=== PATIENT | male | born 1985 | race Caucasian/White ===

== ENCOUNTER 2017-01-21 22:26 | Emergency (ER) | payer MEDICAID ==
[2017-01-21 23:10] LABS: BASOPHILS # (AUTO) 0.1 10^3/uL (0.0-0.1); BASOPHILS % (AUTO) 1.4 %; EOSINOPHILS # (AUTO) 0.1 10^3/uL (0.0-0.7); HCT - HEMATOCRIT 22.2 % (42.0-52.0); HGB - HEMOGLOBIN 7.6 g/dL (14.0-18.0); LYMPHOCYTES # (AUTO) 1.2 10^3/uL (1.5-3.5); LYMPHOCYTES % (AUTO) 30.4 %; MEAN CORPUSCULAR HEMOGLOBIN 30.9 pg (27.0-31.0); MEAN CORPUSCULAR HGB CONC 34.4 g/dL (32.0-36.0); MEAN CORPUSCULAR VOLUME 89.8 fL (80.0-94.0); MEAN PLATELET VOLUME 8.1 fL (7.4-11.4); MONOCYTES # (AUTO) 0.3 10^3/uL (0.0-1.0); NEUTROPHILS # (AUTO) 2.4 10^3/uL (1.5-6.6); NEUTROPHILS % (AUTO) 59.2 %; RED BLOOD COUNT 2.47 10^6/uL (4.70-6.10); RED CELL DISTRIBUTION WIDTH 13.7 % (12.0-15.0); UNCORRECTED WHITE BLOOD COUNT 4.1 x10^3/uL; WHITE BLOOD COUNT 4.1 x10^3/uL (4.8-10.8)
[2017-01-21 23:26] LABS: BILIRUBIN,TOTAL 0.3 mg/dL (0.2-1.0); CALCIUM 8.5 mg/dL (8.5-10.3); CREATININE 2.5 mg/dL (0.6-1.2); MAGNESIUM 1.8 mg/dL (1.7-2.8); PHOSPHORUS 4.6 mg/dL (2.5-4.6); POTASSIUM 4.8 mmol/L (3.5-5.0); TOTAL PROTEIN 6.6 g/dL (6.7-8.2)
[2017-01-22] MEDS ORDERED: SODIUM CHLORIDE 0.9% 1,000 ML IV ONE (00:12)
[2017-01-22] MEDS ORDERED: hydrALAZINE INJ 20 MG/ML VIAL IVP STA (00:41)
[2017-01-22] MEDS ORDERED: hydrALAZINE INJ 20 MG/ML VIAL ONE (01:08)
[2017-01-22 01:31] VITALS: BP 186/100
--- NOTE | 2017-01-22 01:37 | ED Physician Documentation ---
History of Present Illness - Stated complaint Stated Complaint: PALPITATIONS - Chief complaint Chief Complaint: Cardiac - History obtained from History obtained from: Patient, Family - History of Present Illness Timing: Today, How many days ago (2) - Additonal information Additional information: Patient is a 31 year old male with a history of type 1 diabetes, htn and ckd who is presenting to the emergency department for high blood pressure and palpitations. According to patient and family, patient's blood pressure has been out of control recently and at his last doctors appointment his lisinopril was increased from 5mg to 10mg. patient states that his pressures remained elevated and that he had some palpitations so he came in for evaluation. Patient denied any chest pain or shortness of breath at this time. Review of Systems Constitutional: denies: Fever, Chills Eyes: denies: Decreased vision, Photophobia Ears: denies: Ear pain, Drainage/discharge Nose: denies: Epistaxis Throat: reports: Reviewed and negative Cardiac: denies: Chest pain / pressure, Palpitations Respiratory: denies: Dyspnea, Cough, Wheezing GI: denies: Abdominal Pain, Nausea, Vomiting : denies: Dysuria Skin: denies: Rash, Lesions Musculoskeletal: denies: Neck pain, Back pain, Extremity pain Neurologic: denies: Generalized weakness, Focal weakness Immunocompromised: denies: Immunocompromised PD PAST MEDICAL HISTORY - Past Medical History Endocrine/Autoimmune: Type 1 diabetes - Present Medications Home Medications: Ambulatory Orders Medication Instructions Recorded Confirmed Insulin Glargine [Lantus] 36 unit SUBQ ONCE 08/03/12 08/03/12 hydrALAZINE [Apresoline] 25 mg PO TID #21 tablet 01/22/17 - Allergies Allergies/Adverse Reactions: Allergies Allergy/AdvReac Type Severity Reaction Status Date / Time clindamycin Allergy Rash Verified 01/21/17 22:34 vancomycin Allergy Rash Verified 01/21/17 22:34 - Social History Does the pt smoke?: No Smoking Status: Never smoker Does the pt drink ETOH?: Yes Does the pt have substance abuse?: Yes - POLST Patient has POLST: No PD ED PE NORMAL - Vitals Vital signs reviewed: Yes - General General: Alert and oriented X 3, Well developed/nourished - HEENT HEENT: Atraumatic, PERRL, Pharynx benign - Neck Neck: Supple, no meningeal sign, No JVD - Cardiac Cardiac: RRR, No murmur - Respiratory Respiratory: No respiratory distress, Clear bilaterally - Abdomen Abdomen: Soft, Non tender, Non distended - Derm Derm: Normal color, Warm and dry, No rash - Extremities Extremities: No deformity, Normal ROM s pain - Neuro Neuro: Alert and oriented X 3, No motor deficit, No sensory deficit, Normal speech - Psych Psych: Normal mood PD ED PE EXPANDED - HEENT HEENT: Dry mucous membranes Results - Vitals Vitals: Vital Signs - 24 hr 01/21/17 01/21/17 01/21/17 22:32 22:47 23:42 Temperature 36.7 C Heart Rate 108 H 97 96 Respiratory 24 17 12 Rate Blood Pressure 196/116 H 187/104 H 181/105 H O2 Saturation 100 100 100 01/22/17 01/22/17 01/22/17 01:08 01:14 01:19 Temperature Heart Rate 97 96 97 Respiratory 19 17 Rate Blood Pressure 192/122 H 195/104 H 185/100 H O2 Saturation 100 100 01/22/17 01/22/17 01:24 01:30 Temperature Heart Rate 96 99 Respiratory Rate Blood Pressure 180/98 H 186/100 H O2 Saturation Oxygen O2 Source Room air - EKG (time done) 2235 Rate: Rate (enter#) (100) Rhythm: Sinus tachycardia [place]: Normal Intervals: Other (ventribular bigeminy ) Ischemia: Normal ST segments Compare to prior EKG: Old EKG unavailable - Labs Labs: Laboratory Tests 01/21/17 01/21/17 22:50 22:50 WBC 4.1 L RBC 2.47 L Hgb 7.6 L Hct 22.2 L MCV 89.8 MCH 30.9 MCHC 34.4 RDW 13.7 Plt Count 200 MPV 8.1 Neut # 2.4 Lymph # 1.2 L [place] # 0.3 Eos # 0.1 Baso # 0.1 Absolute Nucleated RBC 0.00 Nucleated RBC % 0.0 Sodium 137 Potassium 4.8 Chloride 104 Carbon Dioxide 23 Anion Gap 10.0 BUN 45 H Creatinine 2.5 H Estimated GFR (MDRD) 31 L Glucose 233 H Calcium 8.5 Phosphorus 4.6 Magnesium 1.8 Total Bilirubin 0.3 AST 19 ALT 24 Alkaline Phosphatase 69 Total Protein 6.6 L Albumin 3.3 Globulin 3.3 Albumin/Globulin Ratio 1.0 Lipase 26 PD MEDICAL DECISION MAKING - ED course Complexity details: reviewed old records, reviewed results, re-evaluated patient , considered differential, d/w patient, d/w family, d/w internal consultant ED course: Patient was seen and examined at bedside. ekg was performed and showed bigeminy. IV access was gained and labs were drawn. patient was started on a fluid bolus. Patient's labs revealed multiple abnormalities but a discussion with the patient and his family revealed that the conditions where chronic in nature. 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 due to the persistence of patient's htn case was discussed with hospitalist, Dr. stewart who recommended hydralizine 25 mg tid as an outpatient. Patient was treated with hydralizine 5mg iv push with moderate decrease in blood pressure. Patient was given detailed discharge and follow up instructions. patient required no further work up and was stable for discharge with close outpatient follow up. Departure - Departure Disposition: 01 Home, Self Care Clinical Impression: HTN (hypertension) Condition: Stable Instructions: ED HTN Established Follow-Up: primary,care provider [Other] - Within 3 Days Prescriptions: hydrALAZINE [Apresoline] 25 mg PO TID #21 tablet Comments: Your blood pressure today is elevated and it seems like you have had a worsening or your renal disease. You will be started on a new blood pressure medication but have only been written for a weeks supply. You will need to follow up with your doctor early this week to discuss possibly a halter monitor , and group home management of your htn. You may return to the emergency department at any time for new, worsening or uncontrollable symptoms. Discharge Date/Time: 01/22/17 01:58
--- NOTE | 2017-01-22 01:37 | ED Physician Documentation ---
PD HPI DYSPNEA - Stated complaint Stated Complaint: PALPITATIONS - Chief complaint Chief Complaint: Cardiac - History obtained from History obtained from: Patient, Family PD PAST MEDICAL HISTORY - Past Medical History Endocrine/Autoimmune: Type 1 diabetes - Present Medications Home Medications: Ambulatory Orders Medication Instructions Recorded Confirmed Insulin Glargine [Lantus] 36 unit SUBQ ONCE 08/03/12 08/03/12 - Allergies Allergies/Adverse Reactions: Allergies Allergy/AdvReac Type Severity Reaction Status Date / Time clindamycin Allergy Rash Verified 01/21/17 22:34 vancomycin Allergy Rash Verified 01/21/17 22:34 - Social History Does the pt smoke?: No Smoking Status: Never smoker Does the pt drink ETOH?: Yes Does the pt have substance abuse?: Yes - POLST Patient has POLST: No Results - Vitals Vitals: Vital Signs - 24 hr 01/21/17 01/21/17 01/21/17 22:32 22:47 23:42 Temperature 36.7 C Heart Rate 108 H 97 96 Respiratory 24 17 12 Rate Blood Pressure 196/116 H 187/104 H 181/105 H O2 Saturation 100 100 100 01/22/17 01/22/17 01/22/17 01:08 01:14 01:19 Temperature Heart Rate 97 96 97 Respiratory 19 17 Rate Blood Pressure 192/122 H 195/104 H 185/100 H O2 Saturation 100 100 01/22/17 01/22/17 01:24 01:30 Temperature Heart Rate 96 99 Respiratory Rate Blood Pressure 180/98 H 186/100 H O2 Saturation Oxygen O2 Source Room air - Labs Labs: Laboratory Tests 01/21/17 01/21/17 22:50 22:50 WBC 4.1 L RBC 2.47 L Hgb 7.6 L Hct 22.2 L MCV 89.8 MCH 30.9 MCHC 34.4 RDW 13.7 Plt Count 200 MPV 8.1 Neut # 2.4 Lymph # 1.2 L [place] # 0.3 Eos # 0.1 Baso # 0.1 Absolute Nucleated RBC 0.00 Nucleated RBC % 0.0 Sodium 137 Potassium 4.8 Chloride 104 Carbon Dioxide 23 Anion Gap 10.0 BUN 45 H Creatinine 2.5 H Estimated GFR (MDRD) 31 L Glucose 233 H Calcium 8.5 Phosphorus 4.6 Magnesium 1.8 Total Bilirubin 0.3 AST 19 ALT 24 Alkaline Phosphatase 69 Total Protein 6.6 L Albumin 3.3 Globulin 3.3 Albumin/Globulin Ratio 1.0 Lipase 26
== END 2017-01-22 01:58 | disposition home or self-care (01) ==
LOC: ED 22:26
DX: E10.22 Type 1 diabetes mellitus with diabetic chronic kidney disease (principal); I12.9 Hypertensive chronic kidney disease with stage 1 through stage 4 chronic kidney disease, or unspecified chronic kidney disease; N18.9 Chronic kidney disease, unspecified; Z79.4 Long term (current) use of insulin
CPT/HCPCS: 36415; 80053; 83690; 83735; 84100; 85025; 93005; 96361; 96374; 99284

== ENCOUNTER 2017-01-22 10:28 | Inpatient (IN) | payer MEDICAID ==
[2017-01-22] MEDS ORDERED: SODIUM CHLORIDE 0.9% 1,000 ML IV ONE ×2 (10:55→12:41)
[2017-01-22 11:04] LABS: EOSINOPHILS # (AUTO) 0.1 10^3/uL (0.0-0.7); EOSINOPHILS % (AUTO) 1.1 %; HCT - HEMATOCRIT 24.6 % (42.0-52.0); HGB - HEMOGLOBIN 8.6 g/dL (14.0-18.0); LYMPHOCYTES # (AUTO) 0.8 10^3/uL (1.5-3.5); LYMPHOCYTES % (AUTO) 15.7 %; MEAN CORPUSCULAR VOLUME 88.6 fL (80.0-94.0); MEAN PLATELET VOLUME 8.1 fL (7.4-11.4); MONOCYTES # (AUTO) 0.2 10^3/uL (0.0-1.0); MONOCYTES % (AUTO) 4.9 %; NEUTROPHILS # (AUTO) 3.8 10^3/uL (1.5-6.6); NEUTROPHILS % (AUTO) 77.3 %; RED BLOOD COUNT 2.77 10^6/uL (4.70-6.10); RED CELL DISTRIBUTION WIDTH 13.3 % (12.0-15.0); UNCORRECTED WHITE BLOOD COUNT 4.9 x10^3/uL; WHITE BLOOD COUNT 4.9 x10^3/uL (4.8-10.8)
[2017-01-22 11:11] LABS: BUN - BLOOD UREA NITROGEN 39 mg/dL (6-20); CALCIUM 8.9 mg/dL (8.5-10.3); CARBON DIOXIDE - CO2 22 mmol/L (21-32); CHLORIDE 107 mmol/L (101-111); CREATININE 2.3 mg/dL (0.6-1.2); GFR - MDRD 34 (>89); GLUCOSE 270 mg/dL (70-100); MAGNESIUM 1.7 mg/dL (1.7-2.8); PHOSPHORUS 3.5 mg/dL (2.5-4.6); POTASSIUM 5.1 mmol/L (3.5-5.0); SODIUM 138 mmol/L (135-145)
[2017-01-22 11:27] LABS: ABG ANALYSIS TIME 1115; ABG PCO2 31 mmHg (34-45); ABG PH 7.46 (7.35-7.45); ABG PO2 116 mmHg (80-100)
[2017-01-22 11:28] LABS: ABG HCO3 21.6 mmol/L (22.0-26.0); ABG OXYGEN SATURATION 99 % (94-98); ABG ROOM AIR YES; ABG SITE OF DRAW RIGHT RADIAL; ALLEN TEST POSITIVE
--- NOTE | 2017-01-22 11:35 | XRAY Preliminary Report ---
Exam: XR CHEST 1 VIEW IMPRESSION: 1. No acute disease in the chest. [facility] SITE ID: [id number]
--- NOTE | 2017-01-22 11:37 | XRAY Report ---
EXAM: CHEST RADIOGRAPHY EXAM DATE: 01/22/2017 11:08 AM. CLINICAL HISTORY: Vomiting blood. COMPARISON: 05/06/2012. TECHNIQUE: 1 view. FINDINGS: Lungs/Pleura: No focal opacities evident. No pleural effusion. No pneumothorax. Mediastinum: Within exam limitations, the cardiomediastinal contour is normal. Other: None. IMPRESSION: 1. No acute disease in the chest. [facility] Referring Provider Line: [phone] SITE ID: [id number]
[2017-01-22] MEDS ORDERED: ONDANSETRON 4 MG/2 ML VIAL ONE ×2 (13:04→13:22)
[2017-01-22] MEDS ORDERED: PANTOPRAZOLE 40 MG VIAL IVP STA (13:14)
[2017-01-22] MEDS ORDERED: ONDANSETRON 4 MG/2 ML VIAL IVP STA (13:14)
[2017-01-22] MEDS ORDERED: hydrALAZINE INJ 20 MG/ML VIAL IVP PRN (13:22)
[2017-01-22] MEDS ORDERED: PANTOPRAZOLE 40 MG VIAL ONE (13:23)
--- NOTE | 2017-01-22 13:28 | ED Physician Documentation ---
History of Present Illness - Stated complaint Stated Complaint: VOMITING BLOOD/HIGH BP - Chief complaint Chief Complaint: Abd Pain - History obtained from History obtained from: Patient (Pt is a type 1 DM with known renal issues here for is 3rd ED visit in 3 days (2nd one at this hosptial) for HTN. today he is here for voiting that was streaked with blood.) Review of Systems Constitutional: denies: Fever, Chills Nose: denies: Congestion, Sinus pressure / pain Throat: denies: Dental pain / toothache, Sore throat Cardiac: denies: Chest pain / pressure, Palpitations Respiratory: denies: Dyspnea, Cough, Wheezing GI: reports: Abdominal Pain, Nausea, Vomiting. denies: Constipation, Diarrhea : denies: Dysuria, Frequency Skin: denies: Rash, Laceration (s) Musculoskeletal: denies: Back pain Neurologic: reports: Generalized weakness. denies: Numbness, Confused, Altered mental status, Headache PD PAST MEDICAL HISTORY - Past Medical History Cardiovascular: Hypertension Endocrine/Autoimmune: Type 1 diabetes : Renal insuffiency Other Past Medical History: Stage III kidney failure. Continous glucose monitor back of left arm, insulin pump to right lower abdomen - Present Medications Home Medications: Ambulatory Orders Medication Instructions Recorded Confirmed Insulin Glargine [Lantus] 36 unit SUBQ ONCE 08/03/12 08/03/12 hydrALAZINE [Apresoline] 25 mg PO TID #21 tablet 01/22/17 - Allergies Allergies/Adverse Reactions: Allergies Allergy/AdvReac Type Severity Reaction Status Date / Time clindamycin Allergy Rash Verified 01/21/17 22:34 vancomycin Allergy Rash Verified 01/21/17 22:34 - Social History Does the pt smoke?: No Smoking Status: Never smoker Does the pt drink ETOH?: Yes Does the pt have substance abuse?: Yes - Immunizations Immunizations are current?: Yes - POLST Patient has POLST: No PD ED PE NORMAL - Vitals Vital signs reviewed: Yes - General General: Alert and oriented X 3, No acute distress (mild distress), Well developed/nourished - HEENT HEENT: Atraumatic, PERRL - Cardiac Cardiac: No murmur, No rub. No: RRR (tachycardic but regular) - Respiratory Respiratory: No respiratory distress, Clear bilaterally - Abdomen Abdomen: Soft, Non tender, Non distended - Back Back: No CVA TTP - Derm Derm: Warm and dry, No rash. No: Normal color (pale) - Extremities Extremities: No deformity, No tenderness to palpate - Neuro Neuro: Alert and oriented X 3 Eye Opening: Spontaneous Motor: Obeys Commands Verbal: Oriented GCS Score: 15 - Psych Psych: Normal mood, Normal affect Results - Vitals Vitals: Vital Signs - 24 hr 01/22/17 01/22/17 01/22/17 10:34 11:16 11:25 Temperature 36.2 C L Heart Rate 106 H 108 H 109 H Respiratory 24 14 13 Rate Blood Pressure 178/103 H 177/105 H 191/141 H O2 Saturation 100 100 100 01/22/17 01/22/17 01/22/17 11:59 12:47 13:01 Temperature 36.2 C L Heart Rate 108 H 107 H 110 H Respiratory 12 14 20 Rate Blood Pressure 209/127 H 199/113 H 211/96 H O2 Saturation 100 100 100 Oxygen O2 Source Room air - EKG (time done) 1100 Rate: Rate (enter#) Rhythm: Sinus tachycardia [place]: Normal Intervals: Normal IN QRS: Normal Ischemia: Non specific changes Other comments: Other comments (Multiple PVC (trigeminy) ) - Labs Labs: Laboratory Tests 01/22/17 01/22/17 01/22/17 10:42 10:45 10:45 WBC 4.9 RBC 2.77 L Hgb 8.6 L Hct 24.6 L MCV 88.6 MCH 31.0 MCHC 35.0 RDW 13.3 Plt Count 186 MPV 8.1 Neut # 3.8 Lymph # 0.8 L [place] # 0.2 Eos # 0.1 Baso # 0.0 Absolute Nucleated RBC 0.00 Nucleated RBC % 0.0 Bld Gas Analysis Time Sample Site ABG pH ABG pCO2 ABG pO2 ABG HCO3 ABG Total CO2 ABG O2 Saturation ABG Base Excess Ozzy Test Room Air Sodium 138 Potassium 5.1 H Chloride 107 Carbon Dioxide 22 Anion Gap 9.0 BUN 39 H Creatinine 2.3 H Estimated GFR (MDRD) 34 L Glucose 270 H POC Whole Bld Glucose 264 H Lactic Acid Calcium 8.9 Phosphorus 3.5 Magnesium 1.7 Serum Ketones NEGATIVE 01/22/17 01/22/17 10:45 11:15 WBC RBC Hgb Hct MCV MCH MCHC RDW Plt Count MPV Neut # Lymph # [place] # Eos # Baso # Absolute Nucleated RBC Nucleated RBC % Bld Gas Analysis Time 1115 Sample Site RIGHT RADIAL ABG pH 7.46 H ABG pCO2 31 L ABG pO2 116 H ABG HCO3 21.6 L ABG Total CO2 23.0 ABG O2 Saturation 99 H ABG Base Excess -2.0 Ozzy Test POSITIVE Room Air YES Sodium Potassium Chloride Carbon Dioxide Anion Gap BUN Creatinine Estimated GFR (MDRD) Glucose POC Whole Bld Glucose Lactic Acid 0.6 Calcium Phosphorus Magnesium Serum Ketones - Rads (name of study) CXR Radiology: Final report received PD MEDICAL DECISION MAKING - ED course Complexity details: d/w patient ED course: Pt anemic, tachycardic and vomiting. his creat elevated today. pt states that he has had kidney issues in the past but did not know his creat elevation. he states that he has been anemic in the past and has had iron transfusions but never a blood transfusion. He denied rectal bleeding. Has been in DKA in the past but with normal ABG today does not appear to be in DKA today. No urinary sx but he has not been able to urinate for us. I suspect his elevated creat and tachycardia is from dehydration. Hs BP is elevated today. No ABD pain. Gave protonix in the ER for his blood streaked vomit and his anemia to cover for a GI bleed. Discussed case with inpatient team will admit. Departure - Departure Disposition: ED Place in Observation Clinical Impression: Dehydration, Acute kidney injury Type 1 diabetes mellitus Qualifiers: Diabetes mellitus complication status: with unspecified complications Qualified Code(s): E10.8 - Type 1 diabetes mellitus with unspecified complications Hypertension Qualifiers: Hypertension type: unspecified Qualified Code(s): I10 - Essential (primary) hypertension Anemia Qualifiers: Anemia type: unspecified type Qualified Code(s): D64.9 - Anemia, unspecified Condition: Stable
[2017-01-22] MEDS ORDERED: ACETAMINOPHEN 325 MG TABLET PO PRN (13:47)
[2017-01-22] MEDS ORDERED: ONDANSETRON 4 MG/2 ML VIAL IVP PRN (13:47)
[2017-01-22] MEDS ORDERED: SODIUM CHLORIDE FLUSH 0.9% 10 ML SYRINGE IVP PRN (13:47)
--- NOTE | 2017-01-22 14:17 | HISTORY & PHYSICAL EXAMINATION ---
Chief Complaint - Chief Complaint Chief Complaint: nausea, vomiting and hypertensive History of Present Illness - Admitted From Admitted From:: ER - History Obtained From History obtained from: pt and his - History of Present Illness HPI Comment/Other: This is a 31-year-old male with a past medical history significance for DM1 since 10 years old on insulin Pump, HTN, chronic renal insufficiency, who present ER for evaluation of nausea, vomiting and hypertensive. Pt's alert and oriented, and generalized weakness. Pt's mainly provide the information. Pt had a regular visit on [facility] to visit his PCP, also his Assistant Office Manager four day ago. Pt also had two visits to his ER for hypertensive. Pt did not feel better and began to have nausea and vomiting. Pt' s vomiting was also streaked with very small blood. Pt's report this happened before when pt had an extensive vomiting. Pt use his insulin pump to control his glucose. Pt has a chronic anemia for at least one year. 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 Pt report he has some headache, and also state it may derive from his high blood pressure. Pt denies chest pain, fever, chill, cough, shortness of breath, abdominal pain, diarrhea, dysuria, hematuria, vision changing, GI bleeding. lab test in ER reveals BUN 39, creatinine 2.3, glucose 264, lactic acid 0.6, serum ketones is negative, Potassium 5.1, HGB 8.6, HCT 24.6. BP is 210/109, HR 104. CXR is unremarkable. History - Past Medical History Cardiovascular: reports: Hypertension Endocrine/Autoimmune: reports: Type 1 diabetes : reports: Renal insuffiency MRSA Hx?: Yes Other Past Medical History: Stage III kidney failure. Continous glucose monitor back of left arm, insulin pump to right lower abdomen - Family & Social History Living arrangement: At home Living Situation: With spouse/s.o. - POLST Patient has POLST: No Meds/Allgy - Home Medications Home Medications: Ambulatory Orders Medication Instructions Recorded Confirmed Imipramine [Tofranil] 50 mg PO QPM 01/22/17 01/22/17 Insulin Aspart (Vial) [NovoLOG 32 - 36 unit SUBQ DAILY 01/22/17 01/22/17 (VIAL FOR ED USE)] Lisinopril 10 mg PO QPM 01/22/17 01/22/17 - Allergies Allergies/Adverse Reactions: Allergies Allergy/AdvReac Type Severity Reaction Status Date / Time clindamycin Allergy Rash Verified 01/21/17 22:34 vancomycin Allergy Rash Verified 01/21/17 22:34 hydralazine AdvReac Emesis Verified 01/22/17 16:20 Review of Systems - Constitutional Constitutional: reports: Fatigue, Weakness. denies: Fever, Chills, Malaise, Diaphoresis, Night sweats - Eyes Eyes: denies: Pain, Irritation, Amaurosis, Blurred vision, Spots in vision, Field loss, Vision loss, Dipolpia - Ears, Nose & Throat Ears, Nose & Throat: denies: Ear pain, Hearing loss, Hearing aids, Vertigo, Nasal pain, Nasal discharge, Nosebleeds, Nasal obstruction, Nasal congestion, Sore throat, Mouth lesions, Bleeding gums - Cardiovascular Cariovascular: denies: Irregular heart rate, Palpitations, Chest pain, Edema, Lightheadedness, Syncope, Exertional dyspnea, Decr. exercise tolerance - Respiratory Respiratory: denies: Cough, Sputum production, Wheezing, Snoring, Hemoptysis, Orthopnea, SOB at rest, SOB with exertion - Gastrointestinal Gastrointestinal: reports: Nausea, Vomiting. denies: Abdominal pain, Abdominal distention, Constipation, Diarrhea, Change in bowel habits, Rectal bleeding, Black stools, Bloody stools, Torres blood emesis, Coffee grounds emesis - Genitourinary Genitourinary: denies: Dysuria, Frequency, Urgency, Hematuria, Incontinence, Flank pain, Nocturia - Musculoskeletal Musculoskeletal: denies: Muscle pain, Back pain, Muscle aches, Stiffness, Limited range of motion, Muscle weakness, Gout, Joint pain - Integumentary Integumentary: denies: Rash, Pruritis, Lesions, Dryness, Acne, Pigment changes - Neurological Neurological: reports: General weakness. denies: Focal weakness, Dizziness, Numbness, Memory problems, Pre-existing deficit, Abnormal gait, Seizures, Incoordination, Slurred speech - Psychiatric Psychiatric: denies: Depression, Anxiety, Suicidal, Delusions, Hallucinations, Homicidal - Endocrine Endocrine: denies: Polyuria, Polydypsia, Polyphagia, Intolerance to cold - Hematologic/Lymphatic Hematologic/Lymphatic: reports: Anemia. denies: Bruising, Petechiae, Blood clots, Lymphadenopathy, Bleeding tendencies, Recurrent infections Exam - Vital Signs Reviewed Vital Signs: Yes Vital Signs: Vital Signs x48h Pulse Resp BP Pulse Ox 01/22/17 13:48 104 H 12 210/107 H 96 - Physical Exam General Appearance: positive: No acute distress, Alert. negative: Lethargic Eyes Bilateral: positive: Normal inspection, PERRL, No lid inflammation, Conjunctivae nml ENT: positive: ENT inspection nml, Pharynx nml, No signs of dehydration. negative: Purulent nasal drainage, Pharyngeal erythema, Oral lesions Neck: positive: Nml inspection, Thyroid nml, No JVD, Trachea midline. negative : Thyromegaly, Lymphadenopathy (R), Lymphadenopathy (L), Stiff neck, Carotid bruit, Swelling/bruising, Tracheal deviation Respiratory: positive: Chest non-tender, No respiratory distress, Breath sounds nml. negative: Wheezes, Rales, Rhonchi Cardiovascular: positive: Regular rate & rhythm, No murmur, No gallop. negative : Tachycardia, Bradycardia, Systolic murmur, Diastolic murmur Peripheral Pulses: positive: 2+ Abdomen: positive: Non-tender, No organomegaly, Nml bowel sounds, No distention. negative: Tenderness, Guarding, Rebound Back: positive: Nml inspection. negative: CVA tenderness (R), CVA tenderness (L ) Skin: positive: Color nml, No rash, Warm, Dry. negative: Cyanosis, Diaphoresis , Pallor, Skin rash Extremities: positive: Non-tender, Full ROM, Nml appearance. negative: Calf tenderness, Joint swelling, Fariha's sign/cords Neurologic/Psychiatric: positive: Oriented x3, Sensation nml, Mood/affect nml. negative: Sensory loss, Facial droop, Slurred/abnml speech, Depressed mood/ affect Conclusion/Plan - Problem List (1) HTN (hypertension) Conclusion/Plan: pt's BP is over 200/109, and HR over 100 in ER, pt had chronic renal insufficiency hold home BP Lisinopril once Metoprolol IV 5 mg add Clonidine PRN 25 mg metoprolol Bid vital, tele monitor daily lab Qualifiers: Hypertension type: unspecified Qualified Code(s): I10 - Essential (primary ) hypertension (2) Type 1 diabetes mellitus Conclusion/Plan: pt may use home insulin Pump ACHS check A1C hypoglycemia protocol Qualifiers: Diabetes mellitus complication status: with unspecified complications Qualified Code(s): E10.8 - Type 1 diabetes mellitus with unspecified complications (3) Acute kidney injury Conclusion/Plan: Four years ago, pt's renal function in [facility], may acute on chronic renal insufficiency. Pt ER already had two bag NS continue 100 cc/h NS daily lab monitor renal function vital monitor hold nephrotoxic agent. US of kidney check CKP UA is pending , will follow up (4) Anemia Conclusion/Plan: pt had chronic anemia, pt had CKD order anemia study, will follow. Pt's HGB 8.7, asymptomatic pt already had Cross and match study, Qualifiers: Anemia type: unspecified type Qualified Code(s): D64.9 - Anemia, unspecified (5) Hematemesis/vomiting blood Conclusion/Plan: pt's state only happen when pt had streaked vomiting, and small amount will check H&H closely monitor will follow up if pt need scopy (6) Hyperkalemia Conclusion/Plan: pt's K is 5.1. will recheck potassium level EKG follow up (7) DVT prophylaxis Conclusion/Plan: SCD and Heparin (8) Full code status Conclusion/Plan: pt request full code status - Lab Results Fish Bones: 01/22/17 10:45 01/22/17 14:03 Issues/Core Measures - Anticipated LOS Anticipated Stay Length: Less than 2 midnights (expect less than 2 midnight)
[2017-01-22 14:39] LABS: HEMOGLOBIN A1C 0.59 g/dL
[2017-01-22] MEDS: SODIUM CHLORIDE FLUSH 0.9% 10 ML SYRINGE IVP SCH ×2 (15:12→22:43)
[2017-01-22] MEDS: SODIUM CHLORIDE 0.9% 1,000 ML IV SCH (15:16)
[2017-01-22] MEDS: PROMETHAZINE 25 MG/1 ML VIAL IM PRN ×2 (15:22→21:57)
[2017-01-22] MEDS ORDERED: METOPROLOL 5 MG/5 ML VIAL IVP SCH (16:00)
[2017-01-22 17:00] LABS: IMMATURE RETIC FRACTION 0.39; RED BLOOD COUNT 2.5 10^6/uL (4.70-6.10)
[2017-01-22 17:06] LABS: HCT - HEMATOCRIT 22.8 % (42.0-52.0); HGB - HEMOGLOBIN 7.8 g/dL (14.0-18.0)
[2017-01-22 18:00] LABS: BILIRUBIN,URINE NEGATIVE (NEGATIVE)
[2017-01-22 18:01] LABS: FERRITIN 230.6 ng/mL (23.9-336.2)
[2017-01-22 18:02] LABS: UA w/ MICROSCOPIC CHARGE YES
[2017-01-22 18:11] LABS: UR CULTURE IF IND NOT INDICATED
[2017-01-22 18:58] LABS: IRON 64 ug/dL (45-182); TOTAL IRON BINDING CAPACITY 251 ug/dL (250-450); TRANSFERRIN 179 mg/dL (180-329)
--- NOTE | 2017-01-22 20:10 | Ultrasound Preliminary Report ---
Exam: US RETROPERITONEAL IMPRESSION: No hydronephrosis. [facility] SITE ID: [id number]
--- NOTE | 2017-01-22 20:29 | Ultrasound Report ---
EXAM: RENAL ULTRASOUND EXAM DATE: 01/22/2017 08:00 PM. CLINICAL HISTORY: Acute on chronic kidney disease. COMPARISON: None. TECHNIQUE: Real-time scanning was performed with static images obtained. FINDINGS: Right Kidney: 12.7 x 5.1 x 6.3 cm. Normal echotexture with no stones, contour-deforming masses, or h ydronephrosis. Left Kidney: 12.4 x 6.2 x 7.2 cm. Normal echotexture with no stones, contour-deforming masses, or hyd ronephrosis. Bladder: Bilateral jets seen. The prevoid bladder volume was 346.9 mL. The postvoid bladder volume wa s 235.3 mL. IMPRESSION: 1. No hydronephrosis. 2. Large post void residual in the bladder. [facility] Referring Provider Line: [phone] SITE ID: [id number]
[2017-01-22] MEDS ORDERED: METOPROLOL SUCCINATE 25 MG TABLET PO SCH ×2 (21:00)
[2017-01-22] MEDS ORDERED: ZOLPIDEM 5 MG TABLET PO PRN (21:03)
[2017-01-22] MEDS ORDERED: BENZOCAINE/MENTHOL LOZENGE MM PRN (21:03)
[2017-01-22] MEDS: HEPARIN 5,000 UNIT/ML VIAL SUBQ SCH (21:09)
[2017-01-22] MEDS: METOPROLOL SUCCINATE 25 MG TABLET PO SCH (21:09)
[2017-01-23] MEDS: SODIUM CHLORIDE 0.9% 1,000 ML IV SCH (01:14)
[2017-01-23 04:53] LABS: BASOPHILS # (AUTO) 0.1 10^3/uL (0.0-0.1); EOSINOPHILS % (AUTO) 0.7 %; HCT - HEMATOCRIT 20.2 % (42.0-52.0); HGB - HEMOGLOBIN 7.1 g/dL (14.0-18.0); LYMPHOCYTES # (AUTO) 1.6 10^3/uL (1.5-3.5); LYMPHOCYTES % (AUTO) 27.1 %; MEAN CORPUSCULAR HEMOGLOBIN 31.4 pg (27.0-31.0); MEAN CORPUSCULAR HGB CONC 35.3 g/dL (32.0-36.0); MEAN PLATELET VOLUME 7.9 fL (7.4-11.4); MONOCYTES # (AUTO) 0.5 10^3/uL (0.0-1.0); MONOCYTES % (AUTO) 7.8 %; NEUTROPHILS # (AUTO) 3.8 10^3/uL (1.5-6.6); NEUTROPHILS % (AUTO) 63.4 %; NUCLEATED RED BLOOD CELLS AUTO 0.2 /100WBC; RED BLOOD COUNT 2.28 10^6/uL (4.70-6.10); RED CELL DISTRIBUTION WIDTH 13.5 % (12.0-15.0)
[2017-01-23] MEDS: SODIUM CHLORIDE FLUSH 0.9% 10 ML SYRINGE IVP SCH ×3 (05:04→20:48)
[2017-01-23] MEDS: PANTOPRAZOLE 40 MG VIAL IVP SCH (05:04)
[2017-01-23] MEDS: PROMETHAZINE 25 MG/1 ML VIAL IM PRN (05:04)
[2017-01-23 05:05] LABS: ALBUMIN/GLOBULIN RATIO 0.9 (1.0-2.2); BILIRUBIN,TOTAL 0.3 mg/dL (0.2-1.0); CALCIUM 8.4 mg/dL (8.5-10.3); CREATININE 2.3 mg/dL (0.6-1.2); MAGNESIUM 1.7 mg/dL (1.7-2.8); TOTAL PROTEIN 5.8 g/dL (6.7-8.2)
[2017-01-23] MEDS: POLYETHYLENE GLYCOL 3350 17 GM PACKET PO SCH (07:41)
[2017-01-23] MEDS: HEPARIN 5,000 UNIT/ML VIAL SUBQ SCH ×2 (08:49→20:44)
[2017-01-23] MEDS: METOPROLOL SUCCINATE 25 MG TABLET PO SCH ×2 (08:50→20:48)
[2017-01-23 10:18] LABS: HCT - HEMATOCRIT 21.2 % (42.0-52.0); HGB - HEMOGLOBIN 7.3 g/dL (14.0-18.0)
[2017-01-23] MEDS: FERROUS SULFATE 325 MG TABLET PO SCH (10:45)
[2017-01-23] MEDS: cloNIDine 0.1 MG TABLET PO PRN (14:05)
[2017-01-23] MEDS ORDERED: METOPROLOL TARTRATE 50 MG TABLET PO ONE (16:00)
[2017-01-23 18:34] LABS: HCT - HEMATOCRIT 28.3 % (42.0-52.0); HGB - HEMOGLOBIN 9.5 g/dL (14.0-18.0)
--- NOTE | 2017-01-23 18:37 | PROVIDER PROGRESS NOTE ---
Subjective - Prog Note Date Prog Note Date: 01/23/17 Objective - Vital Signs/Intake & Output Vital Signs: Vital Signs x48h Temp Pulse Pulse Resp BP BP Pulse Ox 01/23/17 17:46 37.0 C 76 16 151/98 H 01/23/17 15:36 179/101 H 01/23/17 15:19 92 179/101 H 01/23/17 14:41 37.1 C 93 16 167/101 H 01/23/17 14:24 37.0 C 95 16 174/106 H 01/23/17 13:56 36.9 C 95 16 172/102 H 01/23/17 13:00 36.9 C 95 16 172/102 H 99 01/23/17 10:48 36.9 C 87 16 151/96 H Intake & Output: Intake & Output 01/20/17 01/21/17 01/22/17 01/23/17 23:59 23:59 23:59 23:59 Intake Total 1200 5313.667 Output Total 1100 300 Balance 100 5013.667 - Lab Results Fish Bones: 01/23/17 18:16 01/23/17 04:40 Other Labs: Lab Results x24hrs 01/23/17 01/23/17 01/23/17 Range/Units 10:06 04:40 04:40 WBC 6.0 (4.8-10.8) x10^3/uL RBC 2.28 L (4.70-6.10) 10^6/uL Hgb 7.3 L 7.1 L (14.0-18.0) g/dL Hct 21.2 L 20.2 L (42.0-52.0) % MCV 89.0 (80.0-94.0) fL MCH 31.4 H (27.0-31.0) pg MCHC 35.3 (32.0-36.0) g/dL RDW 13.5 (12.0-15.0) % Plt Count 161 (130-450) 10^3/uL MPV 7.9 (7.4-11.4) fL Neut # 3.8 (1.5-6.6) 10^3/uL Lymph # 1.6 (1.5-3.5) 10^3/uL [place] # 0.5 (0.0-1.0) 10^3/uL Eos # 0.0 (0.0-0.7) 10^3/uL Baso # 0.1 (0.0-0.1) 10^3/uL Absolute Nucleated RBC 0.01 x10^3/uL Nucleated RBC % 0.2 /100WBC Sodium 144 (135-145) mmol/L Potassium 4.0 (3.5-5.0) mmol/L Chloride 115 H (101-111) mmol/L Carbon Dioxide 22 (21-32) mmol/L Anion Gap 7.0 (6-13) BUN 35 H (6-20) mg/dL Creatinine 2.3 H (0.6-1.2) mg/dL Estimated GFR (MDRD) 34 L (>89) Glucose 63 L (70-100) mg/dL Calcium 8.4 L (8.5-10.3) mg/dL Magnesium 1.7 (1.7-2.8) mg/dL Iron (45-182) ug/dL TIBC (250-450) ug/dL % Saturation (20-50) % Transferrin (180-329) mg/dL Total Bilirubin 0.3 (0.2-1.0) mg/dL AST 19 (10-42) IU/L ALT 21 (10-60) IU/L Alkaline Phosphatase 56 (42-121) IU/L Total Protein 5.8 L (6.7-8.2) g/dL Albumin 2.8 L (3.2-5.5) g/dL Globulin 3.0 (2.1-4.2) g/dL Albumin/Globulin Ratio 0.9 L (1.0-2.2) 01/22/17 Range/Units 16:47 WBC (4.8-10.8) x10^3/uL RBC (4.70-6.10) 10^6/uL Hgb (14.0-18.0) g/dL Hct (42.0-52.0) % MCV (80.0-94.0) fL MCH (27.0-31.0) pg MCHC (32.0-36.0) g/dL RDW (12.0-15.0) % Plt Count (130-450) 10^3/uL MPV (7.4-11.4) fL Neut # (1.5-6.6) 10^3/uL Lymph # (1.5-3.5) 10^3/uL [place] # (0.0-1.0) 10^3/uL Eos # (0.0-0.7) 10^3/uL Baso # (0.0-0.1) 10^3/uL Absolute Nucleated RBC x10^3/uL Nucleated RBC % /100WBC Sodium (135-145) mmol/L Potassium (3.5-5.0) mmol/L Chloride (101-111) mmol/L Carbon Dioxide (21-32) mmol/L Anion Gap (6-13) BUN (6-20) mg/dL Creatinine (0.6-1.2) mg/dL Estimated GFR (MDRD) (>89) Glucose (70-100) mg/dL Calcium (8.5-10.3) mg/dL Magnesium (1.7-2.8) mg/dL Iron 64 (45-182) ug/dL TIBC 251 (250-450) ug/dL % Saturation 26 (20-50) % Transferrin 179 L (180-329) mg/dL Total Bilirubin (0.2-1.0) mg/dL AST (10-42) IU/L ALT (10-60) IU/L Alkaline Phosphatase (42-121) IU/L Total Protein (6.7-8.2) g/dL Albumin (3.2-5.5) g/dL Globulin (2.1-4.2) g/dL Albumin/Globulin Ratio (1.0-2.2) Assessment/Plan - Problem List (1) HTN (hypertension) Impression: Conclusion/Plan: adjust 25 mg metoprolol to 50 mg bid, since pt's BP is still around 160-170, HR around 90 continue vital monitor plan D/C tomorrow pt's BP is over 200/109, and HR over 100 in ER, pt had chronic renal insufficiency hold home BP Lisinopril once Metoprolol IV 5 mg add Clonidine PRN 25 mg metoprolol Bid vital, tele monitor daily lab (2) Type 1 diabetes mellitus Conclusion/Plan: stable, continue insulin PUMP ACHS hypoglycemia protocol pt may use home insulin Pump ACHS check A1C hypoglycemia protocol (3) Acute kidney injury Conclusion/Plan: US of kidney reviewed, unremarkable, the cause of injury appear from DM1 uncontrolled glucose and uncontrolled HTN hydration control glucose by insulin PUMP control HTN by BP meds Four years ago, pt's renal function in [facility], may acute on chronic renal insufficiency. Pt ER already had two bag NS continue 100 cc/h NS daily lab monitor renal function vital monitor hold nephrotoxic agent. US of kidney check CKP UA is pending , will follow up (4) Anemia Conclusion/Plan: pt denies any GI and rectal GI blood transfused two units of blood will recheck HGB level pt had chronic anemia, pt had CKD order anemia study, will follow. Pt's HGB 8.7, asymptomatic pt already had Cross and match study, (5) Hematemesis/vomiting blood Conclusion/Plan: pt report he did not have hematemesis recheck CBC, follow up pt's state only happen when pt had streaked vomiting, and small amount will check H&H closely monitor will follow up if pt need scopy (6) Hyperkalemia Conclusion/Plan: resolved pt's K is 5.1. will recheck potassium level EKG follow up Qualifiers: Hypertension type: unspecified Qualified Code(s): I10 - Essential (primary ) hypertension (2) Type 1 diabetes mellitus Qualifiers: Diabetes mellitus complication status: with unspecified complications Qualified Code(s): E10.8 - Type 1 diabetes mellitus with unspecified complications (4) Anemia Qualifiers: Anemia type: unspecified type Qualified Code(s): D64.9 - Anemia, unspecified
[2017-01-24 05:18] LABS: EOSINOPHILS # (AUTO) 0.1 10^3/uL (0.0-0.7); EOSINOPHILS % (AUTO) 1.9 %; HCT - HEMATOCRIT 29.3 % (42.0-52.0); HGB - HEMOGLOBIN 10.1 g/dL (14.0-18.0); LYMPHOCYTES # (AUTO) 1.5 10^3/uL (1.5-3.5); LYMPHOCYTES % (AUTO) 33.9 %; MEAN CORPUSCULAR HEMOGLOBIN 30.5 pg (27.0-31.0); MEAN CORPUSCULAR HGB CONC 34.4 g/dL (32.0-36.0); MEAN CORPUSCULAR VOLUME 88.7 fL (80.0-94.0); MEAN PLATELET VOLUME 8.2 fL (7.4-11.4); MONOCYTES # (AUTO) 0.4 10^3/uL (0.0-1.0); MONOCYTES % (AUTO) 9.7 %; NEUTROPHILS # (AUTO) 2.4 10^3/uL (1.5-6.6); NEUTROPHILS % (AUTO) 53.5 %; RED BLOOD COUNT 3.31 10^6/uL (4.70-6.10); RED CELL DISTRIBUTION WIDTH 14.4 % (12.0-15.0); UNCORRECTED WHITE BLOOD COUNT 4.5 x10^3/uL; WHITE BLOOD COUNT 4.5 x10^3/uL (4.8-10.8)
[2017-01-24 05:35] LABS: ALBUMIN/GLOBULIN RATIO 0.9 (1.0-2.2); BILIRUBIN,TOTAL 0.4 mg/dL (0.2-1.0); CALCIUM 8.6 mg/dL (8.5-10.3); CREATININE 2.1 mg/dL (0.6-1.2); POTASSIUM 3.8 mmol/L (3.5-5.0); TOTAL PROTEIN 6.4 g/dL (6.7-8.2)
[2017-01-24] MEDS: PANTOPRAZOLE 40 MG VIAL IVP SCH (06:46)
[2017-01-24] MEDS: SODIUM CHLORIDE FLUSH 0.9% 10 ML SYRINGE IVP SCH ×3 (06:46→20:50)
[2017-01-24] MEDS: POLYETHYLENE GLYCOL 3350 17 GM PACKET PO SCH (07:48)
[2017-01-24] MEDS: FERROUS SULFATE 325 MG TABLET PO SCH (08:02)
[2017-01-24] MEDS: HEPARIN 5,000 UNIT/ML VIAL SUBQ SCH (08:02)
[2017-01-24] MEDS: METOPROLOL SUCCINATE 25 MG TABLET PO SCH ×2 (08:03→20:50)
[2017-01-24] MEDS: amLODIPine 5 MG TABLET PO SCH (10:02)
[2017-01-24] MEDS: cloNIDine 0.1 MG TABLET PO PRN (11:39)
[2017-01-24] MEDS: metOLazone 2.5 MG TABLET PO SCH (14:04)
[2017-01-24] MEDS ORDERED: amLODIPine 5 MG TABLET PO ONE (17:00)
--- NOTE | 2017-01-24 18:22 | PROVIDER PROGRESS NOTE ---
Subjective - Prog Note Date Prog Note Date: 01/24/17 Prog Note Time: 08:00 - Subjective Pt reports feeling: No change Subjective: Earl wishes to go home, but still struggling with B/P control. He has no other complaints. He denies SOB, chest pain, N/V or new cough. He had a headache earlier, but now has subsided. Current Medications - Current Medications Current Medications: Active Medications Generic Name Dose Route Start Last Admin Trade Name Freq PRN Reason Stop Dose Admin Acetaminophen 650 mg 01/22/17 13:47 01/22/17 21:08 Tylenol PO 650 mg Q4HR PRN Administration Pain 1 to 4 Amlodipine Besylate 5 mg 01/24/17 09:00 01/24/17 10:02 Norvasc PO 5 mg DAILY MARY Administration Clonidine HCl 0.1 mg 01/22/17 13:27 01/24/17 11:39 Catapres PO 0.1 mg BID PRN Administration Hypertensive Emergency Ferrous Sulfate 325 mg 01/23/17 10:00 01/24/17 08:02 Feosol PO 325 mg DAILYWM MARY Administration Heparin Sodium (Porcine) 5,000 unit 01/22/17 21:00 01/24/17 08:02 SUBQ Not Given BID MARY Metolazone 2.5 mg 01/24/17 14:00 01/24/17 14:04 Zaroxolyn PO 2.5 mg DAILY MARY Administration Metoprolol Succinate 50 mg 01/23/17 14:33 01/24/17 08:03 Toprol Xl PO 50 mg BID MARY Administration Ondansetron HCl 4 mg 01/22/17 13:47 01/22/17 21:23 Zofran Inj IVP 4 mg Q6HR PRN Administration Nausea / Vomiting Pantoprazole Sodium 40 mg 01/23/17 07:00 01/24/17 06:46 Protonix IVP 40 mg QDAC MARY Administration Polyethylene Glycol 17 gm 01/23/17 09:00 01/24/17 07:48 Miralax PO Not Given DAILY MARY Promethazine HCl 25 mg 01/22/17 13:47 01/23/17 05:04 Phenergan Inj IM 25 mg Q6HR PRN Administration Nausea / Vomiting Sodium Chloride 10 ml 01/22/17 13:47 Normal Saline Flush 0.9% IVP PRN PRN NEEDED PER PROVIDER ORDERS Sodium Chloride 10 ml 01/22/17 14:00 01/24/17 14:04 Normal Saline Flush 0.9% IVP 10 ml Q8HR MARY Administration Throat Lozenges 1 lozenge 01/22/17 21:03 01/22/17 21:22 Cepacol MM 1 lozenge Q2HR PRN Administration Mouth Sore Pain Zolpidem Tartrate 5 mg 01/22/17 21:03 01/22/17 21:22 Ambien PO 5 mg QPM PRN Administration Insomnia Imipramine [Tofranil] 50 mg PO QPM 01/22/17 Insulin Aspart (Vial) [NovoLOG (VIAL FOR ED USE)] 32 - 36 unit SUBQ DAILY Lisinopril 10 mg PO QPM 01/22/17 Objective - Vital Signs/Intake & Output Reviewed Vital Signs: Yes Vital Signs: Vital Signs x48h Temp Pulse Resp BP Pulse Ox 01/24/17 17:00 36.6 C 84 16 151/97 H 100 01/24/17 15:43 36.5 C 81 18 156/102 H 100 01/24/17 12:42 84 20 175/110 H 100 01/24/17 11:30 174/102 H 01/24/17 11:20 81 172/101 H Intake & Output: Intake & Output 01/21/17 01/22/17 01/23/17 01/24/17 23:59 23:59 23:59 23:59 Intake Total 450 780 Balance 450 780 - Objective General Appearance: positive: No acute distress, Alert Eyes Bilateral: positive: Normal inspection, PERRL ENT: positive: ENT inspection nml, Pharynx nml, No signs of dehydration Neck: positive: Nml inspection, Thyroid nml, No JVD, Trachea midline Respiratory: positive: Chest non-tender, No respiratory distress, Breath sounds nml Cardiovascular: positive: Regular rate & rhythm, No gallop, Systolic murmur Peripheral Pulses: 2+ Radial (R), 2+ Radial (L) Abdomen: positive: Non-tender, No organomegaly, Nml bowel sounds, No distention Back: positive: Nml inspection Skin: positive: Color nml, No rash, Warm, Dry Extremities: positive: Non-tender, Full ROM, Nml appearance (left foot and all 5 toes removal in October 2015, skin intact.), Pedal edema (mild, dependent) Reflexes: Bicep (R): 4+, Bicep (L): 4+ - Lab Results Fish Bones: 01/24/17 04:52 01/24/17 04:52 Other Labs: Lab Results x24hrs 01/24/17 01/24/17 Range/Units 04:52 04:52 WBC 4.5 L (4.8-10.8) x10^3/uL RBC 3.31 L (4.70-6.10) 10^6/uL Hgb 10.1 L (14.0-18.0) g/dL Hct 29.3 L (42.0-52.0) % MCV 88.7 (80.0-94.0) fL MCH 30.5 (27.0-31.0) pg MCHC 34.4 (32.0-36.0) g/dL RDW 14.4 (12.0-15.0) % Plt Count 163 (130-450) 10^3/uL MPV 8.2 (7.4-11.4) fL Neut # 2.4 (1.5-6.6) 10^3/uL Lymph # 1.5 (1.5-3.5) 10^3/uL [place] # 0.4 (0.0-1.0) 10^3/uL Eos # 0.1 (0.0-0.7) 10^3/uL Baso # 0.0 (0.0-0.1) 10^3/uL Absolute Nucleated RBC 0.00 x10^3/uL Nucleated RBC % 0.0 /100WBC Sodium 142 (135-145) mmol/L Potassium 3.8 (3.5-5.0) mmol/L Chloride 112 H (101-111) mmol/L Carbon Dioxide 24 (21-32) mmol/L Anion Gap 6.0 (6-13) BUN 27 H (6-20) mg/dL Creatinine 2.1 H (0.6-1.2) mg/dL Estimated GFR (MDRD) 38 L (>89) Glucose 64 L (70-100) mg/dL Calcium 8.6 (8.5-10.3) mg/dL Total Bilirubin 0.4 (0.2-1.0) mg/dL AST 28 (10-42) IU/L ALT 23 (10-60) IU/L Alkaline Phosphatase 63 (42-121) IU/L Total Protein 6.4 L (6.7-8.2) g/dL Albumin 3.1 L (3.2-5.5) g/dL Globulin 3.3 (2.1-4.2) g/dL Albumin/Globulin Ratio 0.9 L (1.0-2.2) - Diagnostic Imaging Diagnostic Imaging Results: positive: Prelim report reviewed Diagnostic Imaging Comments: Renal artery US: pending. Nephrology suggested this test. Assessment/Plan - Problem List (1) HTN (hypertension) Impression: Patient has a known history of HTN, but has been in somewhat of a hypertensive emergency and was the primary indication for this admission. Although his complaints of headaches has subsided, his B/Ps remain elevated around 180's SBP , 110 DBPs. Nephrology was called today who suggested adding a diuretic to medications and obtaining a renal artery US. Plan: Obtain renal artery US-pending. Add metolozone 2.5mg, continue all other medications. Qualifiers: Hypertension type: unspecified Qualified Code(s): I10 - Essential (primary ) hypertension (2) [id number] renal failure Impression: Patient has had DM type 1 since age 10, but has only suffered from CKD for only the past few years. Suspect due to uncontrolled BSs. Plan: Monitor labs, obtain renal artery US, avoid nephrotoxins, and continue B/ P control. (3) Type 1 diabetes mellitus Impression: Patient has an insulin pump that has now been placed on hold for no longer administering a basal dose due to at least 3 hypoglycemic times while in our care. Plan: Patient will resume normal BS control with personal DM pump located in [facility]. Suggest prompt follow up after discharge with director medical surgical. Qualifiers: Diabetes mellitus complication status: with unspecified complications Qualified Code(s): E10.8 - Type 1 diabetes mellitus with unspecified complications
--- NOTE | 2017-01-24 23:45 | Ultrasound Preliminary Report ---
Exam: US ARTERIAL VISCERAL COMPLETE IMPRESSION: 1. No hemodynamically significant renal artery stenosis. Increased resistive index in the left upper and right mid and upper kidney. Significance is unclear. 2. Renal veins are patent. [facility] SITE ID: [id number]
--- NOTE | 2017-01-25 00:04 | Ultrasound Report ---
EXAM: RENAL ARTERY DOPPLER ULTRASOUND EXAM DATE: 01/24/2017 10:49 PM. CLINICAL HISTORY: Rule out renal artery stenosis. Hypertension. COMPARISON: 01/22/2017. TECHNIQUE: Real-time sonographic vascular imaging was performed by the pottery decoration designer through the renal arterial system with a linear transducer utilizing color-flow, Doppler flow, and spectral analysis. M ultiple advertising representative static images were saved for review. FINDINGS: Small amount of fluid in the right upper quadrant. Right Kidney: 11.3 X 5.6 X 5.7 cm. Right Segmental Artery: Upper pole: PSV 26.3 cm/sec, RI 0.84. Mid pole: PSV 24.9 cm/sec, RI 0.98. Lower pole: PSV 22.6 cm/sec, RI 0.68. Right Renal Artery: Origin: PSV 106 cm/sec, RA/AO 1.1. Proximal: PSV 115 cm/sec, RA/AO 1.2. Mid: PSV 175 cm/sec, RA/AO 1.8. Distal: PSV 69.5 cm/sec, RA/AO 0.72. Aorta PSV: 95.8 cm/sec. RRV Patent: Yes. Left Kidney: 12.7 X 5.9 X 6.2 cm. Left Segmental Artery: Upper pole: PSV 57.2 cm/sec, RI 0.93. Mid pole: PSV 31.7 cm/sec, RI 0.63. Lower pole: PSV 31.7 cm/sec, RI 0.68. Left Renal Artery: Origin: PSV 117.4 cm/sec, RA/AO 1.2. Proximal: PSV 74.8 cm/sec, RA/AO 0.8. Mid: PSV 86.9 cm/sec, RA/AO 0.9. Distal: PSV 68 cm/sec, RA/AO 0.7. LRV Patent: Yes. IMPRESSION: 1. No hemodynamically significant renal artery stenosis. Increased resistive index in the left upper and right mid and upper kidney. Significance is unclear. 2. Renal veins are patent. [facility] Referring Provider Line: [phone] SITE ID: [id number]
[2017-01-25 05:13] LABS: BASOPHILS # (AUTO) 0.1 10^3/uL (0.0-0.1); BASOPHILS % (AUTO) 1.2 %; EOSINOPHILS # (AUTO) 0.1 10^3/uL (0.0-0.7); EOSINOPHILS % (AUTO) 2.8 %; HCT - HEMATOCRIT 27.6 % (42.0-52.0); HGB - HEMOGLOBIN 9.8 g/dL (14.0-18.0); LYMPHOCYTES # (AUTO) 1.5 10^3/uL (1.5-3.5); LYMPHOCYTES % (AUTO) 32.6 %; MEAN CORPUSCULAR HEMOGLOBIN 30.6 pg (27.0-31.0); MEAN CORPUSCULAR HGB CONC 35.4 g/dL (32.0-36.0); MEAN CORPUSCULAR VOLUME 86.5 fL (80.0-94.0); MEAN PLATELET VOLUME 8.3 fL (7.4-11.4); MONOCYTES # (AUTO) 0.4 10^3/uL (0.0-1.0); MONOCYTES % (AUTO) 9.1 %; NEUTROPHILS # (AUTO) 2.4 10^3/uL (1.5-6.6); NEUTROPHILS % (AUTO) 54.3 %; RED BLOOD COUNT 3.19 10^6/uL (4.70-6.10); RED CELL DISTRIBUTION WIDTH 14.5 % (12.0-15.0); UNCORRECTED WHITE BLOOD COUNT 4.5 x10^3/uL; WHITE BLOOD COUNT 4.5 x10^3/uL (4.8-10.8)
[2017-01-25 05:26] LABS: ALBUMIN/GLOBULIN RATIO 0.9 (1.0-2.2); BILIRUBIN,TOTAL 0.3 mg/dL (0.2-1.0); CALCIUM 8.7 mg/dL (8.5-10.3); CREATININE 2.1 mg/dL (0.6-1.2); POTASSIUM 3.9 mmol/L (3.5-5.0); TOTAL PROTEIN 6.3 g/dL (6.7-8.2)
[2017-01-25] MEDS: PANTOPRAZOLE 40 MG VIAL IVP SCH (06:13)
[2017-01-25] MEDS: SODIUM CHLORIDE FLUSH 0.9% 10 ML SYRINGE IVP SCH (06:13)
[2017-01-25] MEDS: FERROUS SULFATE 325 MG TABLET PO SCH (08:39)
[2017-01-25] MEDS: METOPROLOL SUCCINATE 25 MG TABLET PO SCH (08:40)
[2017-01-25] MEDS: metOLazone 2.5 MG TABLET PO SCH (08:40)
[2017-01-25] MEDS: amLODIPine 5 MG TABLET PO SCH (08:40)
[2017-01-25] MEDS: POLYETHYLENE GLYCOL 3350 17 GM PACKET PO SCH (08:42)
--- NOTE | 2017-01-25 09:27 | DISCHARGE SUMMARY ---
Discharge Summary Admit Date: 01/22/17 Discharge Date: 01/25/17 Discharging Provider: CONRAD Ryan Condition at Discharge: Stable Discharge Disposition: 01 Home, Self Care - DIAGNOSES Admission Diagnoses: Hypertensive Emergency (I16.1) Nausea with vomiting, unspecified (R11.2) Acute kidney failure, unspecified (N17.9) Type 1 diabetes mellitus with other diabetic kidney complication (E10.29) Hyperkalemia (E87.5) Tachycardia, unspecified (R00.0) Discharge Diagnoses with Status of Each Condition: Hypertensive emergency (I16.1) Acute on chronic renal failure (N17.9) DM (diabetes mellitus) type I controlled with renal manifestation (E10.29) - HPI History of Present Illness: This is a 31-year-old male with a past medical history significance for DM1 since 10 years old on insulin Pump, HTN, chronic renal insufficiency, who present ER for evaluation of nausea, vomiting and hypertensive. Pt's alert and oriented, and generalized weakness. Pt's mainly provide the information. Pt had a regular visit on [facility] to visit his PCP, also his Air Traffic Control Operator four day ago. Pt also had two visits to his ER for hypertensive. Pt did not feel better and began to have nausea and vomiting. Pt' s vomiting was also streaked with very small blood. Pt's report this happened before when pt had an extensive vomiting. Pt use his insulin pump to control his glucose. Pt has a chronic anemia for at least one year. Pt's report he has a printing press operator for him to follow up. Pt report he has some headache, and also state it may derive from his high blood pressure. Pt denies chest pain, fever, chill, cough, shortness of breath, abdominal pain, diarrhea, dysuria, hematuria, vision changing, GI bleeding. lab test in ER reveals BUN 39, creatinine 2.3, glucose 264, lactic acid 0.6, serum ketones is negative, Potassium 5.1, HGB 8.6, HCT 24.6. BP is 210/109, HR 104. CXR is unremarkable. - ALLERGIES Allergies/Adverse Reactions: Allergies Allergy/AdvReac Type Severity Reaction Status Date / Time clindamycin Allergy Rash Verified 01/21/17 22:34 vancomycin Allergy Rash Verified 01/21/17 22:34 hydralazine AdvReac Emesis Verified 01/22/17 16:20 - MEDICATIONS Home Medications: Ambulatory Orders Medication Instructions Recorded Confirmed Imipramine [Tofranil] 50 mg PO QPM 01/22/17 01/22/17 Insulin Aspart (Vial) [NovoLOG 32 - 36 unit SUBQ DAILY 01/22/17 01/22/17 (VIAL FOR ED USE)] Lisinopril 2.5 mg PO DAILY #30 tablet 01/25/17 Metoprolol Succinate [Toprol Xl] 100 mg PO BID #30 tablet 01/25/17 amLODIPine [Norvasc] 10 mg PO DAILY #30 tablet 01/25/17 metOLazone [Zaroxolyn] 2.5 mg PO DAILY #30 tablet 01/25/17 - PHYSICAL EXAM AT DISCHARGE General Appearance: positive: No acute distress, Alert Eyes Bilateral: positive: Normal inspection, PERRL ENT: positive: ENT inspection nml, Pharynx nml, No signs of dehydration Neck: positive: Nml inspection, Thyroid nml, No JVD, Trachea midline Respiratory: positive: Chest non-tender, No respiratory distress, Breath sounds nml Cardiovascular: positive: No gallop, Tachycardia, Systolic murmur Peripheral Pulses: positive: 1+ Abdomen: positive: Non-tender, No organomegaly, Nml bowel sounds, No distention , Tenderness Back: positive: Nml inspection Skin: positive: Color nml, No rash, Warm, Dry Extremities: positive: Non-tender, Full ROM, Pedal edema (mild, status post foot /toes amputation left lower extremity.) Neurologic/Psychiatric: positive: Oriented x3, CN's nml (2-12), Motor nml, Sensation nml, Mood/affect nml Reflexes: Bicep (R): 4+, Bicep (L): 4+ - LABS Result Diagrams: 01/25/17 04:55 01/25/17 04:55 - DIAGNOSTIC IMAGING Diagnostic Imaging Results: Final report reviewed Diagnostic Imaging Results Comments: Renal artery ultrasound 01/24/17: IMPRESSION: 1. No hemodynamically significant renal artery stenosis. Increased resistive index in the left upper and right mid and upper kidney. Significance is unclear. 2. Renal veins are patent. - FOLLOW UP Follow Up: You were admitted for Hypertensive emergency. We performed a renal artery ultrasound that showed that there was no problems with the blood supply that goes to your kidneys (no hemodynamically significant renal artery stenosis), and also the blood flow back showed renal veins are patent. I spoke with Dr. Ancelmo Hinson, printing press operator who happened to be the physician inspector clip on sunglasses. We talked about possible causes of your high blood pressure. He recommended me to call back if your renal ultrasound showed any abnormalities, so an additional call was not made. He also wanted you to be on a low dose diuretic to reduce blood pressure in addition to norvasc (amlodypine) and metoprolol. He wants you to see him sometime in the next few weeks, or at least within a month. I am sending you home because you seem like you will follow the recommendations and make it to your appointments. Please continue to check your blood pressure daily for the next few days. Continue your insulin/blood glucose monitoring routine. Please see your PCP later this week as a follow up to this admission. Please take all of your new antihypertensive medications as prescribed.
--- NOTE | 2017-01-25 09:27 | Discharge Plan ---
Discharge Plan Disposition: 01 Home, Self Care Condition: Stable Prescriptions: amLODIPine [Norvasc] 10 mg PO DAILY #30 tablet Lisinopril 2.5 mg PO DAILY #30 tablet metOLazone [Zaroxolyn] 2.5 mg PO DAILY #30 tablet Metoprolol Succinate [Toprol Xl] 100 mg PO BID #30 tablet Diet: Diabetic Activity Restrictions: No Restrictions Shower Restrictions: No Driving Restrictions: No Weight Bearing: Full Weight Instruction Topics: Kidney Disease Hypertension Additional Instructions or Follow Up instructions: You were admitted for Hypertensive emergency. We performed a renal artery ultrasound that showed that there was no problems with the blood supply that goes to your kidneys (no hemodynamically significant renal artery stenosis), and also the blood flow back showed renal veins are patent. I spoke with Dr. Ancelmo Hinson, local operator who happened to be the physician correspondence specialist. We talked about possible causes of your high blood pressure. He recommended me to call back if your renal ultrasound showed any abnormalities, so an additional call was not made. He also wanted you to be on a low dose diuretic to reduce blood pressure in addition to norvasc (amlodypine) and metoprolol. He wants you to see him sometime in the next few weeks, or at least within a month. I am sending you home because you seem like you will follow the recommendations and make it to your appointments. Please continue to check your blood pressure daily for the next few days. Continue your insulin/blood glucose monitoring routine. Please see your PCP later this week as a follow up to this admission. Please take all of your new antihypertensive medications as prescribed. It was great working with you! No Smoking: If you smoke, Please STOP! Call for help.
[2017-01-25 11:43] VITALS: BP 158/102
[2017-01-25] MEDS ORDERED: amLODIPine 5 MG TABLET PO SCH (12:33)
== END 2017-01-25 13:30 | disposition home or self-care (01) | DRG 305 ==
LOC: ED 10:28 → OBS 13:47 → OBSVTOIN 01-23 18:35 → MS3 01-23 20:17
PROVIDERS: ADMIT Nurse Practitioner Gerontology; ATTEND Nurse Practitioner
DX: I16.1 Hypertensive emergency (principal); N17.9 Acute kidney failure, unspecified; K92.0 Hematemesis; I12.9 Hypertensive chronic kidney disease with stage 1 through stage 4 chronic kidney disease, or unspecified chronic kidney disease; E10.22 Type 1 diabetes mellitus with diabetic chronic kidney disease; N18.3 Chronic kidney disease, stage 3 (moderate); E10.65 Type 1 diabetes mellitus with hyperglycemia; E87.5 Hyperkalemia; E86.0 Dehydration; D64.9 Anemia, unspecified; Z96.41 Presence of insulin pump (external) (internal); Z79.899 Other long term (current) drug therapy
CPT/HCPCS: 36415; 36430; 36600; 71010; 76770; 80048; 80053; 81001; 81003; 82009; 82550; 82607; 82728; 82803; 83036; 83540; 83605; 83615; 83735; 84100; 84132; 84466; 85014; 85018; 85025; 85044; 86850; 86900; 86901; 86920; 87086; 87640; 93005; 93975; 96361; 96372; 96374; 96375; 96376; 99284; 99285

== ENCOUNTER 2017-02-01 19:31 | Emergency (ER) | payer MEDICAID ==
[2017-02-01 20:24] LABS: BASOPHILS # (AUTO) 0.1 10^3/uL (0.0-0.1); BASOPHILS % (AUTO) 1.3 %; EOSINOPHILS # (AUTO) 0.1 10^3/uL (0.0-0.7); HCT - HEMATOCRIT 29.4 % (42.0-52.0); HGB - HEMOGLOBIN 10.1 g/dL (14.0-18.0); LYMPHOCYTES # (AUTO) 1.2 10^3/uL (1.5-3.5); LYMPHOCYTES % (AUTO) 28.6 %; MEAN CORPUSCULAR HEMOGLOBIN 30.1 pg (27.0-31.0); MEAN CORPUSCULAR HGB CONC 34.5 g/dL (32.0-36.0); MEAN CORPUSCULAR VOLUME 87.2 fL (80.0-94.0); MONOCYTES # (AUTO) 0.3 10^3/uL (0.0-1.0); NEUTROPHILS # (AUTO) 2.6 10^3/uL (1.5-6.6); NEUTROPHILS % (AUTO) 60.1 %; RED BLOOD COUNT 3.37 10^6/uL (4.70-6.10); UNCORRECTED WHITE BLOOD COUNT 4.3 x10^3/uL; WHITE BLOOD COUNT 4.3 x10^3/uL (4.8-10.8)
[2017-02-01] MEDS ORDERED: PROPARACAINE 0.5% OPHTH DROPS 15 ML ONE (20:26)
[2017-02-01] MEDS ORDERED: MORPHINE 10 MG/ML VIAL IVP STA (20:30)
[2017-02-01] MEDS ORDERED: ACYCLOVIR INJ 800 MG in SODIUM CHLORIDE 0.9% 250 ML IV STA (20:30)
[2017-02-01 20:34] LABS: ALBUMIN/GLOBULIN RATIO 0.9 (1.0-2.2); BILIRUBIN,TOTAL 0.6 mg/dL (0.2-1.0); CALCIUM 9.1 mg/dL (8.5-10.3); CREATININE 2.3 mg/dL (0.6-1.2); TOTAL PROTEIN 7.2 g/dL (6.7-8.2)
--- NOTE | 2017-02-01 20:34 | ED Physician Documentation ---
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 He has a history of chronic renal insufficiency was admitted here on January 22 with hypertensive emergency and acute kidney injury with a creatinine of about 2.1. He was placed on antihypertensive medications including lisinopril, metoprolol, amlodipine, and metolazone. He was discharged on the and has an appointment with the county or city auditor on February 08. He comes in tonight because he had a left-sided headache that was associated with left eye itching. He had not noted any visual deficit. He vomited with this. He noted his blood pressure went up at home and was as high as 180/100.) Review of Systems Ten Systems: 10 systems reviewed and negative Constitutional: denies: Fever, Chills Eyes: reports: Irritation Ears: denies: Loss of hearing, Ear pain Nose: denies: Rhinorrhea / runny nose, Congestion Throat: denies: Sore throat PD PAST MEDICAL HISTORY - Past Medical History Cardiovascular: Hypertension Endocrine/Autoimmune: Type 1 diabetes : Renal insuffiency - Present Medications Home Medications: Ambulatory Orders Medication Instructions Recorded Confirmed Imipramine [Tofranil] 50 mg PO QPM 01/22/17 02/01/17 Insulin Aspart (Vial) [NovoLOG 32 - 36 unit SUBQ DAILY 01/22/17 02/01/17 (VIAL FOR ED USE)] Lisinopril 2.5 mg PO DAILY #30 tablet 01/25/17 02/01/17 Metoprolol Succinate [Toprol Xl] 100 mg PO BID #30 tablet 01/25/17 02/01/17 amLODIPine [Norvasc] 10 mg PO DAILY #30 tablet 01/25/17 02/01/17 metOLazone [Zaroxolyn] 2.5 mg PO DAILY #30 tablet 01/25/17 02/01/17 - Allergies Allergies/Adverse Reactions: Allergies Allergy/AdvReac Type Severity Reaction Status Date / Time clindamycin Allergy Rash Verified 02/01/17 19:51 vancomycin Allergy Rash Verified 02/01/17 19:51 hydralazine AdvReac Emesis Verified 02/01/17 19:51 - Social History Does the pt smoke?: No Smoking Status: Never smoker Does the pt drink ETOH?: Yes Does the pt have substance abuse?: Yes - Immunizations Immunizations are current?: Yes - POLST Patient has POLST: No PD ED PE NORMAL - Vitals Vital signs reviewed: Yes - General General: Alert and oriented X 3, No acute distress - HEENT HEENT: Other (Very mild edema of the left upper eyelid, grossly on examination he obviously has some lesions of the left cornea which have minimal to no fluorescein uptake. Simba-Pen was 16 on both sides. I do not Appreciate any shingles rash over the left side of the head.) - Neck Neck: Supple, no meningeal sign, No bony TTP - Cardiac Cardiac: RRR, No murmur - Respiratory Respiratory: No respiratory distress, Clear bilaterally - Abdomen Abdomen: Non tender - Neuro Neuro: Alert and oriented X 3 Eye Opening: Spontaneous Motor: Obeys Commands Verbal: Oriented GCS Score: 15 - Psych Psych: Normal mood, Normal affect Results - Vitals Vitals: Vital Signs - 24 hr 02/01/17 02/01/17 02/01/17 19:48 21:00 21:40 Temperature 36.4 C L Heart Rate 83 70 74 Respiratory 18 18 18 Rate Blood Pressure 156/105 H 191/111 H 176/113 H O2 Saturation 97 100 100 02/01/17 02/01/17 02/01/17 22:06 22:14 22:19 Temperature Heart Rate 76 76 79 Respiratory 16 14 13 Rate Blood Pressure 172/108 H 161/106 H 135/92 H O2 Saturation 100 100 100 02/01/17 22:27 Temperature Heart Rate 79 Respiratory 15 Rate Blood Pressure 141/89 H O2 Saturation 99 Oxygen O2 Source Room air - Labs Labs: Laboratory Tests 02/01/17 02/01/17 02/01/17 20:05 20:05 20:05 WBC 4.3 L RBC 3.37 L Hgb 10.1 L Hct 29.4 L MCV 87.2 MCH 30.1 MCHC 34.5 RDW 14.0 Plt Count 184 MPV 8.0 Neut # 2.6 Lymph # 1.2 L [place] # 0.3 Eos # 0.1 Baso # 0.1 Absolute Nucleated RBC 0.00 Nucleated RBC % 0.0 Sodium 141 Potassium 4.0 Chloride 106 Carbon Dioxide 26 Anion Gap 9.0 BUN 47 H Creatinine 2.3 H Estimated GFR (MDRD) 34 L Glucose 72 Calcium 9.1 Total Bilirubin 0.6 AST 24 ALT 36 Alkaline Phosphatase 64 Troponin I < 0.04 Total Protein 7.2 Albumin 3.4 Globulin 3.8 Albumin/Globulin Ratio 0.9 L Lipase 22 PD MEDICAL DECISION MAKING - ED course ED course: 32-year-old with type 1 diabetes and renal insufficiency who presents with an acute left-sided headache and elevated blood pressures. On examination he did have some lesions on the cornea which concerned me. There is no fluorescein uptake, but I did go ahead and give him IV acyclovir during a workup which was otherwise negative for acute pathology. His blood pressure improved after dose of labetalol here. I discussed the case with plan to transfer with the manager of digital at the [facility], as Dr. Frances. Given that the lesions on the left eye did not take up floor seen she was not concerned for herpetic infection of the eye and felt that based on my description the lesions were likely more chronic. She recommended outpatient follow-up. There is no manager of digital internal combustion engine assembler here, but I recommend he call Dr. Weinberg tomorrow for expedited follow-up and I will also give him my number in case he is having issues. Departure - Departure Disposition: 01 Home, Self Care Clinical Impression: Acute kidney injury, Benign lesion of left cornea HTN (hypertension) Qualifiers: Hypertension type: essential hypertension Qualified Code(s): I10 - Essential ( primary) hypertension Type 1 diabetes mellitus Qualifiers: Diabetes mellitus complication status: without complication Qualified Code(s): E10.9 - Type 1 diabetes mellitus without complications Headache Qualifiers: Headache type: unspecified Headache chronicity pattern: acute headache Intractability: not intractable Qualified Code(s): R51 - Headache Condition: Good Record reviewed to determine appropriate education?: Yes Instructions: ED Cephalgia Unspecified Follow-Up: Tiago Weinberg MD [Provider Admit Priv/Credential] - Comments: Use the eye antibiotic 5 times a day until you follow-up. Call Dr. Weinberg's office first thing tomorrow. If you are unable to get follow-up in the next few days with him, call me tomorrow morning at [phone] and we will work something out together.
[2017-02-01] MEDS ORDERED: MORPHINE 10 MG/ML VIAL ONE (20:49)
--- NOTE | 2017-02-01 21:34 | CT Preliminary Report ---
Exam: CT HEAD W/O IMPRESSION: Normal head CT. [facility] SITE ID: [id number]
--- NOTE | 2017-02-01 21:36 | CT Report ---
EXAM: CT HEAD EXAM DATE: 02/01/2017 09:16 PM. CLINICAL HISTORY: Left headache. COMPARISON: None. TECHNIQUE: Multiaxial CT images were obtained from the foramen magnum to the vertex. Reformats: Coron al. IV contrast: None. In accordance with CT protocol optimization, one or more of the following dose reduction techniques w ere utilized for this exam: automated exposure control, adjustment of mA and/or KV based on patient s ize, or use of iterative reconstructive technique. FINDINGS: Parenchyma: No intraparenchymal hemorrhage. No evidence of mass, midline shift, or CT findings of inf arction. Ivey-white differentiation is distinct. Extraaxial Spaces: Normal for age. No subdural or epidural collections. Ventricles: Normal in size and position. Sinuses and Orbits: Imaged paranasal sinuses, orbits, and mastoids show no significant abnormality. Bones: Unremarkable. Other: None. IMPRESSION: Normal head CT. [facility] Referring Provider Line: [phone] SITE ID: [id number]
[2017-02-01] MEDS ORDERED: LABETALOL 20 MG/4 ML SYRINGE IVP STA (21:59)
[2017-02-01] MEDS ORDERED: LABETALOL 20 MG/4 ML SYRINGE IVP ONE (22:13)
[2017-02-01 22:28] VITALS: BP 141/89
[2017-02-01] MEDS ORDERED: ERYTHROMYCIN OPHTH OINT 1 GM TUBE LEFTEYE STA (22:35)
[2017-02-01] MEDS ORDERED: ERYTHROMYCIN OPHTH OINT 1 GM TUBE ONE (22:45)
== END 2017-02-01 22:57 | disposition home or self-care (01) ==
LOC: ED 19:31
DX: I12.9 Hypertensive chronic kidney disease with stage 1 through stage 4 chronic kidney disease, or unspecified chronic kidney disease (principal); E10.22 Type 1 diabetes mellitus with diabetic chronic kidney disease; N18.9 Chronic kidney disease, unspecified; N17.9 Acute kidney failure, unspecified; H18.892 Other specified disorders of cornea, left eye; R51 Headache
CPT/HCPCS: 36415; 70450; 80053; 83690; 84484; 85025; 93005; 96365; 96366; 96375; 99284; J0133; J3490

== ENCOUNTER 2017-04-04 08:19 | Inpatient (IN) | payer MEDICAID, OTHER ==
[2017-04-04] MEDS ORDERED: SODIUM CHLORIDE 0.9% 1,000 ML IV ONE ×2 (08:39→10:02)
--- NOTE | 2017-04-04 08:43 | ED Physician Documentation ---
PD HPI URI - Stated complaint Stated Complaint: FLU LIKE SX - Chief complaint Chief Complaint: Fever - History obtained from History obtained from: Patient - History of Present Illness Timing - onset: How many days ago (4) Timing duration: Days (4) Timing details: Gradual onset, Still present, Waxing and waning Associated symptoms: Fever, Chills, Sweats, Nasal congestion, Rhinorrhea, Productive cough, NVD (post tussive vomiting.) Contributing factors: Sick contact Improves by: Rest, Medication Similar symptoms before: Diagnosis (influenza) Recently seen: Not recently seen - Additional information Additional information: 32-year-old male type I diabetic with history of hypertension and noncompliance has developed cough and congestion about 4 days ago. He is having some coughing paroxysms symptoms and has vomited and his blood sugars have been running in the 280 range. He is feeling sicker and has come to the emergency department. He has not been able to take his medications. States that he does not take his blood pressure medicines because he does not like the way it makes him feel. Review of Systems Constitutional: reports: Fever, Myalgias, Fatigue Eyes: denies: Decreased vision Ears: denies: Ear pain Nose: reports: Rhinorrhea / runny nose, Congestion Throat: reports: Sore throat Cardiac: denies: Chest pain / pressure, Palpitations Respiratory: reports: Cough. denies: Dyspnea GI: reports: Vomiting. denies: Abdominal Pain, Diarrhea : denies: Dysuria, Frequency Skin: denies: Rash Musculoskeletal: denies: Neck pain, Back pain, Extremity pain Neurologic: reports: Generalized weakness. denies: Focal weakness, Numbness PD PAST MEDICAL HISTORY - Past Medical History Cardiovascular: Hypertension Endocrine/Autoimmune: Type 1 diabetes : Renal insuffiency - Present Medications Home Medications: Ambulatory Orders Medication Instructions Recorded Confirmed Imipramine [Tofranil] 50 mg PO QPM 01/22/17 02/01/17 Insulin Aspart (Vial) [NovoLOG 32 - 36 unit SUBQ DAILY 01/22/17 02/01/17 (VIAL FOR ED USE)] Lisinopril 2.5 mg PO DAILY #30 tablet 01/25/17 02/01/17 Metoprolol Succinate [Toprol Xl] 100 mg PO BID #30 tablet 01/25/17 02/01/17 metOLazone [Zaroxolyn] 2.5 mg PO DAILY #30 tablet 01/25/17 02/01/17 - Allergies Allergies/Adverse Reactions: Allergies Allergy/AdvReac Type Severity Reaction Status Date / Time clindamycin Allergy Rash Verified 04/04/17 08:25 vancomycin Allergy Rash Verified 04/04/17 08:25 hydralazine AdvReac Emesis Verified 04/04/17 08:25 - Social History Does the pt smoke?: No Smoking Status: Never smoker Does the pt drink ETOH?: Yes Does the pt have substance abuse?: Yes - Immunizations Immunizations are current?: Yes - POLST Patient has POLST: No PD ED PE NORMAL - Vitals Vital signs reviewed: Yes (tachy and hypertensive ) - General General: Well developed/nourished, Other (The patient is lying in the position and is withdrawn. ) - HEENT HEENT: Atraumatic, PERRL, EOMI, Ears normal, Other (minimal inflamation in the pharynx with honorio mucous membranes) - Neck Neck: Supple, no meningeal sign, No bony TTP - Cardiac Cardiac: No murmur, Other (tachy to 110) - Respiratory Respiratory: No respiratory distress, Clear bilaterally - Abdomen Abdomen: Soft, Non tender - Back Back: No CVA TTP, No spinal TTP - Derm Derm: Normal color, Warm and dry, No rash - Extremities Extremities: No deformity, No edema - Neuro Neuro: No motor deficit, No sensory deficit Eye Opening: Spontaneous Motor: Obeys Commands Verbal: Oriented GCS Score: 15 - Psych Psych: Normal affect, Other Results - Vitals Vitals: Vital Signs - 24 hr 04/04/17 04/04/17 04/04/17 08:22 09:04 10:00 Temperature 37.2 C 37.9 C H 38.1 C H Heart Rate 109 H Respiratory 16 Rate Blood Pressure 113/99 H O2 Saturation 100 04/04/17 04/04/17 04/04/17 11:00 12:10 12:43 Temperature 37.8 C H 37.2 C Heart Rate 88 88 Respiratory 18 20 Rate Blood Pressure 133/98 H 152/85 H O2 Saturation 97 Oxygen O2 Source Room air - Labs Labs: Laboratory Tests 04/04/17 04/04/17 04/04/17 08:49 08:50 08:50 WBC 7.7 RBC 2.66 L Hgb 8.3 L Hct 22.9 L MCV 86.1 MCH 31.3 H MCHC 36.3 H RDW 14.2 Plt Count 115 L MPV 9.0 Neut # 6.6 Lymph # 0.6 L [place] # 0.5 Eos # 0.0 Baso # 0.0 Absolute Nucleated RBC 0.00 Nucleated RBC % 0.0 VBG pH VBG pCO2 VBG pO2 VBG HCO3 VBG Total CO2 VBG O2 Saturation VBG Base Excess Sodium 135 Potassium 3.8 Chloride 100 L Carbon Dioxide 21 Anion Gap 14.0 H BUN 64 H Creatinine 4.8 H Estimated GFR (MDRD) 14 L Glucose 198 H POC Whole Bld Glucose 198 H Lactic Acid Calcium 8.6 Total Bilirubin 0.6 AST 29 ALT 30 Alkaline Phosphatase 68 Troponin I Total Protein 7.2 Albumin 3.2 Globulin 4.0 Albumin/Globulin Ratio 0.8 L Lipase 18 L Serum Ketones Influenza A (Rapid) Influenza B (Rapid) Influenza Types A,B Ag Group A Strep Rapid 04/04/17 04/04/17 04/04/17 08:50 08:50 10:10 WBC RBC Hgb Hct MCV MCH MCHC RDW Plt Count MPV Neut # Lymph # [place] # Eos # Baso # Absolute Nucleated RBC Nucleated RBC % VBG pH VBG pCO2 VBG pO2 VBG HCO3 VBG Total CO2 VBG O2 Saturation VBG Base Excess Sodium Potassium Chloride Carbon Dioxide Anion Gap BUN Creatinine Estimated GFR (MDRD) Glucose POC Whole Bld Glucose Lactic Acid 1.5 Calcium Total Bilirubin AST ALT Alkaline Phosphatase Troponin I < 0.04 Total Protein Albumin Globulin Albumin/Globulin Ratio Lipase Serum Ketones Influenza A (Rapid) Negative Influenza B (Rapid) Negative Influenza Types A,B Ag - Group A Strep Rapid 04/04/17 04/04/17 04/04/17 10:24 10:24 12:27 WBC RBC Hgb Hct MCV MCH MCHC RDW Plt Count MPV Neut # Lymph # [place] # Eos # Baso # Absolute Nucleated RBC Nucleated RBC % VBG pH 7.401 VBG pCO2 34.1 L VBG pO2 31.1 VBG HCO3 20.7 L VBG Total CO2 21.7 L VBG O2 Saturation 62.9 VBG Base Excess -3.6 L Sodium Potassium Chloride Carbon Dioxide Anion Gap BUN Creatinine Estimated GFR (MDRD) Glucose POC Whole Bld Glucose Lactic Acid Calcium Total Bilirubin AST ALT Alkaline Phosphatase Troponin I Total Protein Albumin Globulin Albumin/Globulin Ratio Lipase Serum Ketones NEGATIVE Influenza A (Rapid) Influenza B (Rapid) Influenza Types A,B Ag Group A Strep Rapid Negative Procedures - IVC sono (time) 0830 Bedside IVC sono: IVC measures (cm) (0.78), IVC collapsed c insp (cm) (complete) , Significant dehydration (estimated 2.5 liters deficit) PD MEDICAL DECISION MAKING - ED course Complexity details: considered differential, d/w patient ED course: 32-year-old type I diabetic male who is been sick for 4 days with cough congestion and fever may have the flu. He is dehydrated and IV is established blood and flu swab obtained and fluid is begun. He is found to be significantly dehydrated and anemic with acute on chronic renal failure. Influenza swab is negative. Departure - Departure Disposition: ED Place in Observation Clinical Impression: Dehydration Type 1 diabetes mellitus Qualifiers: Diabetes mellitus complication status: with unspecified complications Qualified Code(s): E10.8 - Type 1 diabetes mellitus with unspecified complications [id number] renal failure Qualifiers: Acute renal failure type: unspecified Chronic kidney disease stage: stage 4 ( severe) Qualified Code(s): N17.9 - Acute kidney failure, unspecified
[2017-04-04 09:07] LABS: BASOPHILS % (AUTO) 0.5 %; EOSINOPHILS % (AUTO) 0.2 %; HGB - HEMOGLOBIN 8.3 g/dL (14.0-18.0); LYMPHOCYTES # (AUTO) 0.6 10^3/uL (1.5-3.5); LYMPHOCYTES % (AUTO) 7.2 %; MEAN CORPUSCULAR HEMOGLOBIN 31.3 pg (27.0-31.0); MEAN CORPUSCULAR HGB CONC 36.3 g/dL (32.0-36.0); MEAN CORPUSCULAR VOLUME 86.1 fL (80.0-94.0); MONOCYTES # (AUTO) 0.5 10^3/uL (0.0-1.0); MONOCYTES % (AUTO) 6.7 %; NEUTROPHILS # (AUTO) 6.6 10^3/uL (1.5-6.6); NEUTROPHILS % (AUTO) 85.4 %; PLT - PLATELET COUNT 115 10^3/uL (130-450); RED BLOOD COUNT 2.66 10^6/uL (4.70-6.10); RED CELL DISTRIBUTION WIDTH 14.2 % (12.0-15.0); WHITE BLOOD COUNT 7.7 x10^3/uL (4.8-10.8)
[2017-04-04 09:21] LABS: ALBUMIN 3.2 g/dL (3.2-5.5); ALBUMIN/GLOBULIN RATIO 0.8 (1.0-2.2); BILIRUBIN,TOTAL 0.6 mg/dL (0.2-1.0); CALCIUM 8.6 mg/dL (8.5-10.3); CREATININE 4.8 mg/dL (0.6-1.2); TOTAL PROTEIN 7.2 g/dL (6.7-8.2)
[2017-04-04] MEDS ORDERED: ACETAMINOPHEN 325 MG TABLET PO STA (10:00)
[2017-04-04 10:29] LABS: VBG BASE EXCESS -3.6 mmol/L (-2 - +2); VBG PCO2 34.1 mmHg (41-51); VBG PH 7.401 (7.31-7.41); VBG PO2 31.1 mmHg (25-47); VBG TOTAL CO2 21.7 mmol/L (24-29)
[2017-04-04] MEDS ORDERED: PROCHLORPERAZINE 10 MG/2 ML VIAL IVP PRN (13:22)
[2017-04-04] MEDS ORDERED: MORPHINE 2 MG/ML CARPUJECT IVP PRN (13:22)
[2017-04-04] MEDS ORDERED: ACETAMINOPHEN 325 MG TABLET PO PRN (13:22)
[2017-04-04] MEDS ORDERED: SODIUM CHLORIDE FLUSH 0.9% 10 ML SYRINGE IVP PRN (13:22)
[2017-04-04] MEDS ORDERED: ZOLPIDEM 5 MG TABLET PO PRN (13:22)
[2017-04-04 14:00] LABS: HB2 TOTAL 8.7 g/dL; HEMOGLOBIN A1C 0.63 g/dL; HEMOGLOBIN A1C % 8.8 % (4.6-6.2)
[2017-04-04] MEDS: SODIUM CHLORIDE 0.9% 1,000 ML IV SCH (14:52)
[2017-04-04] MEDS ORDERED: guaiFENesin/CODEINE 5 ML UDC PO PRN (15:14)
[2017-04-04] MEDS: INSULIN ASPART 300 UNIT/3 ML PEN SUBQ SCH ×2 (17:11→21:53)
[2017-04-04] MEDS ORDERED: guaiFENesin 600 MG TABLET PO SCH (20:00)
[2017-04-04 20:19] LABS: BILIRUBIN,URINE NEGATIVE (NEGATIVE); GLUCOSE, URINE (UA) 250 mg/dL (NEGATIVE); KETONES,URINE (UA) NEGATIVE (NEGATIVE); LEUKOCYTE ESTERASE, URINE NEGATIVE (NEGATIVE); NITRITE,URINE NEGATIVE (NEGATIVE); OCCULT BLOOD,URINE MODERATE (NEGATIVE); PROTEIN,URINE >=300 mg/dL (NEGATIVE); UROBILINOGEN,URINE 0.2 (NORMAL) E.U./dL (NORMAL)
[2017-04-04 20:36] LABS: CLARITY,URINE HAZY (CLEAR)
[2017-04-04 20:38] LABS: BACTERIA,URINE Few /HPF (None Seen); SQUAMOUS EPITHELIAL CELL,UR FEW Squamous (<= Few)
[2017-04-04 20:39] LABS: AMORPHOUS SEDIMENT,UR Few /LPF; CASTS, URINE 3-5 Fine Granular /LPF
[2017-04-04] MEDS: IMIPRAMINE 25 MG TABLET PO SCH (21:38)
[2017-04-04] MEDS: METOPROLOL SUCCINATE 50 MG TABLET PO SCH (21:38)
[2017-04-04] MEDS: SODIUM CHLORIDE FLUSH 0.9% 10 ML SYRINGE IVP SCH (23:36)
[2017-04-05] MEDS: SODIUM CHLORIDE 0.9% 1,000 ML IV SCH ×3 (00:21→21:38)
[2017-04-05] MEDS: guaiFENesin/CODEINE 5 ML UDC PO SCH ×4 (00:21→18:25)
[2017-04-05] MEDS: SODIUM CHLORIDE FLUSH 0.9% 10 ML SYRINGE IVP SCH ×3 (03:58→20:56)
[2017-04-05 06:08] LABS: CALCIUM 8.1 mg/dL (8.5-10.3); CREATININE 4.4 mg/dL (0.6-1.2)
[2017-04-05 06:11] LABS: BASOPHILS % (AUTO) 0.2 %; EOSINOPHILS % (AUTO) 0.7 %; LYMPHOCYTES # (AUTO) 1.4 10^3/uL (1.5-3.5); LYMPHOCYTES % (AUTO) 29.1 %; MEAN CORPUSCULAR HEMOGLOBIN 30.2 pg (27.0-31.0); MEAN CORPUSCULAR HGB CONC 33.8 g/dL (32.0-36.0); MEAN CORPUSCULAR VOLUME 89.5 fL (80.0-94.0); MEAN PLATELET VOLUME 9.7 fL (7.4-11.4); MONOCYTES # (AUTO) 0.4 10^3/uL (0.0-1.0); MONOCYTES % (AUTO) 7.8 %; NEUTROPHILS # (AUTO) 3.1 10^3/uL (1.5-6.6); NEUTROPHILS % (AUTO) 62.2 %; PLT - PLATELET COUNT 98 10^3/uL (130-450); RED BLOOD COUNT 2.13 10^6/uL (4.70-6.10); RED CELL DISTRIBUTION WIDTH 14.5 % (12.0-15.0)
[2017-04-05 06:17] LABS: HGB - HEMOGLOBIN 6.4 g/dL (14.0-18.0)
[2017-04-05 06:58] LABS: HGB - HEMOGLOBIN 6.6 g/dL (14.0-18.0)
[2017-04-05] MEDS: INSULIN ASPART 300 UNIT/3 ML PEN SUBQ SCH ×4 (08:22→20:48)
[2017-04-05] MEDS ORDERED: POLYETHYLENE GLYCOL 3350 17 GM PACKET PO SCH (09:00)
[2017-04-05] MEDS: METOPROLOL SUCCINATE 50 MG TABLET PO SCH ×2 (10:54→20:55)
[2017-04-05] MEDS: POLYETHYLENE GLYCOL 3350 17 GM PACKET PO SCH (10:54)
[2017-04-05] MEDS: FAMOTIDINE 20 MG TABLET PO SCH (10:55)
--- NOTE | 2017-04-05 17:03 | PROVIDER PROGRESS NOTE ---
Assessment/Plan - Problem List (1) [id number] renal failure Qualifiers: Acute renal failure type: unspecified Chronic kidney disease stage: stage 3 (moderate) Qualified Code(s): N17.9 - Acute kidney failure, unspecified; N18.3 - Chronic kidney disease, stage 3 (moderate); N18.3 - Chronic kidney disease, stage 3 (moderate) Assessment/Plan: Slow daily improvement. Continue hydration iv and watch daily labs. (2) Dehydration Assessment/Plan: Continued improvement clinically. (3) Type 1 diabetes mellitus Qualifiers: Diabetes mellitus complication status: with unspecified complications Qualified Code(s): E10.8 - Type 1 diabetes mellitus with unspecified complications Assessment/Plan: Stable as dehydration and URI improving. 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 Continue to follow H/H and await guaic and other W/O for etiology. (5) URI (upper respiratory infection) Assessment/Plan: Less cough andd hoarseness. No SOB complaint Continue symptomatic treatment. - Current Meds Current Meds: Current Medications Generic Name Dose Route Start Last Admin Trade Name Freq PRN Reason Stop Dose Admin Famotidine 20 mg 04/05/17 09:00 04/05/17 10:55 Pepcid PO 20 mg DAILY MARY Administration Guaifenesin/Codeine Phosphate 5 ml 04/05/17 00:00 04/05/17 12:02 Robitussin Ac PO 5 ml Q6HR MARY Administration Sodium Chloride 1,000 mls @ 100 mls/hr 04/04/17 14:00 04/05/17 10:26 Normal Saline 0.9% IV Not Given .Q10H MARY Imipramine HCl 50 mg 04/04/17 21:00 04/04/17 21:38 Tofranil PO 50 mg QPM MARY Administration Insulin Aspart 1 - 5 unit 04/04/17 17:00 04/05/17 16:55 Novolog SUBQ Not Given 0800,1200,1700,2100 [facility] Protocol Metoprolol Succinate 100 mg 04/04/17 21:00 04/05/17 10:54 Toprol Xl PO 100 mg BID MARY Administration Polyethylene Glycol 17 gm 04/05/17 11:30 04/05/17 10:54 Miralax PO 17 gm DAILY MARY Administration Sodium Chloride 10 ml 04/04/17 13:22 04/05/17 13:10 Normal Saline Flush 0.9% IVP 10 ml PRN PRN Administration NEEDED PER PROVIDER ORDERS Sodium Chloride 10 ml 04/04/17 14:00 04/05/17 13:53 Normal Saline Flush 0.9% IVP 10 ml Q8HR MARY Administration - Lab Result Fish Bone Diagrams: 04/08/17 08:34 04/08/17 08:34 - Additional Planning My Orders: My Active Orders 04/04/17 17:00 Insulin Aspart [NovoLOG] 1 - 5 unit SUBQ 0800,1200,1700,2100 04/04/17 21:00 Imipramine [Tofranil] 50 mg PO QPM Metoprolol Succinate [Toprol Xl] 100 mg PO BID 04/05/17 RBC, LEUKOREDUCED Routine 04/05/17 00:00 guaiFENesin/CODEINE [Robitussin AC] 5 ml PO Q6HR 04/05/17 07:55 Transfuse RBCs Leukoreduced [RC] .ONCE 04/05/17 10:18 Admit \ Transfer \ Status [RC] .ONCE 04/05/17 11:30 Polyethylene Glycol 3350 [Miralax] 17 gm PO DAILY 04/05/17 18:00 HEMOGLOBIN AND HEMATOCRIT [HEME] Timed 04/06/17 05:00 BMP - BASIC METABOLIC PANEL [CHEM] DAILYLAB Subjective - Subjective Patient Reports: Resting Comfortably Objective Vital Signs: Vital Signs - 24 hr 04/04/17 04/05/17 04/05/17 21:32 00:22 05:21 Temperature 36.9 C 37.0 C 36.5 C Heart Rate Heart Rate [ 90 75 70 Brachial] Respiratory 18 18 18 Rate Blood Pressure Blood Pressure 173/95 H 127/78 114/58 L [Left Brachial artery] O2 Saturation 100 98 100 04/05/17 04/05/17 04/05/17 07:15 10:18 10:35 Temperature 36.9 C 36.6 C 36.5 C Heart Rate 75 74 Heart Rate [ 72 Brachial] Respiratory 17 16 18 Rate Blood Pressure 126/79 139/93 H Blood Pressure 115/73 [Left Brachial artery] O2 Saturation 100 04/05/17 04/05/17 04/05/17 12:52 13:25 13:46 Temperature 36.7 C 36.7 C 36.7 C Heart Rate 71 71 Heart Rate [ 74 Brachial] Respiratory 17 17 18 Rate Blood Pressure 131/87 H 131/82 H Blood Pressure 131/87 H [Left Brachial artery] O2 Saturation 99 04/05/17 04/05/17 04/05/17 14:07 15:48 16:36 Temperature 36.7 C 36.4 C L 36.9 C Heart Rate 71 70 Heart Rate [ 69 Brachial] Respiratory 18 18 16 Rate Blood Pressure 136/90 H 146/98 H Blood Pressure 168/109 H [Left Brachial artery] O2 Saturation 100 Oxygen O2 Source Room air I&O (Last 24 Hrs): Intake and Output Totals x24h 04/03/17 04/04/17 04/05/17 23:59 23:59 23:59 Intake Total 360 3388.333 Balance 360 3388.333 General: Alert HEENT: Mucous membr. moist/pink, Other (Still hoarseness.) Neck: Supple, No JVD Cardiovascular: Regular rate, No murmurs Respiratory: No respiratory distress Abdomen: Soft Extremities: Other (L toes amputated. No leg edema.) - Results Results: Laboratory Results WBC 5.0 x10^3/uL (4.8-10.8) 04/05/17 05:19 RBC 2.13 10^6/uL (4.70-6.10) L 04/05/17 05:19 Hgb 6.6 g/dL (14.0-18.0) L* 04/05/17 06:46 Hct 19.1 % (42.0-52.0) L* 04/05/17 06:46 MCV 89.5 fL (80.0-94.0) 04/05/17 05:19 MCH 30.2 pg (27.0-31.0) 04/05/17 05:19 MCHC 33.8 g/dL (32.0-36.0) 04/05/17 05:19 RDW 14.5 % (12.0-15.0) 04/05/17 05:19 Plt Count 98 10^3/uL (130-450) L 04/05/17 05:19 MPV 9.7 fL (7.4-11.4) 04/05/17 05:19 Neut # 3.1 10^3/uL (1.5-6.6) 04/05/17 05:19 Lymph # 1.4 10^3/uL (1.5-3.5) L 04/05/17 05:19 [place] # 0.4 10^3/uL (0.0-1.0) 04/05/17 05:19 Eos # 0.0 10^3/uL (0.0-0.7) 04/05/17 05:19 Baso # 0.0 10^3/uL (0.0-0.1) 04/05/17 05:19 Absolute Nucleated RBC 0.00 x10^3/uL 04/05/17 05:19 Nucleated RBC % 0.0 /100WBC 04/05/17 05:19 VBG pH 7.401 (7.31-7.41) 04/04/17 10:24 VBG pCO2 34.1 mmHg (41-51) L 04/04/17 10:24 VBG pO2 31.1 mmHg (25-47) 04/04/17 10:24 VBG HCO3 20.7 mmol/L (23-28) L 04/04/17 10:24 VBG Total CO2 21.7 mmol/L (24-29) L 04/04/17 10:24 VBG O2 Saturation 62.9 % (60-80) 04/04/17 10:24 VBG Base Excess -3.6 mmol/L (-2 - +2) L 04/04/17 10:24 Sodium 138 mmol/L (135-145) 04/05/17 05:19 Potassium 4.2 mmol/L (3.5-5.0) 04/05/17 05:19 Chloride 107 mmol/L (101-111) 04/05/17 05:19 Carbon Dioxide 21 mmol/L (21-32) 04/05/17 05:19 Anion Gap 10.0 (6-13) 04/05/17 05:19 BUN 59 mg/dL (6-20) H 04/05/17 05:19 Creatinine 4.4 mg/dL (0.6-1.2) H 04/05/17 05:19 Estimated GFR (MDRD) 16 (>89) L 04/05/17 05:19 Glucose 106 mg/dL (70-100) H 04/05/17 05:19 POC Whole Bld Glucose 62 mg/dL (70 - 100) L 04/05/17 16:35 Glycated Hemoglobin 8.8 % (4.6-6.2) H 04/04/17 08:50 Estim Average Glucose 206 (70-100) H 04/04/17 08:50 Lactic Acid 1.5 mmol/L (0.5-2.2) 04/04/17 08:50 Calcium 8.1 mg/dL (8.5-10.3) L 04/05/17 05:19 Magnesium 1.8 mg/dL (1.7-2.8) 04/04/17 13:43 Total Bilirubin 0.6 mg/dL (0.2-1.0) 04/04/17 08:50 AST 29 IU/L (10-42) 04/04/17 08:50 ALT 30 IU/L (10-60) 04/04/17 08:50 Alkaline Phosphatase 68 IU/L (42-121) 04/04/17 08:50 Troponin I < 0.04 ng/mL (<0.49) 04/04/17 08:50 Total Protein 7.2 g/dL (6.7-8.2) 04/04/17 08:50 Albumin 3.2 g/dL (3.2-5.5) 04/04/17 08:50 Globulin 4.0 g/dL (2.1-4.2) 04/04/17 08:50 Albumin/Globulin Ratio 0.8 (1.0-2.2) L 04/04/17 08:50 Lipase 18 U/L (22-51) L 04/04/17 08:50 Urine Color YELLOW 04/04/17 19:45 Urine Clarity HAZY (CLEAR) 04/04/17 19:45 Urine pH 6.0 PH (5.0-7.5) 04/04/17 19:45 Ur Specific [place] 1.025 (1.002-1.030) 04/04/17 19:45 Urine Protein >=300 mg/dL (NEGATIVE) 04/04/17 19:45 Urine Glucose (UA) 250 mg/dL (NEGATIVE) H 04/04/17 19:45 Urine Ketones NEGATIVE mg/dL (NEGATIVE) 04/04/17 19:45 Urine Occult Blood MODERATE (NEGATIVE) H 04/04/17 19:45 Urine Nitrite NEGATIVE (NEGATIVE) 04/04/17 19:45 Urine Bilirubin NEGATIVE (NEGATIVE) 04/04/17 19:45 Urine Urobilinogen 0.2 (NORMAL) E.U./dL (NORMAL) 04/04/17 19:45 Ur Leukocyte Esterase NEGATIVE (NEGATIVE) 04/04/17 19:45 Urine RBC 11-25 /HPF (0-5) H 04/04/17 19:45 Urine WBC 4-5 /HPF (0-3) 04/04/17 19:45 Ur Squamous Epith Cells FEW Squamous (<= Few) 04/04/17 19:45 Amorphous Sediment Few /LPF 04/04/17 19:45 Urine Bacteria Few /HPF (None Seen) 04/04/17 19:45 Urine Casts 3-5 Fine Granular /LPF 04/04/17 19:45 Ur Microscopic Review INDICATED 04/04/17 19:45 Urine Culture Comments NOT INDICATED 04/04/17 19:45 Serum Ketones NEGATIVE (NEGATIVE) 04/04/17 10:24 Influenza A (Rapid) Negative (Negative) 04/04/17 10:10 Influenza B (Rapid) Negative (Negative) 04/04/17 10:10 Influenza Types A,B Ag - 04/04/17 10:10 Group A Strep Rapid Negative (Negative) 04/04/17 12:27 Blood Type AB POSITIVE 04/04/17 13:43 Antibody Screen NEGATIVE 04/04/17 13:43 Crossmatch IS Only See Detail 04/04/17 13:43
[2017-04-05] MEDS: IMIPRAMINE 25 MG TABLET PO SCH (20:55)
[2017-04-06] MEDS: guaiFENesin/CODEINE 5 ML UDC PO SCH ×3 (00:04→12:23)
[2017-04-06 05:49] LABS: BASOPHILS % (AUTO) 0.5 %; EOSINOPHILS # (AUTO) 0.1 10^3/uL (0.0-0.7); EOSINOPHILS % (AUTO) 2.2 %; HGB - HEMOGLOBIN 9.9 g/dL (14.0-18.0); LYMPHOCYTES # (AUTO) 1.5 10^3/uL (1.5-3.5); LYMPHOCYTES % (AUTO) 30.8 %; MEAN CORPUSCULAR HEMOGLOBIN 30.7 pg (27.0-31.0); MEAN CORPUSCULAR HGB CONC 34.8 g/dL (32.0-36.0); MEAN CORPUSCULAR VOLUME 88.2 fL (80.0-94.0); MEAN PLATELET VOLUME 8.4 fL (7.4-11.4); MONOCYTES # (AUTO) 0.5 10^3/uL (0.0-1.0); MONOCYTES % (AUTO) 11.1 %; NEUTROPHILS # (AUTO) 2.7 10^3/uL (1.5-6.6); NEUTROPHILS % (AUTO) 55.4 %; PLT - PLATELET COUNT 103 10^3/uL (130-450); RED BLOOD COUNT 3.22 10^6/uL (4.70-6.10); RED CELL DISTRIBUTION WIDTH 14.4 % (12.0-15.0); WHITE BLOOD COUNT 4.9 x10^3/uL (4.8-10.8)
[2017-04-06] MEDS: SODIUM CHLORIDE FLUSH 0.9% 10 ML SYRINGE IVP SCH ×3 (05:50→20:54)
[2017-04-06 05:59] LABS: CALCIUM 8.1 mg/dL (8.5-10.3); CREATININE 3.2 mg/dL (0.6-1.2)
[2017-04-06] MEDS: SODIUM CHLORIDE 0.9% 1,000 ML IV SCH ×4 (07:57→17:58)
[2017-04-06] MEDS: INSULIN ASPART 300 UNIT/3 ML PEN SUBQ SCH ×4 (07:57→20:53)
[2017-04-06] MEDS: METOPROLOL SUCCINATE 50 MG TABLET PO SCH ×2 (08:45→20:53)
[2017-04-06] MEDS: FAMOTIDINE 20 MG TABLET PO SCH (08:45)
[2017-04-06] MEDS: POLYETHYLENE GLYCOL 3350 17 GM PACKET PO SCH (08:46)
--- NOTE | 2017-04-06 09:36 | HISTORY & PHYSICAL EXAMINATION ---
DATE OF ADMISSION: 04/04/2017 Physician: Sheridan Burks MD HISTORY OF PRESENT ILLNESS: This is a 32-year-old white male with history of type 1 diabetes since the age of 5, HTN, peripheral vascular disease with a left distal foot amputation due to peripheral vascular disease, and slowly worsening chronic renal insufficiency. The patient has experienced symptoms of a URI with a cough, fever, nasal congestion for 4 days and presented to the emergency room because of weakness. He denied sputum, hemoptysis, chest pain or SOB, but did have nausea and vomiting but no diarrhea. He was found to have clinical signs of dehydration , and worsening renal failure with a creatinine of 4.8, and is being admitted for management. PAST MEDICAL HISTORY: Type 1 Diabetes Mellitus since age 5, on an Insulin pump, CKD followed by a First Line Production Supervisor out of town where he previously lived, HTN, PVD with a partial foot amputation. Allergies: CLINDAMYCIN VANCOMYCIN HYDRALAZINE Medications: Tofranil 50 mg qhs, Lisinopril 2.5 daily, Toprol XL 100 mg bid, Metalazone 2.5 mg daily, and Insulin pump. Family History: Heart disease on both sides of the family. He is and has one healthy child. 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 He denies smoking cigarettes, using alcohol or illicit drugs. ROS: He has retinopathy and has needed laser treatment. He underwent a Renal Ultrasound in approximately the last 6 months that was negative for renal artery stenosis. he denies cardiac symptoms. A comprehensive ROS was done and the positives are as listed here, all the rest are negative. PHYSICAL EXAM: Pale and fatigued appearing young white male. Hoarse when he speaks and has a dry cough. BP 178/110, HR 93, afebrile, O2 sat >92% on R.A. HEENT: Dry oral mucosa, nasal congestion, no sinus tenderness. Neck: No JVD, bruits, nodes or thyromegaly. Chest: scattered wheezes, no rales or rhonchi. Heart: Normal S1 and S2, no murmurs. Abdomen: soft, normal bowel sounds, non-tender, no palpable organomegaly. Extremities: No clubbing or edema. The left toes are amputated. Neurologic: Grossly intact. Labs: WBC 7 with normal diff, Hgb 8.3, Hct 22.9, platelets 115, BUN 64, creatinine 4.8 (baselinr creatinine runs 2.1 - 2.5). glucose 118, HbA1c 8.8, urinalysis Neg for ketones. Imaging: CXR: No active pulmonary disease. EKG: none IMPRESSION/DIAGNOSES: 1) URI 2) Dehydration 3) ARF on CKD 5) HTN poorly controlled 6) Anemia 7) Type 1 Diabetes on an Insulin pump. PLAN: Place the patient in Observation status. Administer iv fluids for rehydration. Follow his renal indeces. Begin a cough expectorant and suppressant and inhalers for the wheezing. Follow his H/H, since this may drop with hemodilution from iv fluids. Check a stool guaic. Type and screen for a potential PRBC transfusion, as marked anemia may be the primary cause of his complaint of weakness. CODE STATUS: Full Code. DVT prophylaxis: SCDs, avoid Lovenox due to CKD and avoid Heparin due to anemia of unknown cause. ATTESTATION: The patient is expected to be discharged home or transferred to another facility within 96 hours: Yes. DICTATION ENDS HERE, INCOMPLETE TD: 04/05/2017 04:01 MIGUEL ANGEL
[2017-04-06] MEDS ORDERED: amLODIPine 5 MG TABLET PO SCH (10:00)
[2017-04-06] MEDS ORDERED: DEXTROSE GEL 37.5 GM TUBE PO SCH (16:59)
[2017-04-06] MEDS ORDERED: DEXTROSE GEL 37.5 GM TUBE PO ONE (17:04)
--- NOTE | 2017-04-06 17:12 | PROVIDER PROGRESS NOTE ---
Assessment/Plan - Problem List (1) [id number] renal failure Qualifiers: Acute renal failure type: unspecified Chronic kidney disease stage: stage 3 (moderate) Qualified Code(s): N17.9 - Acute kidney failure, unspecified; N18.3 - Chronic kidney disease, stage 3 (moderate); N18.3 - Chronic kidney disease, stage 3 (moderate) Assessment/Plan: Small improvement in creat after blood transusions and iv saline at 100 cc/hr continuing. Will obtain Nuclear Flow and Function scan. Pt will need close F/U with his Welder/Fitter (2) Dehydration Assessment/Plan: Improving by clinical exam. Will continue hydration today yet and follow BMP. Poss DCh tomorrow (3) Type 1 diabetes mellitus Qualifiers: Diabetes mellitus complication status: with unspecified complications Qualified Code(s): E10.8 - Type 1 diabetes mellitus with unspecified complications Assessment/Plan: Continue with Insulin and diet (4) Anemia Assessment/Plan: Stool was guaic neg CBC does not describe a smear consistent with immature RBCs, etc and RDW is normal. Will check Iron studies, B12 and Folate levels (5) URI (upper respiratory infection) Assessment/Plan: Pt has less c/o nasal congestion and has a negligible cough on scheduled Robitussin. Will stop Robitussin as it may be causing over sedation ("blurred vision" complaint) (6) HTN (hypertension) Qualifiers: Hypertension type: essential hypertension Qualified Code(s): I10 - Essential (primary) hypertension Assessment/Plan: BP still poorly controlled. Will add Norvasc 5 mg po daily. - Current Meds Current Meds: Current Medications Generic Name Dose Route Start Last Admin Trade Name Shelly PRN Reason Stop Dose Admin Amlodipine Besylate 5 mg 04/06/17 10:00 04/06/17 12:23 Norvasc PO 5 mg DAILY MARY Administration Famotidine 20 mg 04/05/17 09:00 04/06/17 08:45 Pepcid PO 20 mg DAILY MARY Administration Glucose 37.5 gm 04/06/17 16:59 04/06/17 17:02 Glutose PO 04/06/17 17:59 Not Given ONCE MARY Sodium Chloride 1,000 mls @ 125 mls/hr 04/06/17 10:00 04/06/17 16:31 Normal Saline 0.9% IV 125 mls/hr .Q8H MARY Infusion Imipramine HCl 50 mg 04/04/17 21:00 04/05/17 20:55 Tofranil PO 50 mg QPM MARY Administration Insulin Aspart 1 - 5 unit 04/04/17 17:00 04/06/17 16:27 Novolog SUBQ Not Given 0800,1200,1700,2100 [facility] Protocol Metoprolol Succinate 100 mg 04/04/17 21:00 04/06/17 08:45 Toprol Xl PO 100 mg BID MARY Administration Polyethylene Glycol 17 gm 04/05/17 11:30 04/06/17 08:46 Miralax PO Not Given DAILY MARY Sodium Chloride 10 ml 04/04/17 13:22 04/05/17 13:10 Normal Saline Flush 0.9% IVP 10 ml PRN PRN Administration NEEDED PER PROVIDER ORDERS Sodium Chloride 10 ml 04/04/17 14:00 04/06/17 13:31 Normal Saline Flush 0.9% IVP Not Given Q8HR MARY - Lab Result Fish Bone Diagrams: 04/06/17 05:30 04/06/17 05:30 - Additional Planning My Orders: My Active Orders 04/06/17 10:00 Sodium Chloride 0.9% [Normal Saline 0.9%] 1,000 ml IV 125 mls/hr amLODIPine [Norvasc] 5 mg PO DAILY 04/06/17 16:59 Dextrose [Glutose] 37.5 gm PO ONCE Subjective - Subjective Patient Reports: Feeling Better, Resting Comfortably Nursing Reports: Other (Pt told his RN that the scheduled Tobitussin is "making his vision blurry when watching TV".) Objective Vital Signs: Vital Signs - 24 hr 04/05/17 04/05/17 04/05/17 17:17 17:40 20:16 Temperature 36.8 C 36.9 C 36.6 C Heart Rate 70 72 Heart Rate [ 72 Brachial] Respiratory 16 16 19 Rate Blood Pressure 161/106 H 155/99 H Blood Pressure 165/98 H [Left Brachial artery] O2 Saturation 99 04/05/17 04/05/17 04/06/17 20:45 23:57 07:23 Temperature 36.6 C 36.9 C 36.6 C Heart Rate 75 Heart Rate [ 75 70 Brachial] Respiratory 16 18 20 Rate Blood Pressure 170/100 H Blood Pressure 152/103 H 168/93 H [Left Brachial artery] O2 Saturation 100 98 04/06/17 15:27 Temperature 36.6 C Heart Rate Heart Rate [ 74 Brachial] Respiratory 16 Rate Blood Pressure Blood Pressure 185/103 H [Left Brachial artery] O2 Saturation 100 Oxygen O2 Source Room air I&O (Last 24 Hrs): Intake and Output Totals x24h 04/04/17 04/05/17 04/06/17 23:59 23:59 23:59 Intake Total 1880 2426.25 Output Total 700 Balance 1180 2426.25 General: Alert, Oriented x3, No acute distress HEENT: Mucous membr. moist/pink Neck: Supple Cardiovascular: Regular rate Respiratory: No respiratory distress Abdomen: Soft Extremities: No edema, Other (L toes amputated) - Results Results: Laboratory Results WBC 4.9 x10^3/uL (4.8-10.8) 04/06/17 05:30 RBC 3.22 10^6/uL (4.70-6.10) L 04/06/17 05:30 Hgb 9.9 g/dL (14.0-18.0) L 04/06/17 05:30 Hct 28.4 % (42.0-52.0) L 04/06/17 05:30 MCV 88.2 fL (80.0-94.0) 04/06/17 05:30 MCH 30.7 pg (27.0-31.0) 04/06/17 05:30 MCHC 34.8 g/dL (32.0-36.0) 04/06/17 05:30 RDW 14.4 % (12.0-15.0) 04/06/17 05:30 Plt Count 103 10^3/uL (130-450) L 04/06/17 05:30 MPV 8.4 fL (7.4-11.4) 04/06/17 05:30 Neut # 2.7 10^3/uL (1.5-6.6) 04/06/17 05:30 Lymph # 1.5 10^3/uL (1.5-3.5) 04/06/17 05:30 [place] # 0.5 10^3/uL (0.0-1.0) 04/06/17 05:30 Eos # 0.1 10^3/uL (0.0-0.7) 04/06/17 05:30 Baso # 0.0 10^3/uL (0.0-0.1) 04/06/17 05:30 Absolute Nucleated RBC 0.00 x10^3/uL 04/06/17 05:30 Nucleated RBC % 0.0 /100WBC 04/06/17 05:30 VBG pH 7.401 (7.31-7.41) 04/04/17 10:24 VBG pCO2 34.1 mmHg (41-51) L 04/04/17 10:24 VBG pO2 31.1 mmHg (25-47) 04/04/17 10:24 VBG HCO3 20.7 mmol/L (23-28) L 04/04/17 10:24 VBG Total CO2 21.7 mmol/L (24-29) L 04/04/17 10:24 VBG O2 Saturation 62.9 % (60-80) 04/04/17 10:24 VBG Base Excess -3.6 mmol/L (-2 - +2) L 04/04/17 10:24 Sodium 139 mmol/L (135-145) 04/06/17 05:30 Potassium 4.1 mmol/L (3.5-5.0) 04/06/17 05:30 Chloride 107 mmol/L (101-111) 04/06/17 05:30 Carbon Dioxide 23 mmol/L (21-32) 04/06/17 05:30 Anion Gap 9.0 (6-13) 04/06/17 05:30 BUN 50 mg/dL (6-20) H 04/06/17 05:30 Creatinine 3.2 mg/dL (0.6-1.2) H 04/06/17 05:30 Estimated GFR (MDRD) 23 (>89) L 04/06/17 05:30 Glucose 118 mg/dL (70-100) H 04/06/17 05:30 POC Whole Bld Glucose 57 mg/dL (70 - 100) L* 04/06/17 16:23 Glycated Hemoglobin 8.8 % (4.6-6.2) H 04/04/17 08:50 Estim Average Glucose 206 (70-100) H 04/04/17 08:50 Lactic Acid 1.5 mmol/L (0.5-2.2) 04/04/17 08:50 Calcium 8.1 mg/dL (8.5-10.3) L 04/06/17 05:30 Magnesium 1.8 mg/dL (1.7-2.8) 04/04/17 13:43 Total Bilirubin 0.6 mg/dL (0.2-1.0) 04/04/17 08:50 AST 29 IU/L (10-42) 04/04/17 08:50 ALT 30 IU/L (10-60) 04/04/17 08:50 Alkaline Phosphatase 68 IU/L (42-121) 04/04/17 08:50 Troponin I < 0.04 ng/mL (<0.49) 04/04/17 08:50 Total Protein 7.2 g/dL (6.7-8.2) 04/04/17 08:50 Albumin 3.2 g/dL (3.2-5.5) 04/04/17 08:50 Globulin 4.0 g/dL (2.1-4.2) 04/04/17 08:50 Albumin/Globulin Ratio 0.8 (1.0-2.2) L 04/04/17 08:50 Lipase 18 U/L (22-51) L 04/04/17 08:50 Urine Color YELLOW 04/04/17 19:45 Urine Clarity HAZY (CLEAR) 04/04/17 19:45 Urine pH 6.0 PH (5.0-7.5) 04/04/17 19:45 Ur Specific [place] 1.025 (1.002-1.030) 04/04/17 19:45 Urine Protein >=300 mg/dL (NEGATIVE) 04/04/17 19:45 Urine Glucose (UA) 250 mg/dL (NEGATIVE) H 04/04/17 19:45 Urine Ketones NEGATIVE mg/dL (NEGATIVE) 04/04/17 19:45 Urine Occult Blood MODERATE (NEGATIVE) H 04/04/17 19:45 Urine Nitrite NEGATIVE (NEGATIVE) 04/04/17 19:45 Urine Bilirubin NEGATIVE (NEGATIVE) 04/04/17 19:45 Urine Urobilinogen 0.2 (NORMAL) E.U./dL (NORMAL) 04/04/17 19:45 Ur Leukocyte Esterase NEGATIVE (NEGATIVE) 04/04/17 19:45 Urine RBC 11-25 /HPF (0-5) H 04/04/17 19:45 Urine WBC 4-5 /HPF (0-3) 04/04/17 19:45 Ur Squamous Epith Cells FEW Squamous (<= Few) 04/04/17 19:45 Amorphous Sediment Few /LPF 04/04/17 19:45 Urine Bacteria Few /HPF (None Seen) 04/04/17 19:45 Urine Casts 3-5 Fine Granular /LPF 04/04/17 19:45 Ur Microscopic Review INDICATED 04/04/17 19:45 Urine Culture Comments NOT INDICATED 04/04/17 19:45 Serum Ketones NEGATIVE (NEGATIVE) 04/04/17 10:24 Influenza A (Rapid) Negative (Negative) 04/04/17 10:10 Influenza B (Rapid) Negative (Negative) 04/04/17 10:10 Influenza Types A,B Ag - 04/04/17 10:10 Group A Strep Rapid Negative (Negative) 04/04/17 12:27 Blood Type AB POSITIVE 04/04/17 13:43 Antibody Screen NEGATIVE 04/04/17 13:43 Crossmatch IS Only See Detail 04/04/17 13:43
[2017-04-06] MEDS: IMIPRAMINE 25 MG TABLET PO SCH (20:53)
[2017-04-07] MEDS: SODIUM CHLORIDE 0.9% 1,000 ML IV SCH (02:06)
[2017-04-07] MEDS: SODIUM CHLORIDE FLUSH 0.9% 10 ML SYRINGE IVP SCH ×3 (02:40→20:17)
[2017-04-07 05:35] LABS: BASOPHILS % (AUTO) 0.6 %; EOSINOPHILS # (AUTO) 0.1 10^3/uL (0.0-0.7); EOSINOPHILS % (AUTO) 2.3 %; HGB - HEMOGLOBIN 9.5 g/dL (14.0-18.0); LYMPHOCYTES # (AUTO) 1.4 10^3/uL (1.5-3.5); LYMPHOCYTES % (AUTO) 33.4 %; MEAN CORPUSCULAR HEMOGLOBIN 30.7 pg (27.0-31.0); MEAN CORPUSCULAR HGB CONC 34.9 g/dL (32.0-36.0); MEAN PLATELET VOLUME 8.8 fL (7.4-11.4); MONOCYTES # (AUTO) 0.5 10^3/uL (0.0-1.0); MONOCYTES % (AUTO) 10.9 %; NEUTROPHILS # (AUTO) 2.2 10^3/uL (1.5-6.6); NEUTROPHILS % (AUTO) 52.8 %; PLT - PLATELET COUNT 118 10^3/uL (130-450); RED BLOOD COUNT 3.09 10^6/uL (4.70-6.10); RED CELL DISTRIBUTION WIDTH 14.6 % (12.0-15.0); WHITE BLOOD COUNT 4.1 x10^3/uL (4.8-10.8)
[2017-04-07 06:00] LABS: % IRON SATURATION 22 % (20-50); IRON 45 ug/dL (45-182); TOTAL IRON BINDING CAPACITY 202 ug/dL (250-450); TRANSFERRIN 144 mg/dL (180-329)
[2017-04-07] MEDS: INSULIN ASPART 300 UNIT/3 ML PEN SUBQ SCH (09:23)
[2017-04-07] MEDS ORDERED: amLODIPine 5 MG TABLET PO SCH (09:30)
[2017-04-07] MEDS: METOPROLOL SUCCINATE 50 MG TABLET PO SCH ×2 (09:34→20:17)
[2017-04-07] MEDS: POLYETHYLENE GLYCOL 3350 17 GM PACKET PO SCH (09:35)
[2017-04-07] MEDS: FAMOTIDINE 20 MG TABLET PO SCH (09:35)
[2017-04-07 10:07] LABS: CALCIUM 8.1 mg/dL (8.5-10.3); CREATININE 2.9 mg/dL (0.6-1.2)
--- NOTE | 2017-04-07 11:00 | CT Report ---
EXAM: CT HEAD EXAM DATE: 04/07/2017 10:50 AM. CLINICAL HISTORY: Blurred vision. Stroke protocol. COMPARISON: Head CT 02/01/2017. TECHNIQUE: Multiaxial CT images were obtained from the foramen magnum to the vertex. Reformats: Coron al. IV contrast: None. In accordance with CT protocol optimization, one or more of the following dose reduction techniques w ere utilized for this exam: automated exposure control, adjustment of mA and/or KV based on patient s ize, or use of iterative reconstructive technique. FINDINGS: Parenchyma: No intraparenchymal hemorrhage. No focal mass effect, midline shift, or CT findings of ac [place] infarction. Ivey-white differentiation is distinct. Extraaxial Spaces: Normal. No subdural or epidural collections identified. Ventricles: Normal in size and position. Sinuses and Orbits: A tiny dependent fluid level in the partially visualized left maxillary antrum. T he visualized paranasal sinuses, orbits, and mastoids are otherwise clear. Bones: No evidence of fracture or calvarial defect. IMPRESSION: 1. Negative noncontrast brain CT. No intracranial hemorrhage, mass, or CT signs of acute infarct. Con rating examiner MRI, if clinically appropriate. 2. Trace dependent fluid level in the partially visualized left maxillary antrum could indicate mild acute sinusitis. [facility] Referring Provider Line: [phone] SITE ID: [id number]
[2017-04-07] MEDS ORDERED: SODIUM CHLORIDE FLUSH 0.9% 10 ML SYRINGE ONE (15:34)
[2017-04-07] MEDS ORDERED: amLODIPine 5 MG TABLET PO ONE (17:30)
--- NOTE | 2017-04-07 19:10 | PROVIDER PROGRESS NOTE ---
Assessment/Plan - Problem List (1) Visual changes Assessment/Plan: No focal deficit on exam. CT of head did not show brain abnormality- stroke ruled out. Possibly eye sight changes from marked changes in glucose. Will adjust Insulin coverage. (2) HTN (hypertension) Qualifiers: Hypertension type: secondary to other renal disorders Qualified Code(s): I15.1 - Hypertension secondary to other renal disorders; N28.89 - Other specified disorders of kidney and ureter; N28.89 - Other specified disorders of kidney and ureter Assessment/Plan: Will adjust Metoprolol dose and (new) Norvasc dose. Probable discharge tomorrow. (3) [id number] renal failure Qualifiers: Acute renal failure type: unspecified Chronic kidney disease stage: stage 3 (moderate) Qualified Code(s): N17.9 - Acute kidney failure, unspecified; N18.3 - Chronic kidney disease, stage 3 (moderate); N18.3 - Chronic kidney disease, stage 3 (moderate) Assessment/Plan: Improvement. iv fluids to stop, continue po fluids Awaiting nuclear Renal flow and function study, but Tech says the nuclear material (Mg isotope) cannot be heated here and he needs one day notice to get Mg. Tgerefore, this will need to be done as outpt. (4) Dehydration Assessment/Plan: Clinically no longer dehydrated (5) Type 1 diabetes mellitus Qualifiers: Diabetes mellitus complication status: with unspecified complications Qualified Code(s): E10.8 - Type 1 diabetes mellitus with unspecified complications Assessment/Plan: Very fluctuating glu results. Will have MAC diabetic n urse reprogram Insulin pump. (6) Anemia Assessment/Plan: No evidence of Fe deficiency, B12 or Folate deficiency or guaic pos stool. Likely has anemia of chronic disease and will need further Renal and Heatology evaluation. (7) URI (upper respiratory infection) Assessment/Plan: Nearly resolved cough. CT head did show mild L side sinusitis. - Current Meds Current Meds: Current Medications Generic Name Dose Route Start Last Admin Trade Name Freq PRN Reason Stop Dose Admin Famotidine 20 mg 04/05/17 09:00 04/07/17 09:35 Pepcid PO 20 mg DAILY MARY Administration Imipramine HCl 50 mg 04/04/17 21:00 04/06/17 20:53 Tofranil PO 50 mg QPM MARY Administration Polyethylene Glycol 17 gm 04/05/17 11:30 04/07/17 09:35 Miralax PO 17 gm DAILY MARY Administration Sodium Chloride 10 ml 04/04/17 13:22 04/05/17 13:10 Normal Saline Flush 0.9% IVP 10 ml PRN PRN Administration NEEDED PER PROVIDER ORDERS Sodium Chloride 10 ml 04/04/17 14:00 04/07/17 16:44 Normal Saline Flush 0.9% IVP Not Given Q8HR MARY - Lab Result Fish Bone Diagrams: 04/07/17 04:35 04/07/17 04:35 - Additional Planning My Orders: My Active Orders 04/07/17 21:00 Metoprolol Succinate [Toprol Xl] 150 mg PO BID 04/08/17 05:00 VITAMIN B12 [IAI] Routine 04/08/17 09:00 amLODIPine [Norvasc] 10 mg PO DAILY Subjective - Subjective Patient Reports: Other (Since yesterday, eyes cannot focus. "Letters look wavy". ) Nursing Reports: Other (BP elevated all day.) Objective Vital Signs: Vital Signs - 24 hr 04/07/17 04/07/17 04/07/17 01:32 08:55 11:24 Temperature 36.5 C 36.8 C Heart Rate [ 69 72 75 Brachial] Respiratory 16 18 Rate Blood Pressure 159/95 H 161/90 H 191/112 H [Left Brachial artery] Blood Pressure 178/110 H [Right Brachial artery] O2 Saturation 98 98 04/07/17 04/07/17 04/07/17 13:13 14:54 16:01 Temperature 36.5 C Heart Rate [ 69 75 75 Brachial] Respiratory 14 Rate Blood Pressure 151/109 H 142/86 H [Left Brachial artery] Blood Pressure 174/101 H [Right Brachial artery] O2 Saturation 98 04/07/17 04/07/17 17:17 18:41 Temperature 36.2 C L Heart Rate [ 74 Brachial] Respiratory 16 Rate Blood Pressure [Left Brachial artery] Blood Pressure 177/109 H 169/101 H [Right Brachial artery] O2 Saturation 99 Oxygen O2 Source Room air I&O (Last 24 Hrs): Intake and Output Totals x24h 04/05/17 04/06/17 04/07/17 23:59 23:59 23:59 Intake Total 1880 3014.167 1216.667 Output Total 700 Balance 1180 3014.167 1216.667 General: Alert HEENT: PERRLA, Mucous membr. moist/pink, Other (Retinae appear normal.) Neck: Supple, No JVD Neuro: Alert, Oriented Times 3 Cardiovascular: Regular rate, No murmurs Respiratory: No respiratory distress Abdomen: Soft Extremities: No edema - Results Results: Laboratory Results WBC 4.1 x10^3/uL (4.8-10.8) L 04/07/17 04:35 RBC 3.09 10^6/uL (4.70-6.10) L 04/07/17 04:35 Hgb 9.5 g/dL (14.0-18.0) L 04/07/17 04:35 Hct 27.2 % (42.0-52.0) L 04/07/17 04:35 MCV 88.0 fL (80.0-94.0) 04/07/17 04:35 MCH 30.7 pg (27.0-31.0) 04/07/17 04:35 MCHC 34.9 g/dL (32.0-36.0) 04/07/17 04:35 RDW 14.6 % (12.0-15.0) 04/07/17 04:35 Plt Count 118 10^3/uL (130-450) L 04/07/17 04:35 MPV 8.8 fL (7.4-11.4) 04/07/17 04:35 Neut # 2.2 10^3/uL (1.5-6.6) 04/07/17 04:35 Lymph # 1.4 10^3/uL (1.5-3.5) L 04/07/17 04:35 [place] # 0.5 10^3/uL (0.0-1.0) 04/07/17 04:35 Eos # 0.1 10^3/uL (0.0-0.7) 04/07/17 04:35 Baso # 0.0 10^3/uL (0.0-0.1) 04/07/17 04:35 Absolute Nucleated RBC 0.00 x10^3/uL 04/07/17 04:35 Nucleated RBC % 0.1 /100WBC 04/07/17 04:35 VBG pH 7.401 (7.31-7.41) 04/04/17 10:24 VBG pCO2 34.1 mmHg (41-51) L 04/04/17 10:24 VBG pO2 31.1 mmHg (25-47) 04/04/17 10:24 VBG HCO3 20.7 mmol/L (23-28) L 04/04/17 10:24 VBG Total CO2 21.7 mmol/L (24-29) L 04/04/17 10:24 VBG O2 Saturation 62.9 % (60-80) 04/04/17 10:24 VBG Base Excess -3.6 mmol/L (-2 - +2) L 04/04/17 10:24 Sodium 143 mmol/L (135-145) 04/07/17 04:35 Potassium 4.0 mmol/L (3.5-5.0) 04/07/17 04:35 Chloride 110 mmol/L (101-111) 04/07/17 04:35 Carbon Dioxide 23 mmol/L (21-32) 04/07/17 04:35 Anion Gap 10.0 (6-13) 04/07/17 04:35 BUN 40 mg/dL (6-20) H 04/07/17 04:35 Creatinine 2.9 mg/dL (0.6-1.2) H 04/07/17 04:35 Estimated GFR (MDRD) 26 (>89) L 04/07/17 04:35 Glucose 49 mg/dL (70-100) L* 04/07/17 04:35 POC Whole Bld Glucose 92 mg/dL (70 - 100) 04/07/17 16:43 Glycated Hemoglobin 8.8 % (4.6-6.2) H 04/04/17 08:50 Estim Average Glucose 206 (70-100) H 04/04/17 08:50 Lactic Acid 1.5 mmol/L (0.5-2.2) 04/04/17 08:50 Calcium 8.1 mg/dL (8.5-10.3) L 04/07/17 04:35 Magnesium 1.8 mg/dL (1.7-2.8) 04/04/17 13:43 Iron 45 ug/dL (45-182) 04/07/17 04:35 TIBC 202 ug/dL (250-450) L 04/07/17 04:35 % Saturation 22 % (20-50) 04/07/17 04:35 Transferrin 144 mg/dL (180-329) L 04/07/17 04:35 Total Bilirubin 0.6 mg/dL (0.2-1.0) 04/04/17 08:50 AST 29 IU/L (10-42) 04/04/17 08:50 ALT 30 IU/L (10-60) 04/04/17 08:50 Alkaline Phosphatase 68 IU/L (42-121) 04/04/17 08:50 Troponin I < 0.04 ng/mL (<0.49) 04/04/17 08:50 Total Protein 7.2 g/dL (6.7-8.2) 04/04/17 08:50 Albumin 3.2 g/dL (3.2-5.5) 04/04/17 08:50 Globulin 4.0 g/dL (2.1-4.2) 04/04/17 08:50 Albumin/Globulin Ratio 0.8 (1.0-2.2) L 04/04/17 08:50 Lipase 18 U/L (22-51) L 04/04/17 08:50 Folate 20.65 ng/mL (5.90 - >24.8) 04/07/17 04:35 Urine Color YELLOW 04/04/17 19:45 Urine Clarity HAZY (CLEAR) 04/04/17 19:45 Urine pH 6.0 PH (5.0-7.5) 04/04/17 19:45 Ur Specific [place] 1.025 (1.002-1.030) 04/04/17 19:45 Urine Protein >=300 mg/dL (NEGATIVE) 04/04/17 19:45 Urine Glucose (UA) 250 mg/dL (NEGATIVE) H 04/04/17 19:45 Urine Ketones NEGATIVE mg/dL (NEGATIVE) 04/04/17 19:45 Urine Occult Blood MODERATE (NEGATIVE) H 04/04/17 19:45 Urine Nitrite NEGATIVE (NEGATIVE) 04/04/17 19:45 Urine Bilirubin NEGATIVE (NEGATIVE) 04/04/17 19:45 Urine Urobilinogen 0.2 (NORMAL) E.U./dL (NORMAL) 04/04/17 19:45 Ur Leukocyte Esterase NEGATIVE (NEGATIVE) 04/04/17 19:45 Urine RBC 11-25 /HPF (0-5) H 04/04/17 19:45 Urine WBC 4-5 /HPF (0-3) 04/04/17 19:45 Ur Squamous Epith Cells FEW Squamous (<= Few) 04/04/17 19:45 Amorphous Sediment Few /LPF 04/04/17 19:45 Urine Bacteria Few /HPF (None Seen) 04/04/17 19:45 Urine Casts 3-5 Fine Granular /LPF 04/04/17 19:45 Ur Microscopic Review INDICATED 04/04/17 19:45 Urine Culture Comments NOT INDICATED 04/04/17 19:45 Serum Ketones NEGATIVE (NEGATIVE) 04/04/17 10:24 Influenza A (Rapid) Negative (Negative) 04/04/17 10:10 Influenza B (Rapid) Negative (Negative) 04/04/17 10:10 Influenza Types A,B Ag - 04/04/17 10:10 Group A Strep Rapid Negative (Negative) 04/04/17 12:27 Blood Type AB POSITIVE 04/04/17 13:43 Antibody Screen NEGATIVE 04/04/17 13:43 Crossmatch IS Only See Detail 04/04/17 13:43
[2017-04-07] MEDS: IMIPRAMINE 25 MG TABLET PO SCH (20:17)
[2017-04-08] MEDS: SODIUM CHLORIDE FLUSH 0.9% 10 ML SYRINGE IVP SCH (07:02)
[2017-04-08 07:36] VITALS: BP 167/99
[2017-04-08] MEDS: METOPROLOL SUCCINATE 50 MG TABLET PO SCH (08:36)
[2017-04-08] MEDS: FAMOTIDINE 20 MG TABLET PO SCH (08:37)
[2017-04-08] MEDS: POLYETHYLENE GLYCOL 3350 17 GM PACKET PO SCH (08:37)
[2017-04-08 08:45] LABS: BASOPHILS # (AUTO) 0.1 10^3/uL (0.0-0.1); BASOPHILS % (AUTO) 1.1 %; EOSINOPHILS # (AUTO) 0.1 10^3/uL (0.0-0.7); EOSINOPHILS % (AUTO) 2.2 %; HGB - HEMOGLOBIN 11.2 g/dL (14.0-18.0); LYMPHOCYTES # (AUTO) 1.3 10^3/uL (1.5-3.5); LYMPHOCYTES % (AUTO) 24.2 %; MEAN CORPUSCULAR HEMOGLOBIN 29.9 pg (27.0-31.0); MEAN CORPUSCULAR HGB CONC 33.7 g/dL (32.0-36.0); MEAN CORPUSCULAR VOLUME 88.5 fL (80.0-94.0); MEAN PLATELET VOLUME 8.5 fL (7.4-11.4); MONOCYTES # (AUTO) 0.4 10^3/uL (0.0-1.0); NEUTROPHILS # (AUTO) 3.5 10^3/uL (1.5-6.6); NEUTROPHILS % (AUTO) 64.5 %; PLT - PLATELET COUNT 183 10^3/uL (130-450); RED BLOOD COUNT 3.75 10^6/uL (4.70-6.10); RED CELL DISTRIBUTION WIDTH 14.6 % (12.0-15.0); WHITE BLOOD COUNT 5.5 x10^3/uL (4.8-10.8)
[2017-04-08 09:00] LABS: CALCIUM 8.3 mg/dL (8.5-10.3); CREATININE 2.7 mg/dL (0.6-1.2)
[2017-04-08] MEDS ORDERED: amLODIPine 5 MG TABLET PO SCH (09:00)
--- NOTE | 2017-04-08 09:27 | Discharge Plan ---
Discharge Plan Disposition: Home, Self Care Condition: Stable Prescriptions: amLODIPine [Norvasc] 10 mg PO DAILY #60 tablet Metoprolol Succinate [Toprol Xl] 150 mg PO BID #90 tab.er.24h Diet: Diabetic Activity Restrictions: No Restrictions Shower Restrictions: No Driving Restrictions: No Instruction Topics: Amlodipine tablets, Amlodipine Additional Instructions or Follow Up instructions: Decrease your Insulin pump infusion as discussed and see your PCP and Outside Sales soon for further management. Remember to eat appropriately to avoid LOW blood sugars. Resume all your medications as you took before this hospitalization EXCEPT: the Metoprolol dose has been increased AND you are on a second medication (Norvasc) for high blood pressure. See your Deployment Manager soon for further management of blood pressure, anemia and declining kidney function. The Renal Flow and Function Nuclear Scan could not be arranged to be done while you were here and will need to done as an outpatient. No Smoking: If you smoke, Please STOP! Call for help. Follow-up with: VAZQUEZ PETEROSN ARNP [Primary Care Provider] -
--- NOTE | 2017-04-19 03:46 | DISCHARGE SUMMARY ---
Physician: Sheridan Burks MD DATE OF ADMISSION: 04/05/2017 DATE OF DISCHARGE: 04/08/2017 HISTORY OF PRESENT ILLNESS: This is a 32-year-old, white male with a history of insulin-dependent diabetes since age 5, peripheral vascular disease with toe amputations, chronic renal insufficiency, anemia. The patient presented to the emergency room with 4 days of upper respiratory symptoms and overall weakness, and was found to have marked dehydration and acute on chronic renal insufficiency, and admitted for management. HOSPITAL COURSE AND DISCHARGE DIAGNOSES 1. Upper respiratory infection. The patient had no signs of bacterial infection and was managed symptomatically with IV hydration, expectorant and cough suppressant, who improved significantly by the time of discharge. 2. Dehydration. The patient's blood work showed a BUN of 64 and creatinine of 4.8 (baseline creatinine 2.5). His lactic acid level was 1.5. He had a dry oral mucosa and a nonproductive cough, and was rehydrated with IV fluids, continuing daily until discharge. With this management, there was improvement in his creatinine back to baseline. The patient had no hypotension related to this dehydration. 3. Type 1 diabetes. The patient is on an insulin pump. He initially had high glucoses of approximately 200. As his URI improved, he had very erratic glucose measurements and some very low, 34 and 45 on the day prior to discharge. The endocrine nurse from [facility] assisted him in reprogramming his insulin pump because of these low glucose values. It is suspected that his history of retinopathy, renal failure and anemia, as well as visual changes (see these all below) are related to his type 1 diabetes. 4. Hypertension. The patient had poorly controlled blood pressure throughout this course, running as high as 178/110 on presentation and 202/113 the day before discharge. His metoprolol succinate dose of 100 b.i.d. was increased to 150 p.o. b.i.d., and he was discharged on a new medication of Norvasc 10 mg p.o. daily. With this management here, as well as improved renal function, his discharge blood pressure was 160/97 and 167/99. 5. Acute renal failure on chronic kidney disease. The patient had a renal ultrasound done several months previously showing no renal artery stenosis. He is being followed by an out-of-town [facility] where he used to live. He reports that no other renal workup has been done yet. With hydration, the patient's creatinine of 4.8 improved to 2.7 at the time of discharge. We attempted to order a nuclear renal flow and function scan, but we were unable to get the nuclear isotope before a weekend, and this test will need to be done as an outpatient. 6. Visual changes. In the final 2 days of his hospitalization, the patient reported that his distant vision, the TV and clock on the wall, appeared to have a slant. A thorough neurologic exam was done and was nonfocal. He did undergo a head CT to rule out a stroke, and this showed no evidence of acute changes, but mild left-sided sinusitis was noted incidentally. It was felt that these visual changes were related to the dramatic glucose fluctuations and these could take several weeks for eyesight to return to normal. At the time of discharge, it was somewhat better. 7. Anemia. The patient's admission hemoglobin was 8.3 and, with aggressive iv volume replacement, the following morning his hemoglobin was 6.4, rechecked to rule out lab error and it did return at 6.6. Because of this, he was ordered a transfusion of 3 units of PRBCs and had improvement to a hemoglobin of 9.9. The hemoglobin at discharge was 11.2. We undertook some testing to rule out a cause of the severe anemia: the patient had normal serum iron, TIBC, B12 and folate levels and had guaiac negative stools. The patient may have anemia of chronic disease related to his renal insufficiency and this will need further evaluation by Hematology and/or Nephrology. 8. Peripheral vascular disease. The patient has a history of amputation of toes of the left foot. There were no complaints or issues related to this diagnosis. ALLERGIES 1. CLINDAMYCIN 2. VANCOMYCIN. 3. HYDRALAZINE. MEDICATIONS AT THE TIME OF DISCHARGE 1. Insulin via insulin pump subcutaneous. 2. Zaroxolyn 2.5 mg p.o. daily. 3. Lisinopril 2.5 mg p.o. daily. 4. Tofranil 50 mg q.p.m. 5. Amlodipine 10 mg p.o. daily. 6. Toprol-XL 150 mg p.o. b.i.d. CONDITION AT DISCHARGE: Stable. PHYSICAL EXAMINATION AT DISCHARGE VITAL SIGNS: Blood pressure 167/99, pulse of 74, sinus rhythm, afebrile, room air saturation 100%. HEENT: Unremarkable. NECK: Without JVD or carotid bruits. No thyromegaly or lymphadenopathy. CHEST: Clear. HEART: Sounds normal. ABDOMEN: Soft, nontender. No organomegaly. EXTREMITIES: No edema. Left toes are all amputated. NEUROLOGIC: Grossly intact except his vision is not normal (see above). FOLLOWUP: The patient is advised to see his PCP in 1-2 weeks in followup and to keep the already scheduled appointment with his [facility] in the upcoming weeks. CODE STATUS: FULL CODE. TIME REQUIRED TO COMPLETE THIS ENTIRE DISCHARGE: Forty-five minutes. TD: 04/19/2017 03:45 MIGUEL ANGEL
== END 2017-04-08 11:10 | disposition home or self-care (01) | DRG 153 ==
LOC: ED 08:19 → OBS 13:22 → OBSVTOIN 04-05 10:18 → MS2 04-05 18:38
PROVIDERS: ADMIT Internal Medicine; ATTEND Internal Medicine
PROC: 30233N1 Transfusion of Nonautologous Red Blood Cells into Peripheral Vein, Percutaneous Approach (ICD-10-PCS; principal; 2017-04-05)
DX: J06.9 Acute upper respiratory infection, unspecified (principal); N17.9 Acute kidney failure, unspecified; D63.1 Anemia in chronic kidney disease; E86.0 Dehydration; I12.9 Hypertensive chronic kidney disease with stage 1 through stage 4 chronic kidney disease, or unspecified chronic kidney disease; E10.51 Type 1 diabetes mellitus with diabetic peripheral angiopathy without gangrene; N18.3 Chronic kidney disease, stage 3 (moderate); E10.319 Type 1 diabetes mellitus with unspecified diabetic retinopathy without macular edema; E10.22 Type 1 diabetes mellitus with diabetic chronic kidney disease; Z96.41 Presence of insulin pump (external) (internal); H53.9 Unspecified visual disturbance; Z89.422 Acquired absence of other left toe(s); Z79.899 Other long term (current) drug therapy
CPT/HCPCS: 36415; 70450; 80048; 80053; 81001; 81003; 82009; 82270; 82607; 82746; 82803; 83036; 83540; 83605; 83690; 83735; 84466; 84484; 85014; 85018; 85025; 86850; 86900; 86901; 86920; 87070; 87086; 87275; 87276; 87430; 96360; 96361; 99284

== ENCOUNTER 2017-04-20 18:31 | Emergency (ER) | payer OTHER ==
[2017-04-20 19:34] LABS: BASOPHILS # (AUTO) 0.1 10^3/uL (0.0-0.1); EOSINOPHILS # (AUTO) 0.1 10^3/uL (0.0-0.7); EOSINOPHILS % (AUTO) 1.9 %; HGB - HEMOGLOBIN 9.5 g/dL (14.0-18.0); LYMPHOCYTES # (AUTO) 1.5 10^3/uL (1.5-3.5); LYMPHOCYTES % (AUTO) 25.5 %; MEAN CORPUSCULAR HGB CONC 34.6 g/dL (32.0-36.0); MEAN CORPUSCULAR VOLUME 86.6 fL (80.0-94.0); MEAN PLATELET VOLUME 8.4 fL (7.4-11.4); MONOCYTES # (AUTO) 0.4 10^3/uL (0.0-1.0); MONOCYTES % (AUTO) 6.8 %; NEUTROPHILS # (AUTO) 3.8 10^3/uL (1.5-6.6); NEUTROPHILS % (AUTO) 64.8 %; PLT - PLATELET COUNT 221 10^3/uL (130-450); RED BLOOD COUNT 3.16 10^6/uL (4.70-6.10); WHITE BLOOD COUNT 5.9 x10^3/uL (4.8-10.8)
[2017-04-20 19:42] LABS: ALBUMIN 3.6 g/dL (3.2-5.5); ALBUMIN/GLOBULIN RATIO 0.9 (1.0-2.2); BILIRUBIN,TOTAL 0.7 mg/dL (0.2-1.0); CALCIUM 8.9 mg/dL (8.5-10.3); CREATININE 3.6 mg/dL (0.6-1.2); TOTAL PROTEIN 7.8 g/dL (6.7-8.2)
--- NOTE | 2017-04-20 19:53 | ED Physician Documentation ---
PD HPI DYSPNEA - Stated complaint Stated Complaint: SOA - Chief complaint Chief Complaint: General - History obtained from History obtained from: Patient - History of Present Illness Timing - onset: How many days ago (1-2) Timing - onset during: Light activity Timing - duration: Days Timing - details: Gradual onset, Still present Inciting event(s): No: Out of meds, URI Improved by: Rest Associated symptoms: No: Fever, Cough, Wheezing, Chest pain / discomfort, Palpitations, Bilateral edema Similar symptoms before: Diagnosis (he feels tired and dyszpneda similar to when he has anemia and before trnasfusions.) Review of Systems Constitutional: denies: Fever, Chills, Myalgias Nose: denies: Rhinorrhea / runny nose, Congestion Throat: denies: Sore throat Cardiac: denies: Chest pain / pressure, Palpitations Respiratory: reports: Dyspnea. denies: Cough, Wheezing GI: denies: Nausea, Vomiting, Diarrhea, Bloody / black stool : denies: Dysuria, Frequency Skin: denies: Rash, Lesions PD PAST MEDICAL HISTORY - Past Medical History Cardiovascular: Hypertension Respiratory: None Neuro: None Endocrine/Autoimmune: Type 1 diabetes GI: None : Renal insuffiency HEENT: None Psych: None Musculoskeletal: None Derm: None - Past Surgical History Past Surgical History: Yes - Present Medications Home Medications: Ambulatory Orders Medication Instructions Recorded Confirmed Imipramine [Tofranil] 50 mg PO QPM 01/22/17 04/04/17 Insulin Aspart (Vial) [NovoLOG 32 - 36 unit SUBQ DAILY 01/22/17 04/04/17 (VIAL FOR ED USE)] Lisinopril 2.5 mg PO DAILY #30 tablet 01/25/17 04/04/17 metOLazone [Zaroxolyn] 2.5 mg PO DAILY #30 tablet 01/25/17 04/04/17 Amlodipine Besylate 10 mg PO DAILY 04/04/17 04/04/17 Metoprolol Succinate [Toprol Xl] 150 mg PO BID #90 tab.er.24h 04/08/17 amLODIPine [Norvasc] 10 mg PO DAILY #60 tablet 04/08/17 - Allergies Allergies/Adverse Reactions: Allergies Allergy/AdvReac Type Severity Reaction Status Date / Time clindamycin Allergy Rash Verified 04/20/17 18:44 vancomycin Allergy Rash Verified 04/20/17 18:44 hydralazine AdvReac Emesis Verified 04/20/17 18:44 - Social History Does the pt smoke?: No Smoking Status: Never smoker Does the pt drink ETOH?: No Does the pt have substance abuse?: No - Immunizations Immunizations are current?: Yes - POLST Patient has POLST: No PD ED PE NORMAL - Vitals Vital signs reviewed: Yes - General General: Alert and oriented X 3, No acute distress, Well developed/nourished - HEENT HEENT: Ears normal, Pharynx benign - Neck Neck: Supple, no meningeal sign, No adenopathy - Cardiac Cardiac: RRR, No murmur, No rub - Respiratory Respiratory: Clear bilaterally - Abdomen Abdomen: Soft, Non tender - Back Back: No CVA TTP - Derm Derm: Normal color, Warm and dry - Extremities Extremities: No tenderness to palpate, Normal ROM s pain, No edema, No calf tenderness / cord - Neuro Neuro: Alert and oriented X 3, No motor deficit, Normal speech Results - Vitals Vitals: Oxygen O2 Source Room air - EKG (time done) 18:37 Rate: Rate (enter#) (85) Rhythm: NSR Supai: Normal Intervals: Normal CT QRS: Normal Ischemia: Normal ST segments. No: ST elevation c/w ischemia, ST depression - Labs Labs: Laboratory Tests 04/20/17 04/20/17 04/20/17 19:21 19:25 19:25 WBC 5.9 RBC 3.16 L Hgb 9.5 L Hct 27.3 L MCV 86.6 MCH 30.0 MCHC 34.6 RDW 14.0 Plt Count 221 MPV 8.4 Neut # 3.8 Lymph # 1.5 [place] # 0.4 Eos # 0.1 Baso # 0.1 Absolute Nucleated RBC 0.00 Nucleated RBC % 0.0 Sodium 134 L Potassium 4.6 Chloride 106 Carbon Dioxide 23 Anion Gap 5.0 L BUN 57 H Creatinine 3.6 H Estimated GFR (MDRD) 20 L Glucose 227 H POC Whole Bld Glucose 203 H Calcium 8.9 Total Bilirubin 0.7 AST 17 ALT 34 Alkaline Phosphatase 84 B-Natriuretic Peptide Total Protein 7.8 Albumin 3.6 Globulin 4.2 Albumin/Globulin Ratio 0.9 L Urine Color Urine Clarity Urine pH Ur Specific [place] Urine Protein Urine Glucose (UA) Urine Ketones Urine Occult Blood Urine Nitrite Urine Bilirubin Urine Urobilinogen Ur Leukocyte Esterase Urine RBC Urine WBC Ur Squamous Epith Cells Urine Bacteria Urine Casts Ur Microscopic Review Urine Culture Comments 04/20/17 04/20/17 19:25 20:23 WBC RBC Hgb Hct MCV MCH MCHC RDW Plt Count MPV Neut # Lymph # [place] # Eos # Baso # Absolute Nucleated RBC Nucleated RBC % Sodium Potassium Chloride Carbon Dioxide Anion Gap BUN Creatinine Estimated GFR (MDRD) Glucose POC Whole Bld Glucose Calcium Total Bilirubin AST ALT Alkaline Phosphatase B-Natriuretic Peptide 77 Total Protein Albumin Globulin Albumin/Globulin Ratio Urine Color YELLOW Urine Clarity CLEAR Urine pH 6.0 Ur Specific [place] 1.020 Urine Protein >=300 Urine Glucose (UA) 500 H Urine Ketones NEGATIVE Urine Occult Blood SMALL H Urine Nitrite NEGATIVE Urine Bilirubin NEGATIVE Urine Urobilinogen 0.2 (NORMAL) Ur Leukocyte Esterase NEGATIVE Urine RBC 11-25 H Urine WBC 0-3 Ur Squamous Epith Cells FEW Squamous Urine Bacteria Rare Urine Casts 0-2 Hyaline Casts Ur Microscopic Review INDICATED Urine Culture Comments NOT INDICATED - Rads (name of study) chest Radiology: Prelim report reviewed, EMP read contemporaneously PD MEDICAL DECISION MAKING - ED course Complexity details: considered differential, d/w patient Departure - Departure Disposition: 01 Home, Self Care Clinical Impression: Dyspnea Qualifiers: Dyspnea type: shortness of breath Qualified Code(s): R06.02 - Shortness of breath Fatigue Qualifiers: Fatigue type: unspecified Qualified Code(s): R53.83 - Other fatigue Condition: Stable Record reviewed to determine appropriate education?: Yes Instructions: ED Dyspnea Shortness of Breath Follow-Up: VAZQUEZ PETERSON ARNP [Primary Care Provider] - Comments: Continue usual medications. Assume taking your iron supplements for the next few weeks to a month. Your blood tests appear normal here with the blood level somewhat low but in your common range. Your chest x-ray is clear. On prior testing your iron level was a little bit low and so that may be allowing persistent anemia. Discharge Date/Time: 04/20/17 20:59
[2017-04-20 20:28] LABS: BILIRUBIN,URINE NEGATIVE (NEGATIVE); GLUCOSE, URINE (UA) 500 mg/dL (NEGATIVE); KETONES,URINE (UA) NEGATIVE (NEGATIVE); LEUKOCYTE ESTERASE, URINE NEGATIVE (NEGATIVE); NITRITE,URINE NEGATIVE (NEGATIVE); OCCULT BLOOD,URINE SMALL (NEGATIVE); PROTEIN,URINE >=300 mg/dL (NEGATIVE); UROBILINOGEN,URINE 0.2 (NORMAL) E.U./dL (NORMAL)
--- NOTE | 2017-04-20 20:32 | XRAY Preliminary Report ---
Exam: XR CHEST 2 VIEW X-RAY IMPRESSION: Normal 2-view chest radiography. [facility] SITE ID: [id number]
--- NOTE | 2017-04-20 20:34 | XRAY Report ---
EXAM: CHEST RADIOGRAPHY EXAM DATE: 04/20/2017 08:14 PM. CLINICAL HISTORY: Blood transfusion 2 weeks ago. Productive cough for 2 weeks. Shortness of breath, w eakness. Left-sided chest pain. COMPARISON: 01/22/2017. TECHNIQUE: 2 views. FINDINGS: Lungs/Pleura: No focal opacities evident. No pleural effusion. No pneumothorax. Normal volumes. Mediastinum: Heart and mediastinal contours are unremarkable. Other: None. IMPRESSION: Normal 2-view chest radiography. [facility] Referring Provider Line: [phone] SITE ID: [id number]
[2017-04-20 20:38] LABS: CLARITY,URINE CLEAR (CLEAR)
[2017-04-20 20:39] LABS: BACTERIA,URINE Rare /HPF (None Seen); CASTS, URINE 0-2 Hyaline Casts /LPF; SQUAMOUS EPITHELIAL CELL,UR FEW Squamous (<= Few)
[2017-04-20 20:40] VITALS: BP 154/107
== END 2017-04-20 20:59 | disposition home or self-care (01) ==
LOC: ED 18:31
DX: R06.02 Shortness of breath (principal); R53.83 Other fatigue; I10 Essential (primary) hypertension; E10.9 Type 1 diabetes mellitus without complications; Z79.4 Long term (current) use of insulin; N28.9 Disorder of kidney and ureter, unspecified
CPT/HCPCS: 36415; 71046; 80053; 81001; 81003; 83880; 85025; 87086; 93005; 99283; 99284

== ENCOUNTER 2017-05-18 14:05 | Outpatient (CLI) | payer OTHER ==
[2017-05-18 14:59] LABS: CALCIUM 8.5 mg/dL (8.5-10.3); CREATININE 3.3 mg/dL (0.6-1.2)
[2017-05-18 15:21] LABS: FOLATE 12.34 ng/mL (5.90 - >24.8)
== END 2017-05-18 14:06 | disposition home or self-care (01) ==
LOC: LAB 14:05
PROVIDERS: ATTEND Internal Medicine Nephrology
DX: E11.21 Type 2 diabetes mellitus with diabetic nephropathy (principal); R80.9 Proteinuria, unspecified
CPT/HCPCS: 36415; 80048; 82607; 82746; 83540; 84466

== ENCOUNTER 2017-11-11 03:08 | Outpatient (CLI) | payer OTHER | END 2017-11-11 03:09 | disposition critical access hospital (66) | LOC: EMS 03:08 | PROVIDERS: ATTEND Surgery | DX: R11.2 Nausea with vomiting, unspecified (principal); R73.09 Other abnormal glucose | CPT/HCPCS: A0425; A0427 ==

== ENCOUNTER 2017-11-11 03:21 | Emergency (ER) | payer OTHER ==
[2017-11-11] MEDS ORDERED: LACTATED RINGERS 2,000 ML IV ONE (03:40)
[2017-11-11] MEDS ORDERED: PROMETHAZINE INJ 25 MG in SODIUM CHLORIDE 0.9% 50 ML IV STA (03:42)
[2017-11-11 03:49] LABS: VBG PCO2 22.3 mmHg (41-51); VBG PH 7.249 (7.31-7.41); VBG PO2 90.1 mmHg (25-47); VBG TOTAL CO2 10.2 mmol/L (24-29)
[2017-11-11 03:50] LABS: BASOPHILS # (AUTO) 0.1 10^3/uL (0.0-0.1); BASOPHILS % (AUTO) 0.7 %; EOSINOPHILS % (AUTO) 0.1 %; HGB - HEMOGLOBIN 9.3 g/dL (14.0-18.0); LYMPHOCYTES # (AUTO) 0.4 10^3/uL (1.5-3.5); LYMPHOCYTES % (AUTO) 3.4 %; MEAN CORPUSCULAR HEMOGLOBIN 30.9 pg (27.0-31.0); MEAN CORPUSCULAR VOLUME 96.5 fL (80.0-94.0); MEAN PLATELET VOLUME 11.1 fL (7.4-11.4); MONOCYTES # (AUTO) 0.5 10^3/uL (0.0-1.0); MONOCYTES % (AUTO) 4.5 %; NEUTROPHILS # (AUTO) 10.3 10^3/uL (1.5-6.6); NEUTROPHILS % (AUTO) 91.3 %; PLT - PLATELET COUNT 103 10^3/uL (130-450); RED BLOOD COUNT 3.02 10^6/uL (4.70-6.10); RED CELL DISTRIBUTION WIDTH 13.6 % (12.0-15.0); WHITE BLOOD COUNT 11.3 x10^3/uL (4.8-10.8)
[2017-11-11 03:55] LABS: KETONES, SERUM (ACETEST) SMALL (NEGATIVE)
[2017-11-11] MEDS ORDERED: INSULIN REGULAR HUMAN 100 UNIT/1 ML 10 ML MDV IVP STA (04:03)
[2017-11-11] MEDS ORDERED: INSULIN REGULAR HUMAN 100 UNIT in SODIUM CHLORIDE 0.9% 100ML 99 ML IV STA (04:16)
[2017-11-11] MEDS ORDERED: SODIUM BICARBONATE ABBOJECT 50 MEQ/50 ML SYRINGE IVP STA (04:16)
[2017-11-11 04:17] LABS: ALBUMIN 3.5 g/dL (3.2-5.5); ALBUMIN/GLOBULIN RATIO 1.1 (1.0-2.2); ALKALINE PHOSPHATASE 114 IU/L (42-121); ALT ALANINE AMINOTRANSFERASE 418 IU/L (10-60); AST ASPARTATE AMINOTRANSFERASE 686 IU/L (10-42); BILIRUBIN,TOTAL 1.2 mg/dL (0.2-1.0); CALCIUM 7.7 mg/dL (8.5-10.3); CHLORIDE 92 mmol/L (101-111); GFR - MDRD 9 (>89); LIPASE 49 U/L (22-51); SODIUM 124 mmol/L (135-145); TOTAL PROTEIN 6.6 g/dL (6.7-8.2)
[2017-11-11 04:18] LABS: CREATININE 7.1 mg/dL (0.6-1.2); GLUCOSE 1191 mg/dL (70-100)
[2017-11-11] MEDS ORDERED: CALCIUM GLUCONATE 1,000 MG in SODIUM CHLORIDE 0.9% 50 ML IV ONE (04:18)
[2017-11-11 04:20] LABS: BUN - BLOOD UREA NITROGEN 25 mg/dL (6-20)
[2017-11-11 04:22] LABS: INR 1.1 (0.8-1.2); PT - PROTHROMBIN TIME 11.9 secs (9.9-12.6)
[2017-11-11 04:24] LABS: CARBON DIOXIDE - CO2 6 mmol/L (21-32)
--- NOTE | 2017-11-11 04:49 | ED Physician Documentation ---
History of Present Illness - Stated complaint Stated Complaint: VOMITING - Chief complaint Chief Complaint: General - History obtained from History obtained from: Patient, EMS - Additonal information Additional information: 32-year-old male was brought to the emergency department for evaluation of nausea and vomiting. The patient is a type I diabetic and his glucose meter read high. The patient has an insulin pump. The patient denies any focal area of pain. Symptoms are described as severe. No specific triggering factors. No relieving factors Review of Systems Constitutional: reports: Fatigue Eyes: denies: Loss of vision Ears: denies: Ear pain Nose: denies: Foreign Body Throat: denies: Sore throat Cardiac: denies: Chest pain / pressure Respiratory: denies: Dyspnea GI: reports: Nausea, Vomiting, Hematemesis : denies: Dysuria Skin: denies: Rash Musculoskeletal: denies: Neck pain Neurologic: denies: Generalized weakness Endocrine: reports: Polydypsia PD PAST MEDICAL HISTORY - Past Medical History Past Medical History: Yes Cardiovascular: Hypertension Respiratory: None Endocrine/Autoimmune: Type 1 diabetes GI: None : Renal insuffiency HEENT: None Psych: None Musculoskeletal: None Derm: None - Past Surgical History Past Surgical History: Yes - Present Medications Home Medications: Ambulatory Orders Medication Instructions Recorded Confirmed Metoprolol Succinate [Toprol Xl] 150 mg PO BID #90 tab.er.24h 04/08/17 amLODIPine [Norvasc] 10 mg PO DAILY #60 tablet 04/08/17 Hydrochlorothiazide 12.5 mg PO DAILY 11/11/17 11/11/17 - Allergies Allergies/Adverse Reactions: Allergies Allergy/AdvReac Type Severity Reaction Status Date / Time clindamycin Allergy Rash Verified 11/11/17 03:32 vancomycin Allergy Rash Verified 11/11/17 03:32 hydralazine AdvReac Emesis Verified 11/11/17 03:32 - Social History Does the pt smoke?: No Smoking Status: Never smoker Does the pt drink ETOH?: No Does the pt have substance abuse?: No - Immunizations Immunizations are current?: Yes - POLST Patient has POLST: No PD ED PE NORMAL - General General: Other (32-year-old male who appears acutely ill and uncomfortable) - HEENT HEENT: Atraumatic, PERRL, EOMI, Ears normal, Other (Dry mucous membranes) - Cardiac Cardiac: RRR - Respiratory Respiratory: Clear bilaterally, Other - Abdomen Abdomen: Soft, Non tender - Derm Derm: Normal color - Extremities Extremities: No deformity, No edema - Neuro Neuro: Alert and oriented X 3, Normal speech PD ED PE EXPANDED - Psych Psych: Withdrawn Results - Vitals Vitals: Vital Signs - 24 hr 11/11/17 11/11/17 11/11/17 03:21 03:49 04:03 Temperature 37 C Heart Rate 90 82 91 Respiratory 18 24 13 Rate Blood Pressure 158/89 H 161/87 H 132/65 H O2 Saturation 100 100 100 11/11/17 11/11/17 04:30 05:34 Temperature Heart Rate 96 99 Respiratory 17 12 Rate Blood Pressure 143/72 H 176/95 H O2 Saturation 99 96 Oxygen O2 Source Room air - EKG (time done) 04:22 Rate: Rate (enter#) Rhythm: NSR Intervals: Normal PA, Prolonged QT, QRS normal Ischemia: Normal ST segments, Hyperacute T waves Other comments: Other comments - Labs Labs: Laboratory Tests 11/11/17 11/11/17 11/11/17 03:40 03:40 03:40 WBC 11.3 H RBC 3.02 L Hgb 9.3 L Hct 29.1 L MCV 96.5 H MCH 30.9 MCHC 32.0 RDW 13.6 Plt Count 103 L MPV 11.1 Neut # (Auto) 10.3 H Lymph # (Auto) 0.4 L [place] # (Auto) 0.5 Eos # (Auto) 0.0 Baso # (Auto) 0.1 Absolute Nucleated RBC 0.00 Nucleated RBC % 0.0 PT INR APTT VBG pH VBG pCO2 VBG pO2 VBG HCO3 VBG Total CO2 VBG O2 Saturation VBG Base Excess Sodium 124 L Potassium 6.0 H* Chloride 92 L Carbon Dioxide 6 L* Anion Gap 26.0 H BUN 25 H Creatinine 7.1 H* Estimated GFR (MDRD) 9 L Glucose 1191 H* Calcium 7.7 L Total Bilirubin 1.2 H AST 686 H ALT 418 H Alkaline Phosphatase 114 CK-MB (CK-2) 26.0 H Total Protein 6.6 L Albumin 3.5 Globulin 3.1 Albumin/Globulin Ratio 1.1 Lipase 49 Ethyl Alcohol Serum Ketones SMALL H 11/11/17 11/11/17 11/11/17 03:40 03:40 03:40 WBC RBC Hgb Hct MCV MCH MCHC RDW Plt Count MPV Neut # (Auto) Lymph # (Auto) [place] # (Auto) Eos # (Auto) Baso # (Auto) Absolute Nucleated RBC Nucleated RBC % PT 11.9 INR 1.1 APTT 22.9 L VBG pH 7.249 L VBG pCO2 22.3 L VBG pO2 90.1 H VBG HCO3 9.5 L VBG Total CO2 10.2 L VBG O2 Saturation 95.7 H VBG Base Excess -16.0 L Sodium Potassium Chloride Carbon Dioxide Anion Gap BUN Creatinine Estimated GFR (MDRD) Glucose Calcium Total Bilirubin AST ALT Alkaline Phosphatase CK-MB (CK-2) Total Protein Albumin Globulin Albumin/Globulin Ratio Lipase Ethyl Alcohol < 5.0 Serum Ketones 11/11/17 05:00 WBC RBC Hgb Hct MCV MCH MCHC RDW Plt Count MPV Neut # (Auto) Lymph # (Auto) [place] # (Auto) Eos # (Auto) Baso # (Auto) Absolute Nucleated RBC Nucleated RBC % PT INR APTT VBG pH VBG pCO2 VBG pO2 VBG HCO3 VBG Total CO2 VBG O2 Saturation VBG Base Excess Sodium 130 L Potassium 5.0 Chloride 96 L Carbon Dioxide 13 L Anion Gap 21.0 H BUN 125 H* Creatinine 6.8 H Estimated GFR (MDRD) 10 L Glucose 1070 H* Calcium 7.5 L Total Bilirubin AST ALT Alkaline Phosphatase CK-MB (CK-2) Total Protein Albumin Globulin Albumin/Globulin Ratio Lipase Ethyl Alcohol Serum Ketones PD MEDICAL DECISION MAKING - ED course ED course: The patient is in severe DKA and has acute on chronic renal failure. The patient recently had a AV fistula placed in anticipation for dialysis. Since, the patient is in acute renal failure he will most likely require dialysis and transfer to a center that can manage his care. The patient normally sees nephrology at the [facility] but they do not have any ICU beds available. The patient health insurance company [employer] was contacted and they have arranged for transfer to [facility] where they will be able to manage his DKA and acute renal failure. The patient was resuscitated with IV fluids, IV insulin, sodium bicarbonate, calcium gluconate and insulin drip. The patient will require ongoing management and probable dialysis. The findings and plan were discussed the patient who understands and agrees - Critical Care Time(min): 35 Time Includes: Direct patient care, Review records, Document care, Coordinate care Data interpretation: Labs Procedures included in critical care time: Blood draw - Sepsis Event Vital Signs: Vital Signs - 24 hr 11/11/17 11/11/17 11/11/17 03:21 03:49 04:03 Temperature 37 C Heart Rate 90 82 91 Respiratory 18 24 13 Rate Blood Pressure 158/89 H 161/87 H 132/65 H O2 Saturation 100 100 100 11/11/17 11/11/17 04:30 05:34 Temperature Heart Rate 96 99 Respiratory 17 12 Rate Blood Pressure 143/72 H 176/95 H O2 Saturation 99 96 Oxygen O2 Source Room air Departure - Departure Disposition: 02 Transfer Acute Care Hosp Clinical Impression: Uremic acidosis DKA (diabetic ketoacidoses) Qualifiers: Diabetes mellitus type: due to underlying condition Diabetes mellitus complication detail: without coma Qualified Code(s): E08.10 - Diabetes mellitus due to underlying condition with ketoacidosis without coma Acute renal failure Qualifiers: Acute renal failure type: unspecified Qualified Code(s): N17.9 - Acute kidney failure, unspecified Condition: Critical
[2017-11-11 05:18] LABS: CALCIUM 7.5 mg/dL (8.5-10.3); CREATININE 6.8 mg/dL (0.6-1.2)
[2017-11-11] MEDS ORDERED: SODIUM CHLORIDE 0.9% 1,000 ML IV SCH (05:37)
[2017-11-11 06:11] VITALS: BP 182/94
== END 2017-11-11 06:19 | disposition short-term general hospital (02) ==
LOC: EDUNIT# → ED 03:21
DX: E08.10 Diabetes mellitus due to underlying condition with ketoacidosis without coma (principal); N17.9 Acute kidney failure, unspecified; I10 Essential (primary) hypertension; Z96.41 Presence of insulin pump (external) (internal)
CPT/HCPCS: 36415; 80048; 80053; 80320; 82009; 82553; 82803; 82947; 83690; 85025; 85610; 85730; 93005; 96365; 96367; 96375; 99284; 99291; J1815; J7040; J7120

== ENCOUNTER 2017-11-11 06:21 | Outpatient (CLI) | payer OTHER | END 2017-11-11 06:22 | disposition short-term general hospital (02) | LOC: EMS 06:21 | PROVIDERS: ATTEND Surgery | DX: E11.10 Type 2 diabetes mellitus with ketoacidosis without coma (principal); N17.9 Acute kidney failure, unspecified | CPT/HCPCS: A0425; A0427 ==

== ENCOUNTER 2018-01-20 22:37 | Inpatient (IN) | payer OTHER ==
--- NOTE | 2018-01-20 23:19 | ED Physician Documentation ---
PD HPI LOWER EXT INJURY - Stated complaint Stated Complaint: R LEG SWELLING/FALL - Chief complaint Chief Complaint: Trauma Ext - History obtained from History obtained from: Patient, Family - History of Present Illness PD HPI LOW EXT INJURY LOCATION: Right, Upper leg, Knee, Lower leg Type of injury: Fall Where injury occurred: Home Timing - onset: How many days ago (5) Timing - duration: Days (5) Timing - details: Gradual onset Pain level max: 6 Pain level now: 6 Improved by: Rest, Ice, Immobilization Worsened by: Moving, Palpating, Other (walking) Associated symptoms: Swelling. No: Weakness, Numbness, Tingling, Discolored Contributing factors: No: Anticoagulated, Prior ortho surgery, Prosthetic joint Recently seen: Not recently seen - Additional information Additional information: Patient is a 32-year-old male with a history of diabetes, stage V chronic kidney disease and hypertension. He states that he tripped and fell landing on his right leg several days ago at home. Increasing swelling and pain since that time. Review of Systems Ten Systems: 10 systems reviewed and negative Constitutional: denies: Fever, Chills Ears: denies: Ear pain Nose: reports: Rhinorrhea / runny nose, Congestion Throat: denies: Sore throat Cardiac: denies: Chest pain / pressure Respiratory: reports: Cough (dry). denies: Hemoptysis, Wheezing GI: denies: Vomiting, Diarrhea Skin: denies: Rash Musculoskeletal: denies: Neck pain, Back pain PD PAST MEDICAL HISTORY - Past Medical History Past Medical History: Yes Cardiovascular: Hypertension Respiratory: None Neuro: None Endocrine/Autoimmune: Type 1 diabetes GI: None : Renal insuffiency HEENT: None Psych: None Musculoskeletal: None Derm: None - Past Surgical History Past Surgical History: Yes - Present Medications Home Medications: Ambulatory Orders Medication Instructions Recorded Confirmed Metoprolol Succinate [Toprol Xl] 150 mg PO BID #90 tab.er.24h 04/08/17 01/21/18 Hydrochlorothiazide 12.5 mg PO DAILY 11/11/17 01/21/18 Citalopram Hydrobromide [Celexa] 1 tab PO DAILY 01/21/18 01/21/18 Furosemide 1 tab PO DAILY 01/21/18 01/21/18 - Allergies Allergies/Adverse Reactions: Allergies Allergy/AdvReac Type Severity Reaction Status Date / Time clindamycin Allergy Rash Verified 01/20/18 22:49 vancomycin Allergy Rash Verified 01/20/18 22:49 hydralazine AdvReac Emesis Verified 01/20/18 22:49 - Social History Does the pt smoke?: No Smoking Status: Never smoker Does the pt drink ETOH?: No Does the pt have substance abuse?: No - Immunizations Immunizations are current?: Yes - POLST Patient has POLST: No PD ED PE NORMAL - Vitals Vital signs reviewed: Yes - General General: Alert and oriented X 3, No acute distress, Well developed/nourished - HEENT HEENT: Ears normal, Moist mucous membranes, Pharynx benign, Dentition benign - Neck Neck: Supple, no meningeal sign - Cardiac Cardiac: RRR, Strong equal pulses - Respiratory Respiratory: No respiratory distress, Clear bilaterally - Abdomen Abdomen: Soft, Non tender, Non distended - Back Back: No spinal TTP - Derm Derm: Warm and dry - Extremities Extremities: Other (R LE - 2+ pitting edema RLE diffusely. TTP over the entire leg, hip to ankle. NVI.) - Neuro Neuro: Alert and oriented X 3 Results - Vitals Vitals: Vital Signs - 24 hr 01/20/18 01/20/18 01/21/18 22:47 23:51 01:02 Temperature 36.7 C 36.8 C Heart Rate 90 93 94 Respiratory 18 18 18 Rate Blood Pressure 198/96 H 206/96 H 205/99 H O2 Saturation 100 100 100 01/21/18 01:47 Temperature 37.1 C Heart Rate 93 Respiratory 16 Rate Blood Pressure 117/89 H O2 Saturation 99 Oxygen O2 Source Room air - Labs Labs: Laboratory Tests 01/20/18 01/20/18 01/20/18 23:15 23:15 23:59 WBC 9.2 RBC 2.63 L Hgb 8.1 L Hct 24.9 L MCV 94.9 H MCH 31.0 MCHC 32.7 RDW 14.7 Plt Count 286 MPV 9.2 Neut # (Auto) 7.9 H Lymph # (Auto) 0.5 L Teller # (Auto) 0.6 Eos # (Auto) 0.2 Baso # (Auto) 0.1 Absolute Nucleated RBC 0.00 Nucleated RBC % 0.0 VBG pH VBG pCO2 VBG pO2 VBG HCO3 VBG Total CO2 VBG O2 Saturation VBG Base Excess Sodium 131 L Potassium 3.8 Chloride 98 L Carbon Dioxide 17 L Anion Gap 16.0 H BUN 112 H* Creatinine 8.0 H* Estimated GFR (MDRD) 8 L Glucose 576 H* POC Whole Bld Glucose Calcium 7.5 L Total Bilirubin 0.5 AST 12 ALT 25 Alkaline Phosphatase 96 Total Protein 7.0 Albumin 2.6 L Globulin 4.4 H Albumin/Globulin Ratio 0.6 L Lipase 40 Urine Color Urine Clarity Urine pH Ur Specific [place] Urine Protein Urine Glucose (UA) Urine Ketones Urine Occult Blood Urine Nitrite Urine Bilirubin Urine Urobilinogen Ur Leukocyte Esterase Urine RBC Urine WBC Ur Squamous Epith Cells Urine Bacteria Urine Casts Ur Microscopic Review Urine Culture Comments Serum Ketones NEGATIVE 01/20/18 01/21/18 01/21/18 23:59 00:45 01:34 WBC RBC Hgb Hct MCV MCH MCHC RDW Plt Count MPV Neut # (Auto) Lymph # (Auto) Teller # (Auto) Eos # (Auto) Baso # (Auto) Absolute Nucleated RBC Nucleated RBC % VBG pH 7.348 VBG pCO2 30.6 L VBG pO2 47.2 H VBG HCO3 16.4 L VBG Total CO2 17.4 L VBG O2 Saturation 83.8 H VBG Base Excess -8.3 L Sodium Potassium Chloride Carbon Dioxide Anion Gap BUN Creatinine Estimated GFR (MDRD) Glucose POC Whole Bld Glucose 501 H* Calcium Total Bilirubin AST ALT Alkaline Phosphatase Total Protein Albumin Globulin Albumin/Globulin Ratio Lipase Urine Color YELLOW Urine Clarity CLEAR Urine pH 6.0 Ur Specific [place] 1.020 Urine Protein 100 H Urine Glucose (UA) >=1000 H Urine Ketones NEGATIVE Urine Occult Blood MODERATE H Urine Nitrite NEGATIVE Urine Bilirubin NEGATIVE Urine Urobilinogen 0.2 (NORMAL) Ur Leukocyte Esterase NEGATIVE Urine RBC 11-25 H Urine WBC 0-3 Ur Squamous Epith Cells NONE SEEN Urine Bacteria Rare Urine Casts 6-10 Hyaline Casts Ur Microscopic Review INDICATED Urine Culture Comments NOT INDICATED Serum Ketones - Rads (name of study) R femur xray Radiology: Prelim report reviewed, EMP read contemporaneously, See rad report (No acute fracture or dislocation seen. Soft tissue swelling and knee joint effusion. Consider follow-up MRI of the knee. ) R knee xray Radiology: Prelim report reviewed, EMP read contemporaneously, See rad report (No acute fracture or dislocation seen. Soft tissue swelling and joint effusion. Consider MRI follow-up. ) R tib/fib xray Radiology: Prelim report reviewed, EMP read contemporaneously, See rad report (No acute fracture or dislocation seen. Soft tissue swelling and knee joint effusion. Consider follow-up MRI of the need for further evaluation. ) RLE US Radiology: Prelim report reviewed, EMP read contemporaneously, See rad report (No evidence for deep venous thrombosis. Some areas are poorly seen due to patient pain and swelling. Popliteal fossa cyst versus hematoma measuring 3.3 x 3.7 cm. Subcutaneous edema. ) chest xray Radiology: Prelim report reviewed, EMP read contemporaneously, See rad report (Patchy upper lobe infiltrates, right worse than left, with trace pleural effusions. Suspect pneumonia. Recommend radiographic follow-up to show resolution. ) PD MEDICAL DECISION MAKING - ED course Complexity details: reviewed results, re-evaluated patient, considered differential, d/w patient, d/w product development consultant (0120 - Dr. Joaquin (nephrology at , recommends obs for IVF and insulin. If not improved in am recontact for further care)) ED course: Patient is a 32-year-old male who presents to the emergency department with right lower extremity swelling after a fall. He is unable to tolerate ligamentous exam of the knee very well secondary to swelling. No acute findings on x-rays of the knee other than subcutaneous edema and joint effusion versus hematoma. Neurovascularly intact. Good pedal pulses bilaterally as well as posterior tibial pulses. Brisk cap refill. No acute findings on x-rays of the tib-fib or femur. Chest x-ray shows bilateral infiltrates. Will treat for pneumonia. Given his hyperglycemia and acute on chronic renal failure, discussed the case with [facility] nephrology on-call who recommends IV fluids, insulin and observation overnight. If not doing well in the morning would recontact [facility]. Discussed case with Dr. Marquez and will admit. This document was made in part using voice recognition software. While efforts are made to proofread this document, sound alike and grammatical errors may occur. Will likely need MRI of the knee as an outpatient and full exam by ortho when swelling is decreased. Departure - Departure Disposition: ED Place in Observation Clinical Impression: Hyperglycemia, Dehydration [id number] renal failure Qualifiers: Acute renal failure type: unspecified Chronic kidney disease stage: stage 5, n ot on chronic dialysis Qualified Code(s): N17.9 - Acute kidney failure, unspecified; N18.5 - Chronic kidney disease, stage 5 Pneumonia Qualifiers: Pneumonia type: due to unspecified organism Laterality: bilateral Lung location: upper lobe of lung Qualified Code(s): J18.1 - Lobar pneumonia, unspecified organism Traumatic hematoma of right knee Qualifiers: Encounter type: initial encounter Qualified Code(s): S80.01XA - Contusion of right knee, initial encounter Knee internal derangement Qualifiers: Laterality: right Qualified Code(s): M23.91 - Unspecified internal derangement of right knee Condition: Stable
[2018-01-20 23:21] LABS: BASOPHILS # (AUTO) 0.1 10^3/uL (0.0-0.1); BASOPHILS % (AUTO) 0.7 %; EOSINOPHILS # (AUTO) 0.2 10^3/uL (0.0-0.7); EOSINOPHILS % (AUTO) 1.9 %; HGB - HEMOGLOBIN 8.1 g/dL (14.0-18.0); LYMPHOCYTES # (AUTO) 0.5 10^3/uL (1.5-3.5); LYMPHOCYTES % (AUTO) 5.5 %; MEAN CORPUSCULAR HGB CONC 32.7 g/dL (32.0-36.0); MEAN CORPUSCULAR VOLUME 94.9 fL (80.0-94.0); MEAN PLATELET VOLUME 9.2 fL (7.4-11.4); MONOCYTES # (AUTO) 0.6 10^3/uL (0.0-1.0); MONOCYTES % (AUTO) 6.5 %; NEUTROPHILS # (AUTO) 7.9 10^3/uL (1.5-6.6); NEUTROPHILS % (AUTO) 85.4 %; PLT - PLATELET COUNT 286 10^3/uL (130-450); RED BLOOD COUNT 2.63 10^6/uL (4.70-6.10); RED CELL DISTRIBUTION WIDTH 14.7 % (12.0-15.0); WHITE BLOOD COUNT 9.2 x10^3/uL (4.8-10.8)
[2018-01-20 23:53] LABS: ALBUMIN 2.6 g/dL (3.2-5.5); ALBUMIN/GLOBULIN RATIO 0.6 (1.0-2.2); BILIRUBIN,TOTAL 0.5 mg/dL (0.2-1.0); CALCIUM 7.5 mg/dL (8.5-10.3)
--- NOTE | 2018-01-21 00:04 | Ultrasound Report ---
Reason: RLE swelling s/p fall Procedure Date: 01/20/2018 Accession Number: [id number] / [id number] Procedure: US - Duplex Ext Veins Right CPT Code: FULL RESULT: EXAM: RIGHT LOWER EXTREMITY VENOUS ULTRASOUND EXAM DATE: 01/20/2018 11:21 PM. CLINICAL HISTORY: RLE swelling s/p fall. COMPARISON: None. TECHNIQUE: Real-time sonographic vascular imaging was performed by the campaign assistant through the lower extremity utilizing both color-flow and Doppler spectral analysis. Multiple delivery representative static images were saved for review. FINDINGS: Common Femoral Vein (CFV): Normal. CFV-GSV Junction: Normal. Profunda Femoral Vein (PFV): Normal. Femoral Vein (FV) Prox: Normal. Femoral Vein (FV) Mid: Normal. Femoral Vein (FV) Dist: Suboptimally seen. No DVT identified. Popliteal Vein: Suboptimally seen. No DVT identified. Posterior Tibial Veins: Suboptimally seen. No DVT identified. Peroneal Veins: Poorly seen. Other: Right inguinal lymph node measuring 4.4 x 1.2 cm. Extensive subcutaneous edema. Popliteal fossa cyst versus hematoma measuring 3.3 x 3.7 cm. IMPRESSION: 1. No evidence for deep venous thrombosis. Some areas are poorly seen due to patient pain and swelling. 2. Popliteal fossa cyst versus hematoma measuring 3.3 x 3.7 cm. 3. Subcutaneous edema. RADIA
[2018-01-21 00:10] LABS: VBG BASE EXCESS -8.3 mmol/L (-2 - +2); VBG PCO2 30.6 mmHg (41-51); VBG PH 7.348 (7.31-7.41); VBG PO2 47.2 mmHg (25-47); VBG TOTAL CO2 17.4 mmol/L (24-29)
[2018-01-21] MEDS ORDERED: SODIUM CHLORIDE 0.9% 1,000 ML IV ONE ×2 (00:21→01:14)
[2018-01-21] MEDS ORDERED: INSULIN REGULAR HUMAN 100 UNIT/1 ML 10 ML MDV SUBQ STA (00:40)
[2018-01-21 00:48] LABS: BILIRUBIN,URINE NEGATIVE (NEGATIVE); GLUCOSE, URINE (UA) >=1000 mg/dL (NEGATIVE); KETONES,URINE (UA) NEGATIVE (NEGATIVE); LEUKOCYTE ESTERASE, URINE NEGATIVE (NEGATIVE); NITRITE,URINE NEGATIVE (NEGATIVE); OCCULT BLOOD,URINE MODERATE (NEGATIVE); PROTEIN,URINE 100 mg/dL (NEGATIVE); UROBILINOGEN,URINE 0.2 (NORMAL) E.U./dL (NORMAL)
[2018-01-21 00:50] LABS: CLARITY,URINE CLEAR (CLEAR)
--- NOTE | 2018-01-21 00:57 | XRAY Report ---
Reason: RLE swelling s/p fall, TTP about the knee Procedure Date: 01/21/2018 Accession Number: [id number] / [id number] Procedure: XR - Knee 4 View RT CPT Code: FULL RESULT: EXAM: RIGHT KNEE RADIOGRAPHY EXAM DATE: 01/21/2018 12:04 AM. CLINICAL HISTORY: RLE swelling s/p fall, TTP about the knee. COMPARISON: FEMUR 2V RT 01/21/2018 12:04 AM LEG LOWER RT 01/21/2018 12:04 AM. TECHNIQUE: 4 views. FINDINGS: Bones: No acute fracture seen. Joints: No dislocation. Joint spaces appear intact. Joint effusion is seen. Soft Tissues: Soft tissue swelling. IMPRESSION: 1. No acute fracture or dislocation seen. 2. Soft tissue swelling and joint effusion. Consider MRI follow-up. RADIA
--- NOTE | 2018-01-21 00:58 | XRAY Report ---
Reason: RLE swelling s/p fall, TTP tibia Procedure Date: 01/21/2018 Accession Number: [id number] / [id number] Procedure: XR - Tib/Fib RT CPT Code: FULL RESULT: EXAM: RIGHT TIBIA/FIBULA RADIOGRAPHY EXAM DATE: 01/21/2018 12:04 AM. CLINICAL HISTORY: RLE swelling s/p fall, TTP tibia. COMPARISON: None. TECHNIQUE: 2 views. FINDINGS: Bones: No acute fracture seen. Joints: No dislocation. Joint spaces appear intact. Knee joint effusion. Soft Tissues: Soft tissue swelling. IMPRESSION: 1. No acute fracture or dislocation seen. 2. Soft tissue swelling and knee joint effusion. Consider follow-up MRI of the need for further evaluation. RADIA
--- NOTE | 2018-01-21 00:59 | XRAY Report ---
Reason: RLE swelling s/p fall, thigh TTP Procedure Date: 01/21/2018 Accession Number: [id number] / [id number] Procedure: XR - Femur 2V RT CPT Code: FULL RESULT: EXAM: RIGHT FEMUR RADIOGRAPHY EXAM DATE: 01/21/2018 12:04 AM. CLINICAL HISTORY: RLE swelling s/p fall, thigh TTP. COMPARISON: None. TECHNIQUE: 2 views. FINDINGS: Bones: No acute fracture seen. Joints: No dislocation. Joint spaces appear intact. Knee joint effusion. Soft Tissues: Soft tissue swelling. IMPRESSION: 1. No acute fracture or dislocation seen. 2. Soft tissue swelling and knee joint effusion. Consider follow-up MRI of the knee. RADIA
--- NOTE | 2018-01-21 01:00 | XRAY Report ---
Reason: cough, chills, diabetic Procedure Date: 01/21/2018 Accession Number: [id number] / [id number] Procedure: XR - Chest 2 View X-Ray CPT Code: 62221 FULL RESULT: EXAM: CHEST RADIOGRAPHY EXAM DATE: 01/21/2018 12:04 AM. CLINICAL HISTORY: Cough, chills, diabetic. COMPARISON: XR ABDOMEN ACUTE ABDOMEN SERIES 11/11/2017 6:06 PM. TECHNIQUE: 2 views. FINDINGS: Lungs/Pleura: Patchy upper lobe infiltrates, right worse than left. Trace pleural effusions. No pneumothorax. Mediastinum: Heart and mediastinal contours are unremarkable. Other: None. IMPRESSION: 1. Patchy upper lobe infiltrates, right worse than left, with trace pleural effusions. Suspect pneumonia. 2. Recommend radiographic follow-up to show resolution. RADIA
[2018-01-21 01:02] LABS: BACTERIA,URINE Rare /HPF (None Seen); CASTS, URINE 6-10 Hyaline Casts /LPF; SQUAMOUS EPITHELIAL CELL,UR NONE SEEN (<= Few)
[2018-01-21] MEDS ORDERED: MORPHINE 2 MG/ML CARPUJECT IVP STA (01:42)
[2018-01-21] MEDS ORDERED: AZITHROMYCIN INJ 500 MG in SODIUM CHLORIDE 0.9% 250 ML IV STA (02:03)
[2018-01-21] MEDS ORDERED: cefTRIAXone 1 GM VIAL IVP STA (02:03)
[2018-01-21] MEDS ORDERED: ONDANSETRON ODT 4 MG TABLET TL STA (02:03)
[2018-01-21] MEDS ORDERED: PROCHLORPERAZINE 10 MG/2 ML VIAL IVP PRN (03:01)
--- NOTE | 2018-01-21 03:13 | HISTORY & PHYSICAL EXAMINATION ---
Chief Complaint - Chief Complaint Chief Complaint: he came in of R leg pain p fall History of Present Illness - Admitted From Admitted From:: ER/Home - History Obtained From Records Reviewed: [facility] History obtained from: Patient and Dr. Aly Exam Limitations: pat is sleepy, angry, doesnt want to be here - History of Present Illness HPI Comment/Other: He has Stage V CKD from uncontrolled DM and HTN and is about to get a fistula to prepare for the near inevitability of dialysis. He was last admitted 03/2017 bc of cough but was found to only have a URI. But his gluocse was uncontrolled and his creat was sharply elevated. He was also noted to have anemia of chronic ciesease and needed transfusion for a hgb of 6. Since then, there have a few encounters in the ER for nausea. Tonight he came in he thought his leg was broken. He had fallen 5-6 days ago and hurt his fight tib fib area and it is painful to weight bear. His pain is from the groin and down to the foot. If he stays off of it with RICE it improves, but once he's, up it hurts. So he came to the ER for eval and was found not to have a fx but his glucose was 500's, and his creat was now 8. Dr. Aly spoke to his nephrology cosmetic surgeon and they feel he can be treated here for his glucose and the pneumonia we see on CXR (ROS is negative for cough, fever, chills, chest congestion). If his creat rises further tomorrow, they request he be transferred then. He has retinopathy, neuropathy but denies any chronic lung disease or heart disease. History - Past Medical History Cardiovascular: reports: Hypertension Respiratory: reports: None Neuro: reports: Peripheral neuropathy Endocrine/Autoimmune: reports: Type 1 diabetes GI: reports: None : reports: Renal insuffiency HEENT: reports: Chronic vision loss Psych: reports: Anxiety Musculoskeletal: reports: Other (s/p partial amputation of left foot for PVD) Derm: reports: None MRSA Hx?: No - Past Surgical History Ortho: reports: Amputation - Family & Social History Family History Comment/Other: Mom is in her 50's and healthy. DAd is same. no siblings w cancer, dm CAD. daughter is healthy Living arrangement: At home Living Situation: With spouse/s.o. Social History Notes: He denies recreational substance abuse. No tobacco use. Rarely drinks but did do pizza and beer last week. 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 Adamant that he will leave to go to work on Monday. - Substance History Use: Uses substance without health or social issues: NONE Abuse: Recurrent use of substance despite neg consequences: NONE - POLST Patient has POLST: No POLST Status: Full Code Meds/Allgy - Home Medications Home Medications: Ambulatory Orders Medication Instructions Recorded Confirmed Metoprolol Succinate [Toprol Xl] 150 mg PO BID #90 tab.er.24h 04/08/17 01/21/18 Hydrochlorothiazide 12.5 mg PO DAILY 11/11/17 01/21/18 Citalopram Hydrobromide [Celexa] 1 tab PO DAILY 01/21/18 01/21/18 Furosemide 1 tab PO DAILY 01/21/18 01/21/18 - Allergies Allergies/Adverse Reactions: Allergies Allergy/AdvReac Type Severity Reaction Status Date / Time clindamycin Allergy Rash Verified 01/20/18 22:49 vancomycin Allergy Rash Verified 01/20/18 22:49 hydralazine AdvReac Emesis Verified 01/20/18 22:49 Review of Systems - Constitutional Constitutional: reports: Fatigue. denies: Chills, Weakness, Poor appetite, Diaphoresis - Eyes Eyes: reports: Blurred vision, Spots in vision, Vision loss. denies: Pain, Irritation, Amaurosis - Ears, Nose & Throat Ears, Nose & Throat: denies: Ear pain, Hearing loss, Hearing aids, Nasal obstruction, Nasal congestion, Postnasal drainage, Sore throat, Hoarseness - Cardiovascular Cariovascular: denies: Irregular heart rate, Palpitations, Chest pain, Exertional dyspnea, Decr. exercise tolerance - Respiratory Respiratory: denies: Cough, Sputum production, Wheezing, Snoring - Gastrointestinal Gastrointestinal: denies: Abdominal pain, Abdominal distention, Diarrhea, Nausea, Vomiting - Genitourinary Genitourinary: denies: Dysuria, Frequency, Urgency - Musculoskeletal Musculoskeletal: reports: Back pain, Muscle aches. denies: Muscle pain, Stiffness - Integumentary Integumentary: denies: Rash, Lesions, Pigment changes - Neurological Neurological: denies: General weakness, Focal weakness, Headache, Seizures - Psychiatric Psychiatric: reports: Depression, Anxiety - Endocrine Endocrine: denies: Polyuria, Polydypsia, Polyphagia - Hematologic/Lymphatic Hematologic/Lymphatic: reports: Anemia. denies: Bruising, Petechiae Prior Level of Functionality: independent with ADL's, drives, Exam - Vital Signs Reviewed Vital Signs: Yes Vital Signs: Vital Signs x48h Temp Pulse Resp BP Pulse Ox 01/21/18 02:24 36.8 C 91 18 165/89 H 98 01/21/18 01:47 37.1 C 93 16 117/89 H 99 01/21/18 01:02 94 18 205/99 H 100 01/20/18 23:51 36.8 C 93 18 206/96 H 100 01/20/18 22:47 36.7 C 90 18 198/96 H 100 - Physical Exam General Appearance: positive: No acute distress, Other (sleepy and annoyed. Keeps on stating that he will leave to work on Monday. Bearded white male wearing glasses and looks stated age.) Eyes Bilateral: positive: PERRL, EOMI ENT: positive: Dry mucous membranes Neck: positive: No JVD. negative: Stiff neck, Carotid bruit Respiratory: positive: Chest non-tender, No respiratory distress, Rhonchi. negative: Wheezes, Rales Cardiovascular: positive: Regular rate & rhythm. negative: Systolic murmur, Gallop/S4, Friction rub Peripheral Pulses: positive: 0 Abdomen: positive: Non-tender, No organomegaly, Nml bowel sounds, No distention Skin: positive: Warm, Dry Extremities: positive: Full ROM, Other (RLE w brusing and edema, LLE with partial distal amp of toes) Neurologic/Psychiatric: positive: Oriented x3, CN's nml (2-12), Motor nml. negative: Sensation nml (neuropathy) Conclusion/Plan - Problem List (1) Ewzov-dy-obcpszo renal failure Conclusion/Plan: long time coming for him. Creat steadily rising for 2 years. Now getting prepared for dialysis. Today's labs were an incidental finding and not what he came in for. He thought his leg was fractured. Dr. Aly has spoke to nephrolog y and patient is to be admitted here. If he responds then their paln for him will continue. If he doesn't respond, then will need transfer to for emergent dialysis. Plan: admit inpaitnet status trat pneunmonia w abx. treat BUN/creat w IVF repeat BMP in am. Qualifiers: Acute renal failure type: unspecified Chronic kidney disease stage: stage 5, not on chronic dialysis Qualified Code(s): N17.9 - Acute kidney failure, unspecified; N18.5 - Chronic kidney disease, stage 5 (2) Type 1 diabetes mellitus Conclusion/Plan: with hyperglycemia. Uncontrolled. Plan: insulin pump is off starty lantus SS ac tid w 3 carb diet. Qualifiers: Diabetes mellitus complication status: with neurologic complications Diabetes mellitus complication detail: with polyneuropathy Qualified Code(s): E10.42 - Type 1 diabetes mellitus with diabetic polyneuropathy (3) Pneumonia Conclusion/Plan: seen on CXR and he does have rhonchi that are mild but no hypoxia, no resp distress and he is comfortable from a respiratory perspective. Plan: rocephin and azithromycin Qualifiers: Pneumonia type: due to unspecified organism Laterality: bilateral Lung location: upper lobe of lung Qualified Code(s): J18.1 - Lobar pneumonia, unspecified organism (4) Anemia in chronic kidney disease Conclusion/Plan: No transfusion needed at this time recheck CBC in am to see if drops in response to IVF and IV abx. Transfuse if needed. Qualifiers: Chronic kidney disease stage: stage 5, not on chronic dialysis Qualified Code(s): N18.5 - Chronic kidney disease, stage 5; D63.1 - Anemia in chronic kidney disease (5) HTN (hypertension) Conclusion/Plan: resume his beta cm. norvasc added Qualifiers: Hypertension type: secondary to other renal disorders Qualified Code(s): I15.1 - Hypertension secondary to other renal disorders; N28.89 - Other specified disorders of kidney and ureter; N28.89 - Other specified disorders of kidney and ureter (6) Right leg pain Conclusion/Plan: from his fall 6 days ago. no fracture. continue RICE. - Lab Results Fish Bones: 01/21/18 06:20 01/21/18 06:20 Other Lab Results: Laboratory Tests 01/20/18 01/20/18 01/20/18 23:15 23:15 23:59 WBC 9.2 Hgb 8.1 L Hct 24.9 L Plt Count 286 VBG pH VBG pCO2 VBG pO2 VBG HCO3 VBG Total CO2 VBG O2 Saturation VBG Base Excess Sodium 131 L Potassium 3.8 Chloride 98 L Carbon Dioxide 17 L Anion Gap 16.0 H BUN 112 H* Creatinine 8.0 H* Estimated GFR (MDRD) 8 L Glucose 576 H* Calcium 7.5 L Urine Protein Urine Glucose (UA) Urine Occult Blood Urine RBC Urine WBC Ur Squamous Epith Cells Serum Ketones NEGATIVE 01/20/18 01/21/18 23:59 00:45 WBC Hgb Hct Plt Count VBG pH 7.348 VBG pCO2 30.6 L VBG pO2 47.2 H VBG HCO3 16.4 L VBG Total CO2 17.4 L VBG O2 Saturation 83.8 H VBG Base Excess -8.3 L Sodium Potassium Chloride Carbon Dioxide Anion Gap BUN Creatinine Estimated GFR (MDRD) Glucose Calcium Urine Protein 100 H Urine Glucose (UA) >=1000 H Urine Occult Blood MODERATE H Urine RBC 11-25 H Urine WBC 0-3 Ur Squamous Epith Cells NONE SEEN Serum Ketones - Diagnostic Imaging Results Diagnostic Imaging Results: positive: Final report reviewed Core Measures - Anticipated LOS I expect patient to be DC'd or transferred within 96 hours.: Yes - DVT/VTE - Prophylaxis VTE/DVT Device ordered at admit?: Yes
[2018-01-21] MEDS: HYDROcod/ACETAM 5/325 MG TABLET PO PRN ×2 (04:26→18:37)
[2018-01-21] MEDS: NS W/20 MEQ KCL 1,000 ML IV SCH ×2 (04:26→20:57)
[2018-01-21 06:52] LABS: BASOPHILS % (AUTO) 0.7 %; EOSINOPHILS # (AUTO) 0.2 10^3/uL (0.0-0.7); EOSINOPHILS % (AUTO) 2.3 %; LYMPHOCYTES # (AUTO) 0.5 10^3/uL (1.5-3.5); LYMPHOCYTES % (AUTO) 7.2 %; MEAN CORPUSCULAR HGB CONC 33.3 g/dL (32.0-36.0); MEAN CORPUSCULAR VOLUME 93.3 fL (80.0-94.0); MEAN PLATELET VOLUME 9.3 fL (7.4-11.4); MONOCYTES # (AUTO) 0.5 10^3/uL (0.0-1.0); MONOCYTES % (AUTO) 6.5 %; NEUTROPHILS # (AUTO) 6.1 10^3/uL (1.5-6.6); NEUTROPHILS % (AUTO) 83.3 %; PLT - PLATELET COUNT 221 10^3/uL (130-450); RED BLOOD COUNT 2.15 10^6/uL (4.70-6.10); RED CELL DISTRIBUTION WIDTH 14.5 % (12.0-15.0); WHITE BLOOD COUNT 7.4 x10^3/uL (4.8-10.8)
[2018-01-21 06:57] LABS: HGB - HEMOGLOBIN 6.7 g/dL (14.0-18.0)
[2018-01-21 07:06] LABS: CALCIUM 7.2 mg/dL (8.5-10.3); CREATININE 7.4 mg/dL (0.6-1.2)
[2018-01-21 07:21] LABS: HEMOGLOBIN A1C 0.73 g/dL; HEMOGLOBIN A1C % 11.7 % (4.6-6.2)
[2018-01-21 07:50] LABS: RBC MORPHOLOGY (MULTIPLE) 2+ ANISOCYTOSIS (NORMAL)
[2018-01-21] MEDS ORDERED: diphenhydrAMINE 25 MG CAPSULE PO ONE (09:00)
[2018-01-21] MEDS: METOPROLOL SUCCINATE 50 MG TABLET PO SCH ×2 (09:29→20:44)
[2018-01-21] MEDS: INSULIN GLARGINE 300 UNIT/3 ML PEN SUBQ SCH ×2 (09:30→20:44)
[2018-01-21] MEDS: CITALOPRAM 10 MG TABLET PO SCH (09:30)
[2018-01-21] MEDS: INSULIN ASPART 300 UNIT/3 ML PEN SUBQ SCH ×4 (09:31→20:44)
[2018-01-21] MEDS: POLYETHYLENE GLYCOL 3350 17 GM PACKET PO SCH (09:31)
[2018-01-21] MEDS: SODIUM CHLORIDE FLUSH 0.9% 10 ML SYRINGE IVP SCH ×2 (09:32→16:35)
[2018-01-21] MEDS ORDERED: SODIUM CHLORIDE 0.9% 500 ML IV ONE (10:05)
[2018-01-21] MEDS: ONDANSETRON ODT 4 MG TABLET TL PRN (14:02)
--- NOTE | 2018-01-21 17:44 | PROVIDER PROGRESS NOTE ---
Subjective - Prog Note Date Prog Note Date: 01/21/18 - Subjective Pt reports feeling: Improved Subjective: pt feel better, pain is better on his leg. denies chest pain, palpitation, abdominal pain, fever, chill. Current Medications - Current Medications Current Medications: Active Medications Acetaminophen (Tylenol) 650 mg PO Q4HR PRN PRN Reason: Pain 1 to 4 Hydrocodone Bitart/Acetaminophen ([place] 5/325) 1 tab PO Q4HR PRN PRN Reason: Pain 5 to 7 Last Admin: 01/21/18 04:26 Dose: 1 tab Benzonatate (Tessalon) 100 mg PO TID PRN PRN Reason: Cough Citalopram Hydrobromide (Celexa) 20 mg PO DAILY [facility] Last Admin: 01/21/18 09:30 Dose: 20 mg Potassium Chloride/Sodium Chloride (Normal Saline 0.9% W/20 Meq Kcl) 1,000 mls @ 100 mls/hr IV .Q10H [facility] Last Infusion: 01/21/18 16:26 Dose: 100 mls/hr Ceftriaxone Sodium 2 gm/ (Sodium Chloride) 100 mls @ 200 mls/hr IV Q24H [facility] Insulin Aspart (Novolog) 3 - 11 unit SUBQ 0800,1200,1700,2100 [facility]; Protocol Last Admin: 01/21/18 16:52 Dose: Not Given Insulin Glargine (Lantus Solostar) 5 unit SUBQ QDBREAKFAST [facility] Last Admin: 01/21/18 09:30 Dose: 5 unit Insulin Glargine (Lantus Solostar) 10 unit SUBQ QPM [facility] Metoprolol Succinate (Toprol Xl) 150 mg PO BID [facility] Last Admin: 01/21/18 09:29 Dose: 150 mg Ondansetron HCl (Zofran Inj) 4 mg IVP Q6HR PRN PRN Reason: Nausea / Vomiting Ondansetron HCl (Zofran Odt) 4 mg TL Q6HR PRN PRN Reason: Nausea / Vomiting Last Admin: 01/21/18 14:02 Dose: 4 mg Polyethylene Glycol (Miralax) 17 gm PO DAILY [facility] Last Admin: 01/21/18 09:31 Dose: 17 gm Prochlorperazine Edisylate (Compazine Inj) 10 mg IVP Q6HR PRN PRN Reason: Nausea / Vomiting Sodium Chloride (Normal Saline Flush 0.9%) 10 ml IVP PRN PRN PRN Reason: NEEDED PER PROVIDER ORDERS Sodium Chloride (Normal Saline Flush 0.9%) 10 ml IVP 0100,0900,1700 [facility] Last Admin: 01/21/18 09:32 Dose: Not Given Chlorthalidone 25 mg PO DAILY 01/21/18 Citalopram Hydrobromide [Celexa] 20 mg PO DAILY 01/21/18 Furosemide 40 mg PO DAILY 01/21/18 Insulin Aspart (Vial) [NovoLOG (VIAL FOR ED USE)] 21 units SUBQ DAILY 01/21/18 Metoprolol Succinate [Toprol Xl] 100 mg PO BID 01/21/18 NIFEdipine [Nifedipine ER] 30 mg PO QPM 01/21/18 Objective - Vital Signs/Intake & Output Reviewed Vital Signs: Yes Vital Signs: Vital Signs x48h Temp Pulse Pulse Resp BP BP Pulse Ox 01/21/18 16:26 36.6 C 77 15 156/91 H 01/21/18 16:00 36.6 C 77 15 156/91 H 98 01/21/18 13:55 36.8 C 77 16 155/87 H 01/21/18 13:39 37.1 C 76 16 158/85 H 01/21/18 12:36 36.8 C 78 18 146/88 H 01/21/18 10:30 36.7 C 83 18 165/83 H 01/21/18 10:17 36.8 C 87 18 179/87 H 01/21/18 10:10 36.8 C 84 21 95 Intake & Output: Intake & Output 01/18/18 01/19/18 01/20/18 01/21/18 23:59 23:59 23:59 23:59 Intake Total 10 3415.333 Output Total 650 Balance 10 2765.333 - Objective General Appearance: positive: No acute distress, Alert. negative: Lethargic Eyes Bilateral: positive: Normal inspection, PERRL, No lid inflammation, Conjunctivae nml ENT: positive: ENT inspection nml, Pharynx nml, No signs of dehydration. negative: Purulent nasal drainage, Pharyngeal erythema, Oral lesions Neck: positive: Nml inspection, Thyroid nml, No JVD, Trachea midline. negative: Thyromegaly, Lymphadenopathy (R), Lymphadenopathy (L), Stiff neck, Swelling/bruising, Tracheal deviation Respiratory: positive: Chest non-tender, No respiratory distress. negative: Wheezes, Rales, Rhonchi Cardiovascular: positive: Regular rate & rhythm, No murmur, No gallop. negative: Irregularly irregular, Extrasystoles, Tachycardia, Bradycardia, JVD present, Systolic murmur, Diastolic murmur Peripheral Pulses: 2+ Radial (R), 2+ Radial (L), 2+ Dorsalis pedis (R), 2+ Dorsalis pedis (L) Abdomen: positive: Non-tender, No organomegaly, Nml bowel sounds, No distention. negative: Tenderness, Guarding, Rebound Back: positive: Nml inspection. negative: CVA tenderness (R), CVA tenderness (L) Skin: positive: Color nml, No rash, Warm, Dry. negative: Cyanosis, Diaphoresis, Pallor Extremities: positive: Non-tender, Full ROM. negative: Calf tenderness, Fariha's sign/cords Neurologic/Psychiatric: positive: Oriented x3, Motor nml, Sensation nml. negative: Weakness, Sensory loss, Facial droop, Slurred/abnml speech, Depressed mood/affect - Lab Results Fish Bones: 01/21/18 06:20 01/21/18 17:35 Other Labs: Lab Results x24hrs 01/21/18 01/21/18 01/21/18 Range/Units 16:41 12:37 08:04 WBC (4.8-10.8) x10^3/uL RBC (4.70-6.10) 10^6/uL Hgb (14.0-18.0) g/dL Hct (42.0-52.0) % MCV (80.0-94.0) fL MCH (27.0-31.0) pg MCHC (32.0-36.0) g/dL RDW (12.0-15.0) % Plt Count (130-450) 10^3/uL MPV (7.4-11.4) fL Neut # (Auto) (1.5-6.6) 10^3/uL Lymph # (Auto) (1.5-3.5) 10^3/uL Elbert # (Auto) (0.0-1.0) 10^3/uL Eos # (Auto) (0.0-0.7) 10^3/uL Baso # (Auto) (0.0-0.1) 10^3/uL Absolute Nucleated RBC x10^3/uL Nucleated RBC % /100WBC Manual Slide Review RBC Morph Micro Appear (NORMAL) VBG pH (7.31-7.41) VBG pCO2 (41-51) mmHg VBG pO2 (25-47) mmHg VBG HCO3 (23-28) mmol/L VBG Total CO2 (24-29) mmol/L VBG O2 Saturation (60-80) % VBG Base Excess (-2 - +2) mmol/L Sodium (135-145) mmol/L Potassium (3.5-5.0) mmol/L Chloride (101-111) mmol/L Carbon Dioxide (21-32) mmol/L Anion Gap (6-13) BUN (6-20) mg/dL Creatinine (0.6-1.2) mg/dL Estimated GFR (MDRD) (>89) Glucose (70-100) mg/dL POC Whole Bld Glucose 122 H 348 H 365 H (70 - 100) mg/dL Glycated Hemoglobin (4.6-6.2) % Estim Average Glucose (70-100) Calcium (8.5-10.3) mg/dL Total Bilirubin (0.2-1.0) mg/dL AST (10-42) IU/L ALT (10-60) IU/L Alkaline Phosphatase (42-121) IU/L Total Protein (6.7-8.2) g/dL Albumin (3.2-5.5) g/dL Globulin (2.1-4.2) g/dL Albumin/Globulin Ratio (1.0-2.2) Lipase (22-51) U/L Urine Color Urine Clarity (CLEAR) Urine pH (5.0-7.5) PH Ur Specific [place] (1.002-1.030) Urine Protein (NEGATIVE) mg/dL Urine Glucose (UA) (NEGATIVE) mg/dL Urine Ketones (NEGATIVE) mg/dL Urine Occult Blood (NEGATIVE) Urine Nitrite (NEGATIVE) Urine Bilirubin (NEGATIVE) Urine Urobilinogen (NORMAL) E.U./dL Ur Leukocyte Esterase (NEGATIVE) Urine RBC (0-5) /HPF Urine WBC (0-3) /HPF Ur Squamous Epith Cells (<= Few) Urine Bacteria (None Seen) /HPF Urine Casts /LPF Ur Microscopic Review Urine Culture Comments Serum Ketones (NEGATIVE) Blood Type Antibody Screen Crossmatch IS Only 01/21/18 01/21/18 01/21/18 Range/Units 07:40 06:20 06:20 WBC 7.4 (4.8-10.8) x10^3/uL RBC 2.15 L (4.70-6.10) 10^6/uL Hgb 6.7 L* (14.0-18.0) g/dL Hct 20.0 L* (42.0-52.0) % MCV 93.3 (80.0-94.0) fL MCH 31.0 (27.0-31.0) pg MCHC 33.3 (32.0-36.0) g/dL RDW 14.5 (12.0-15.0) % Plt Count 221 (130-450) 10^3/uL MPV 9.3 (7.4-11.4) fL Neut # (Auto) 6.1 (1.5-6.6) 10^3/uL Lymph # (Auto) 0.5 L (1.5-3.5) 10^3/uL Elbert # (Auto) 0.5 (0.0-1.0) 10^3/uL Eos # (Auto) 0.2 (0.0-0.7) 10^3/uL Baso # (Auto) 0.0 (0.0-0.1) 10^3/uL Absolute Nucleated RBC 0.00 x10^3/uL Nucleated RBC % 0.0 /100WBC Manual Slide Review Indicated RBC Morph Micro Appear 2+ ANISOCYTOSIS (NORMAL) VBG pH (7.31-7.41) VBG pCO2 (41-51) mmHg VBG pO2 (25-47) mmHg VBG HCO3 (23-28) mmol/L VBG Total CO2 (24-29) mmol/L VBG O2 Saturation (60-80) % VBG Base Excess (-2 - +2) mmol/L Sodium 135 (135-145) mmol/L Potassium 3.7 (3.5-5.0) mmol/L Chloride 105 (101-111) mmol/L Carbon Dioxide 17 L (21-32) mmol/L Anion Gap 13.0 (6-13) BUN 99 H* (6-20) mg/dL Creatinine 7.4 H* (0.6-1.2) mg/dL Estimated GFR (MDRD) 9 L (>89) Glucose 354 H (70-100) mg/dL POC Whole Bld Glucose (70 - 100) mg/dL Glycated Hemoglobin (4.6-6.2) % Estim Average Glucose (70-100) Calcium 7.2 L (8.5-10.3) mg/dL Total Bilirubin (0.2-1.0) mg/dL AST (10-42) IU/L ALT (10-60) IU/L Alkaline Phosphatase (42-121) IU/L Total Protein (6.7-8.2) g/dL Albumin (3.2-5.5) g/dL Globulin (2.1-4.2) g/dL Albumin/Globulin Ratio (1.0-2.2) Lipase (22-51) U/L Urine Color Urine Clarity (CLEAR) Urine pH (5.0-7.5) PH Ur Specific [place] (1.002-1.030) Urine Protein (NEGATIVE) mg/dL Urine Glucose (UA) (NEGATIVE) mg/dL Urine Ketones (NEGATIVE) mg/dL Urine Occult Blood (NEGATIVE) Urine Nitrite (NEGATIVE) Urine Bilirubin (NEGATIVE) Urine Urobilinogen (NORMAL) E.U./dL Ur Leukocyte Esterase (NEGATIVE) Urine RBC (0-5) /HPF Urine WBC (0-3) /HPF Ur Squamous Epith Cells (<= Few) Urine Bacteria (None Seen) /HPF Urine Casts /LPF Ur Microscopic Review Urine Culture Comments Serum Ketones (NEGATIVE) Blood Type AB POSITIVE Antibody Screen NEGATIVE Crossmatch IS Only See Detail 01/21/18 01/21/18 01/21/18 Range/Units 06:20 01:34 00:45 WBC (4.8-10.8) x10^3/uL RBC (4.70-6.10) 10^6/uL Hgb (14.0-18.0) g/dL Hct (42.0-52.0) % MCV (80.0-94.0) fL MCH (27.0-31.0) pg MCHC (32.0-36.0) g/dL RDW (12.0-15.0) % Plt Count (130-450) 10^3/uL MPV (7.4-11.4) fL Neut # (Auto) (1.5-6.6) 10^3/uL Lymph # (Auto) (1.5-3.5) 10^3/uL Elbert # (Auto) (0.0-1.0) 10^3/uL Eos # (Auto) (0.0-0.7) 10^3/uL Baso # (Auto) (0.0-0.1) 10^3/uL Absolute Nucleated RBC x10^3/uL Nucleated RBC % /100WBC Manual Slide Review RBC Morph Micro Appear (NORMAL) VBG pH (7.31-7.41) VBG pCO2 (41-51) mmHg VBG pO2 (25-47) mmHg VBG HCO3 (23-28) mmol/L VBG Total CO2 (24-29) mmol/L VBG O2 Saturation (60-80) % VBG Base Excess (-2 - +2) mmol/L Sodium (135-145) mmol/L Potassium (3.5-5.0) mmol/L Chloride (101-111) mmol/L Carbon Dioxide (21-32) mmol/L Anion Gap (6-13) BUN (6-20) mg/dL Creatinine (0.6-1.2) mg/dL Estimated GFR (MDRD) (>89) Glucose (70-100) mg/dL POC Whole Bld Glucose 501 H* (70 - 100) mg/dL Glycated Hemoglobin 11.7 H (4.6-6.2) % Estim Average Glucose 289 H (70-100) Calcium (8.5-10.3) mg/dL Total Bilirubin (0.2-1.0) mg/dL AST (10-42) IU/L ALT (10-60) IU/L Alkaline Phosphatase (42-121) IU/L Total Protein (6.7-8.2) g/dL Albumin (3.2-5.5) g/dL Globulin (2.1-4.2) g/dL Albumin/Globulin Ratio (1.0-2.2) Lipase (22-51) U/L Urine Color YELLOW Urine Clarity CLEAR (CLEAR) Urine pH 6.0 (5.0-7.5) PH Ur Specific [place] 1.020 (1.002-1.030) Urine Protein 100 H (NEGATIVE) mg/dL Urine Glucose (UA) >=1000 H (NEGATIVE) mg/dL Urine Ketones NEGATIVE (NEGATIVE) mg/dL Urine Occult Blood MODERATE H (NEGATIVE) Urine Nitrite NEGATIVE (NEGATIVE) Urine Bilirubin NEGATIVE (NEGATIVE) Urine Urobilinogen 0.2 (NORMAL) (NORMAL) E.U./dL Ur Leukocyte Esterase NEGATIVE (NEGATIVE) Urine RBC 11-25 H (0-5) /HPF Urine WBC 0-3 (0-3) /HPF Ur Squamous Epith Cells NONE SEEN (<= Few) Urine Bacteria Rare (None Seen) /HPF Urine Casts 6-10 Hyaline Casts /LPF Ur Microscopic Review INDICATED Urine Culture Comments NOT INDICATED Serum Ketones (NEGATIVE) Blood Type Antibody Screen Crossmatch IS Only 01/20/18 01/20/18 01/20/18 Range/Units 23:59 23:59 23:15 WBC (4.8-10.8) x10^3/uL RBC (4.70-6.10) 10^6/uL Hgb (14.0-18.0) g/dL Hct (42.0-52.0) % MCV (80.0-94.0) fL MCH (27.0-31.0) pg MCHC (32.0-36.0) g/dL RDW (12.0-15.0) % Plt Count (130-450) 10^3/uL MPV (7.4-11.4) fL Neut # (Auto) (1.5-6.6) 10^3/uL Lymph # (Auto) (1.5-3.5) 10^3/uL Elbert # (Auto) (0.0-1.0) 10^3/uL Eos # (Auto) (0.0-0.7) 10^3/uL Baso # (Auto) (0.0-0.1) 10^3/uL Absolute Nucleated RBC x10^3/uL Nucleated RBC % /100WBC Manual Slide Review RBC Morph Micro Appear (NORMAL) VBG pH 7.348 (7.31-7.41) VBG pCO2 30.6 L (41-51) mmHg VBG pO2 47.2 H (25-47) mmHg VBG HCO3 16.4 L (23-28) mmol/L VBG Total CO2 17.4 L (24-29) mmol/L VBG O2 Saturation 83.8 H (60-80) % VBG Base Excess -8.3 L (-2 - +2) mmol/L Sodium 131 L (135-145) mmol/L Potassium 3.8 (3.5-5.0) mmol/L Chloride 98 L (101-111) mmol/L Carbon Dioxide 17 L (21-32) mmol/L Anion Gap 16.0 H (6-13) BUN 112 H* (6-20) mg/dL Creatinine 8.0 H* (0.6-1.2) mg/dL Estimated GFR (MDRD) 8 L (>89) Glucose 576 H* (70-100) mg/dL POC Whole Bld Glucose (70 - 100) mg/dL Glycated Hemoglobin (4.6-6.2) % Estim Average Glucose (70-100) Calcium 7.5 L (8.5-10.3) mg/dL Total Bilirubin 0.5 (0.2-1.0) mg/dL AST 12 (10-42) IU/L ALT 25 (10-60) IU/L Alkaline Phosphatase 96 (42-121) IU/L Total Protein 7.0 (6.7-8.2) g/dL Albumin 2.6 L (3.2-5.5) g/dL Globulin 4.4 H (2.1-4.2) g/dL Albumin/Globulin Ratio 0.6 L (1.0-2.2) Lipase 40 (22-51) U/L Urine Color Urine Clarity (CLEAR) Urine pH (5.0-7.5) PH Ur Specific [place] (1.002-1.030) Urine Protein (NEGATIVE) mg/dL Urine Glucose (UA) (NEGATIVE) mg/dL Urine Ketones (NEGATIVE) mg/dL Urine Occult Blood (NEGATIVE) Urine Nitrite (NEGATIVE) Urine Bilirubin (NEGATIVE) Urine Urobilinogen (NORMAL) E.U./dL Ur Leukocyte Esterase (NEGATIVE) Urine RBC (0-5) /HPF Urine WBC (0-3) /HPF Ur Squamous Epith Cells (<= Few) Urine Bacteria (None Seen) /HPF Urine Casts /LPF Ur Microscopic Review Urine Culture Comments Serum Ketones NEGATIVE (NEGATIVE) Blood Type Antibody Screen Crossmatch IS Only 01/20/18 Range/Units 23:15 WBC 9.2 (4.8-10.8) x10^3/uL RBC 2.63 L (4.70-6.10) 10^6/uL Hgb 8.1 L (14.0-18.0) g/dL Hct 24.9 L (42.0-52.0) % MCV 94.9 H (80.0-94.0) fL MCH 31.0 (27.0-31.0) pg MCHC 32.7 (32.0-36.0) g/dL RDW 14.7 (12.0-15.0) % Plt Count 286 (130-450) 10^3/uL MPV 9.2 (7.4-11.4) fL Neut # (Auto) 7.9 H (1.5-6.6) 10^3/uL Lymph # (Auto) 0.5 L (1.5-3.5) 10^3/uL Elbert # (Auto) 0.6 (0.0-1.0) 10^3/uL Eos # (Auto) 0.2 (0.0-0.7) 10^3/uL Baso # (Auto) 0.1 (0.0-0.1) 10^3/uL Absolute Nucleated RBC 0.00 x10^3/uL Nucleated RBC % 0.0 /100WBC Manual Slide Review RBC Morph Micro Appear (NORMAL) VBG pH (7.31-7.41) VBG pCO2 (41-51) mmHg VBG pO2 (25-47) mmHg VBG HCO3 (23-28) mmol/L VBG Total CO2 (24-29) mmol/L VBG O2 Saturation (60-80) % VBG Base Excess (-2 - +2) mmol/L Sodium (135-145) mmol/L Potassium (3.5-5.0) mmol/L Chloride (101-111) mmol/L Carbon Dioxide (21-32) mmol/L Anion Gap (6-13) BUN (6-20) mg/dL Creatinine (0.6-1.2) mg/dL Estimated GFR (MDRD) (>89) Glucose (70-100) mg/dL POC Whole Bld Glucose (70 - 100) mg/dL Glycated Hemoglobin (4.6-6.2) % Estim Average Glucose (70-100) Calcium (8.5-10.3) mg/dL Total Bilirubin (0.2-1.0) mg/dL AST (10-42) IU/L ALT (10-60) IU/L Alkaline Phosphatase (42-121) IU/L Total Protein (6.7-8.2) g/dL Albumin (3.2-5.5) g/dL Globulin (2.1-4.2) g/dL Albumin/Globulin Ratio (1.0-2.2) Lipase (22-51) U/L Urine Color Urine Clarity (CLEAR) Urine pH (5.0-7.5) PH Ur Specific [place] (1.002-1.030) Urine Protein (NEGATIVE) mg/dL Urine Glucose (UA) (NEGATIVE) mg/dL Urine Ketones (NEGATIVE) mg/dL Urine Occult Blood (NEGATIVE) Urine Nitrite (NEGATIVE) Urine Bilirubin (NEGATIVE) Urine Urobilinogen (NORMAL) E.U./dL Ur Leukocyte Esterase (NEGATIVE) Urine RBC (0-5) /HPF Urine WBC (0-3) /HPF Ur Squamous Epith Cells (<= Few) Urine Bacteria (None Seen) /HPF Urine Casts /LPF Ur Microscopic Review Urine Culture Comments Serum Ketones (NEGATIVE) Blood Type Antibody Screen Crossmatch IS Only ABX Reporting Has patient been on IV antibiotics over the past 48 hours?: Yes Sepsis Event Note (H) - Evaluation Current Stage of Sepsis: Ruled out Assessment/Plan - Problem List (1) [id number] renal failure Impression: 01/21 creatinine is slight down to 7.4 after hydration continue hydration, precaution of fluid overload continue lab monitor to see how much response to hydration (2) Type 1 diabetes mellitus Conclusion/Plan: A1C11.7, pt is not well compliant continue lantus and slide scale for insulin continue ACHS and hypoglycemia (3) Pneumonia Conclusion/Plan: see pneumonia on CXR continue treat with antibiotics, rocephin and Po azithyomycin 250 mg (4) Anemia in chronic kidney disease Conclusion/Plan: HGB is down to 6.7, pt denies GI bleeding, likely from CKD/renal failure transfusion of two unit of blood lab monitor (5) HTN (hypertension) Conclusion/Plan: stable, continue beta cm and Norvasc (6) Right leg pain Conclusion/Plan: pt feel better, no fracture, continue RICE Qualifiers: Acute renal failure type: unspecified Chronic kidney disease stage: stage 5, not on chronic dialysis Qualified Code(s): N17.9 - Acute kidney failure, unspecified; N18.5 - Chronic kidney disease, stage 5
[2018-01-21 18:02] LABS: ALBUMIN 2.4 g/dL (3.2-5.5); ALBUMIN/GLOBULIN RATIO 0.6 (1.0-2.2); BILIRUBIN,TOTAL 0.7 mg/dL (0.2-1.0); CALCIUM 7.3 mg/dL (8.5-10.3); CREATININE 7.6 mg/dL (0.6-1.2); TOTAL PROTEIN 6.4 g/dL (6.7-8.2)
[2018-01-21 18:17] LABS: HGB - HEMOGLOBIN 9.4 g/dL (14.0-18.0)
[2018-01-21] MEDS: BENZONATATE 100 MG CAPSULE PO PRN (18:30)
[2018-01-21] MEDS: AZITHROMYCIN 250 MG TABLET PO SCH (18:31)
[2018-01-21] MEDS: ACETAMINOPHEN 325 MG TABLET PO PRN (20:46)
[2018-01-21] MEDS: NIFEdipine ER 30 MG TABLET PO SCH (22:54)
[2018-01-22] MEDS: SODIUM CHLORIDE FLUSH 0.9% 10 ML SYRINGE IVP SCH ×3 (01:26→17:23)
[2018-01-22] MEDS: cefTRIAXone 2 GM in SODIUM CHLORIDE 0.9% MINIBAG 100 ML IV SCH (01:56)
[2018-01-22] MEDS: BENZONATATE 100 MG CAPSULE PO PRN ×2 (02:35→08:22)
[2018-01-22 05:06] LABS: BASOPHILS # (AUTO) 0.1 10^3/uL (0.0-0.1); BASOPHILS % (AUTO) 0.9 %; EOSINOPHILS # (AUTO) 0.4 10^3/uL (0.0-0.7); EOSINOPHILS % (AUTO) 6.4 %; HGB - HEMOGLOBIN 8.9 g/dL (14.0-18.0); LYMPHOCYTES # (AUTO) 0.9 10^3/uL (1.5-3.5); LYMPHOCYTES % (AUTO) 15.3 %; MEAN CORPUSCULAR HEMOGLOBIN 31.8 pg (27.0-31.0); MEAN CORPUSCULAR HGB CONC 34.2 g/dL (32.0-36.0); MEAN CORPUSCULAR VOLUME 92.9 fL (80.0-94.0); MONOCYTES # (AUTO) 0.4 10^3/uL (0.0-1.0); MONOCYTES % (AUTO) 7.4 %; NEUTROPHILS # (AUTO) 4.2 10^3/uL (1.5-6.6); PLT - PLATELET COUNT 261 10^3/uL (130-450); RED BLOOD COUNT 2.79 10^6/uL (4.70-6.10); RED CELL DISTRIBUTION WIDTH 14.6 % (12.0-15.0); WHITE BLOOD COUNT 5.9 x10^3/uL (4.8-10.8)
[2018-01-22 05:27] LABS: CALCIUM 7.3 mg/dL (8.5-10.3)
[2018-01-22 05:28] LABS: CREATININE 7.3 mg/dL (0.6-1.2)
[2018-01-22] MEDS: NS W/20 MEQ KCL 1,000 ML IV SCH ×2 (05:51→14:38)
[2018-01-22] MEDS: CITALOPRAM 10 MG TABLET PO SCH (08:10)
[2018-01-22] MEDS: NIFEdipine ER 30 MG TABLET PO SCH (08:13)
[2018-01-22] MEDS: METOPROLOL SUCCINATE 50 MG TABLET PO SCH ×2 (08:13→21:13)
[2018-01-22] MEDS: INSULIN GLARGINE 300 UNIT/3 ML PEN SUBQ SCH ×2 (08:19→21:16)
[2018-01-22] MEDS: HYDROcod/ACETAM 5/325 MG TABLET PO PRN (08:44)
[2018-01-22] MEDS: AZITHROMYCIN 250 MG TABLET PO SCH (08:45)
[2018-01-22] MEDS: INSULIN ASPART 300 UNIT/3 ML PEN SUBQ SCH ×4 (11:30→21:17)
[2018-01-22] MEDS: POLYETHYLENE GLYCOL 3350 17 GM PACKET PO SCH (11:36)
--- NOTE | 2018-01-22 14:35 | PROVIDER PROGRESS NOTE ---
Subjective - Prog Note Date Prog Note Date: 01/22/18 - Subjective Pt reports feeling: Improved Subjective: I called Dr. Russell, rn labor delivery, and left message to him for consulting. I did not receive call back yet. Pt's renal function has mild improved, and still has a good urine. Pt may be benefit from continuing of hydration and improve his renal function. Current Medications - Current Medications Current Medications: Active Medications Acetaminophen (Tylenol) 650 mg PO Q4HR PRN PRN Reason: Pain 1 to 4 Last Admin: 01/21/18 20:46 Dose: 650 mg Hydrocodone Bitart/Acetaminophen ([place] 5/325) 1 tab PO Q4HR PRN PRN Reason: Pain 5 to 7 Last Admin: 01/22/18 08:44 Dose: 1 tab Azithromycin (Zithromax) 250 mg PO DAILY [facility] Last Admin: 01/22/18 08:45 Dose: 250 mg Benzonatate (Tessalon) 100 mg PO TID PRN PRN Reason: Cough Last Admin: 01/22/18 08:22 Dose: 100 mg Citalopram Hydrobromide (Celexa) 20 mg PO DAILY [facility] Last Admin: 01/22/18 08:10 Dose: 20 mg Potassium Chloride/Sodium Chloride (Normal Saline 0.9% W/20 Meq Kcl) 1,000 mls @ 100 mls/hr IV .Q10H [facility] Last Admin: 01/22/18 05:51 Dose: 100 mls/hr Ceftriaxone Sodium 2 gm/ (Sodium Chloride) 100 mls @ 200 mls/hr IV Q24H [facility] Last Infusion: 01/22/18 02:43 Dose: Infused Insulin Aspart (Novolog) 3 - 11 unit SUBQ 0800,1200,1700,2100 [facility]; Protocol Last Admin: 01/22/18 11:36 Dose: Not Given Insulin Glargine (Lantus Solostar) 5 unit SUBQ QDBREAKFAST [facility] Last Admin: 01/22/18 08:19 Dose: 5 unit Insulin Glargine (Lantus Solostar) 10 unit SUBQ QPM [facility] Last Admin: 01/21/18 20:44 Dose: 10 unit Metoprolol Succinate (Toprol Xl) 150 mg PO BID [facility] Last Admin: 01/22/18 08:13 Dose: 150 mg Nifedipine (Procardia Xl) 30 mg PO DAILY [facility] Last Admin: 01/22/18 08:13 Dose: 30 mg Ondansetron HCl (Zofran Inj) 4 mg IVP Q6HR PRN PRN Reason: Nausea / Vomiting Ondansetron HCl (Zofran Odt) 4 mg TL Q6HR PRN PRN Reason: Nausea / Vomiting Last Admin: 01/21/18 14:02 Dose: 4 mg Polyethylene Glycol (Miralax) 17 gm PO DAILY [facility] Last Admin: 01/22/18 11:36 Dose: 17 gm Prochlorperazine Edisylate (Compazine Inj) 10 mg IVP Q6HR PRN PRN Reason: Nausea / Vomiting Sodium Chloride (Normal Saline Flush 0.9%) 10 ml IVP PRN PRN PRN Reason: NEEDED PER PROVIDER ORDERS Sodium Chloride (Normal Saline Flush 0.9%) 10 ml IVP 0100,0900,1700 [facility] Last Admin: 01/22/18 11:37 Dose: Not Given Chlorthalidone 25 mg PO DAILY 01/21/18 Citalopram Hydrobromide [Celexa] 20 mg PO DAILY 01/21/18 Furosemide 40 mg PO DAILY 01/21/18 Insulin Aspart (Vial) [NovoLOG (VIAL FOR ED USE)] 21 units SUBQ DAILY 01/21/18 Metoprolol Succinate [Toprol Xl] 100 mg PO BID 01/21/18 NIFEdipine [Nifedipine ER] 30 mg PO QPM 01/21/18 Objective - Vital Signs/Intake & Output Reviewed Vital Signs: Yes Vital Signs: Vital Signs x48h Temp Pulse Resp BP Pulse Ox 01/22/18 07:02 36.7 C 71 18 104/55 L 98 Intake & Output: Intake & Output 01/19/18 01/20/18 01/21/18 01/22/18 23:59 23:59 23:59 23:59 Intake Total 10 4398.666 2361.667 Output Total 2100 800 Balance 10 2298.666 1561.667 - Objective General Appearance: positive: No acute distress, Alert. negative: Lethargic Eyes Bilateral: positive: Normal inspection, PERRL. negative: No lid inflammation, Conjunctivae nml ENT: positive: ENT inspection nml, Pharynx nml, No signs of dehydration. negative: Purulent nasal drainage, Pharyngeal erythema, Oral lesions Neck: positive: Nml inspection, Thyroid nml, No JVD, Trachea midline. negative: Thyromegaly, Lymphadenopathy (R), Lymphadenopathy (L), Stiff neck, Swelling/bruising, Tracheal deviation Respiratory: positive: Chest non-tender, No respiratory distress, Breath sounds nml. negative: Wheezes, Rales, Rhonchi Cardiovascular: positive: Regular rate & rhythm, No murmur, No gallop. nega tive: Irregularly irregular, Extrasystoles, Tachycardia, Bradycardia, JVD present, Systolic murmur, Diastolic murmur Peripheral Pulses: 2+ Radial (R), 2+ Radial (L), 2+ Dorsalis pedis (R), 2+ Dorsalis pedis (L) Abdomen: positive: Non-tender, No organomegaly, Nml bowel sounds, No distention. negative: Tenderness, Guarding, Rebound Back: positive: Nml inspection. negative: CVA tenderness (R), CVA tenderness (L) Skin: positive: Color nml, No rash, Warm, Dry. negative: Cyanosis, Diaphoresis, Pallor Extremities: positive: Non-tender, Full ROM, Nml appearance. negative: Calf tenderness, Joint swelling, Fariha's sign/cords Neurologic/Psychiatric: positive: Oriented x3, Sensation nml, Mood/affect nml. negative: Weakness, Sensory loss, Facial droop, Slurred/abnml speech, Depressed mood/affect - Lab Results Fish Bones: 01/23/18 04:45 01/23/18 04:45 Other Labs: Lab Results x24hrs 01/22/18 01/22/18 01/22/18 Range/Units 11:32 07:31 04:48 WBC (4.8-10.8) x10^3/uL RBC (4.70-6.10) 10^6/uL Hgb (14.0-18.0) g/dL Hct (42.0-52.0) % MCV (80.0-94.0) fL MCH (27.0-31.0) pg MCHC (32.0-36.0) g/dL RDW (12.0-15.0) % Plt Count (130-450) 10^3/uL MPV (7.4-11.4) fL Neut # (Auto) (1.5-6.6) 10^3/uL Lymph # (Auto) (1.5-3.5) 10^3/uL [place] # (Auto) (0.0-1.0) 10^3/uL Eos # (Auto) (0.0-0.7) 10^3/uL Baso # (Auto) (0.0-0.1) 10^3/uL Absolute Nucleated RBC x10^3/uL Nucleated RBC % /100WBC Sodium 139 (135-145) mmol/L Potassium 3.9 (3.5-5.0) mmol/L Chloride 109 (101-111) mmol/L Carbon Dioxide 19 L (21-32) mmol/L Anion Gap 11.0 (6-13) BUN 98 H* (6-20) mg/dL Creatinine 7.3 H* (0.6-1.2) mg/dL Estimated GFR (MDRD) 9 L (>89) Glucose 132 H (70-100) mg/dL POC Whole Bld Glucose 211 H 103 H (70 - 100) mg/dL Calcium 7.3 L (8.5-10.3) mg/dL Total Bilirubin (0.2-1.0) mg/dL AST (10-42) IU/L ALT (10-60) IU/L Alkaline Phosphatase (42-121) IU/L Total Protein (6.7-8.2) g/dL Albumin (3.2-5.5) g/dL Globulin (2.1-4.2) g/dL Albumin/Globulin Ratio (1.0-2.2) 01/22/18 01/21/18 01/21/18 Range/Units 04:48 20:21 17:35 WBC 5.9 (4.8-10.8) x10^3/uL RBC 2.79 L (4.70-6.10) 10^6/uL Hgb 8.9 L 9.4 L (14.0-18.0) g/dL Hct 25.9 L 29.3 L (42.0-52.0) % MCV 92.9 (80.0-94.0) fL MCH 31.8 H (27.0-31.0) pg MCHC 34.2 (32.0-36.0) g/dL RDW 14.6 (12.0-15.0) % Plt Count 261 (130-450) 10^3/uL MPV 9.0 (7.4-11.4) fL Neut # (Auto) 4.2 (1.5-6.6) 10^3/uL Lymph # (Auto) 0.9 L (1.5-3.5) 10^3/uL [place] # (Auto) 0.4 (0.0-1.0) 10^3/uL Eos # (Auto) 0.4 (0.0-0.7) 10^3/uL Baso # (Auto) 0.1 (0.0-0.1) 10^3/uL Absolute Nucleated RBC 0.00 x10^3/uL Nucleated RBC % 0.0 /100WBC Sodium (135-145) mmol/L Potassium (3.5-5.0) mmol/L Chloride (101-111) mmol/L Carbon Dioxide (21-32) mmol/L Anion Gap (6-13) BUN (6-20) mg/dL Creatinine (0.6-1.2) mg/dL Estimated GFR (MDRD) (>89) Glucose (70-100) mg/dL POC Whole Bld Glucose 189 H (70 - 100) mg/dL Calcium (8.5-10.3) mg/dL Total Bilirubin (0.2-1.0) mg/dL AST (10-42) IU/L ALT (10-60) IU/L Alkaline Phosphatase (42-121) IU/L Total Protein (6.7-8.2) g/dL Albumin (3.2-5.5) g/dL Globulin (2.1-4.2) g/dL Albumin/Globulin Ratio (1.0-2.2) 01/21/18 01/21/18 Range/Units 17:35 16:41 WBC (4.8-10.8) x10^3/uL RBC (4.70-6.10) 10^6/uL Hgb (14.0-18.0) g/dL Hct (42.0-52.0) % MCV (80.0-94.0) fL MCH (27.0-31.0) pg MCHC (32.0-36.0) g/dL RDW (12.0-15.0) % Plt Count (130-450) 10^3/uL MPV (7.4-11.4) fL Neut # (Auto) (1.5-6.6) 10^3/uL Lymph # (Auto) (1.5-3.5) 10^3/uL [place] # (Auto) (0.0-1.0) 10^3/uL Eos # (Auto) (0.0-0.7) 10^3/uL Baso # (Auto) (0.0-0.1) 10^3/uL Absolute Nucleated RBC x10^3/uL Nucleated RBC % /100WBC Sodium 137 (135-145) mmol/L Potassium 3.8 (3.5-5.0) mmol/L Chloride 105 (101-111) mmol/L Carbon Dioxide 18 L (21-32) mmol/L Anion Gap 14.0 H (6-13) BUN 99 H* (6-20) mg/dL Creatinine 7.6 H* (0.6-1.2) mg/dL Estimated GFR (MDRD) 8 L (>89) Glucose 148 H (70-100) mg/dL POC Whole Bld Glucose 122 H (70 - 100) mg/dL Calcium 7.3 L (8.5-10.3) mg/dL Total Bilirubin 0.7 (0.2-1.0) mg/dL AST 13 (10-42) IU/L ALT 20 (10-60) IU/L Alkaline Phosphatase 82 (42-121) IU/L Total Protein 6.4 L (6.7-8.2) g/dL Albumin 2.4 L (3.2-5.5) g/dL Globulin 4.0 (2.1-4.2) g/dL Albumin/Globulin Ratio 0.6 L (1.0-2.2) ABX Reporting Has patient been on IV antibiotics over the past 48 hours?: Yes Sepsis Event Note (H) - Evaluation Current Stage of Sepsis: Ruled out Assessment/Plan - Problem List (1) [id number] renal failure Impression: 01/22 pt's renal function has some mild improved. pt may continue to have benefit from continuing hydration continue hydration, lab monitor. Dependent how much pt's renal function is improved, pt may be closely monitored before starting dialysis to him 01/21 creatinine is slight down to 7.4 after hydration continue hydration, precaution of fluid overload continue lab monitor to see how much response to hydration (2) Type 1 diabetes mellitus Conclusion/Plan: 01/22 continue slide scale, ACHS consult for pt' medical compliance, glucose control is good controlled glucose in hospital, his glucose is 103 in the morning continue lantus and slide scale for insulin continue ACHS and hypoglycemia A1C11.7, pt is not well compliant continue lantus and slide scale for insulin continue ACHS and hypoglycemia (3) Pneumonia Conclusion/Plan: 01/22 improved, significant reduced cough. continue antibiotics see pneumonia on CXR continue treat with antibiotics, rocephin and Po azithyomycin 250 mg (4) Anemia in chronic kidney disease Conclusion/Plan: 01/22 pt's HGB is 8.9 after transfusion of two units of blood. continue lab monitor HGB is down to 6.7, pt denies GI bleeding, likely from CKD/renal failure transfusion of two unit of blood lab monitor (5) HTN (hypertension) Conclusion/Plan: stable, continue beta cm and Norvasc (6) Right leg pain Conclusion/Plan: 01/22 better, continue RICE pt feel better, no fracture, continue RICE Qualifiers: Acute renal failure type: unspecified Chronic kidney disease stage: stage 5, not on chronic dialysis Qualified Code(s): N17.9 - Acute kidney failure, unspecified; N18.5 - Chronic kidney disease, stage 5
[2018-01-22] MEDS: ACETAMINOPHEN 325 MG TABLET PO PRN (14:42)
[2018-01-23] MEDS: cefTRIAXone 2 GM in SODIUM CHLORIDE 0.9% MINIBAG 100 ML IV SCH (01:44)
[2018-01-23] MEDS: NS W/20 MEQ KCL 1,000 ML IV SCH (01:47)
[2018-01-23] MEDS: SODIUM CHLORIDE FLUSH 0.9% 10 ML SYRINGE IVP SCH ×3 (01:47→17:09)
[2018-01-23] MEDS: BENZONATATE 100 MG CAPSULE PO PRN ×2 (02:34→08:59)
[2018-01-23 05:30] LABS: BASOPHILS % (AUTO) 0.8 %; EOSINOPHILS # (AUTO) 0.4 10^3/uL (0.0-0.7); EOSINOPHILS % (AUTO) 6.6 %; HGB - HEMOGLOBIN 9.3 g/dL (14.0-18.0); LYMPHOCYTES % (AUTO) 15.6 %; MEAN CORPUSCULAR HEMOGLOBIN 31.1 pg (27.0-31.0); MEAN CORPUSCULAR HGB CONC 32.7 g/dL (32.0-36.0); MEAN CORPUSCULAR VOLUME 95.2 fL (80.0-94.0); MEAN PLATELET VOLUME 9.2 fL (7.4-11.4); MONOCYTES # (AUTO) 0.5 10^3/uL (0.0-1.0); MONOCYTES % (AUTO) 7.9 %; NEUTROPHILS # (AUTO) 4.3 10^3/uL (1.5-6.6); NEUTROPHILS % (AUTO) 69.1 %; PLT - PLATELET COUNT 276 10^3/uL (130-450); RED BLOOD COUNT 2.98 10^6/uL (4.70-6.10); RED CELL DISTRIBUTION WIDTH 14.9 % (12.0-15.0); WHITE BLOOD COUNT 6.2 x10^3/uL (4.8-10.8)
[2018-01-23 05:42] LABS: CALCIUM 7.1 mg/dL (8.5-10.3)
[2018-01-23 05:43] LABS: CREATININE 7.5 mg/dL (0.6-1.2)
[2018-01-23] MEDS: HYDROcod/ACETAM 5/325 MG TABLET PO PRN (06:26)
[2018-01-23] MEDS: ONDANSETRON 4 MG/2 ML VIAL IVP PRN ×2 (08:58→21:28)
[2018-01-23] MEDS: CITALOPRAM 10 MG TABLET PO SCH (08:59)
[2018-01-23] MEDS: SODIUM CHLORIDE FLUSH 0.9% 10 ML SYRINGE IVP PRN (08:59)
[2018-01-23] MEDS: NIFEdipine ER 30 MG TABLET PO SCH (09:00)
[2018-01-23] MEDS: AZITHROMYCIN 250 MG TABLET PO SCH (09:00)
[2018-01-23] MEDS: POLYETHYLENE GLYCOL 3350 17 GM PACKET PO SCH (09:00)
[2018-01-23] MEDS: METOPROLOL SUCCINATE 50 MG TABLET PO SCH ×2 (09:00→20:55)
[2018-01-23] MEDS: INSULIN GLARGINE 300 UNIT/3 ML PEN SUBQ SCH ×2 (09:01→20:55)
[2018-01-23] MEDS: INSULIN ASPART 300 UNIT/3 ML PEN SUBQ SCH ×4 (09:03→20:55)
--- NOTE | 2018-01-23 09:24 | PROVIDER PROGRESS NOTE ---
Subjective - Prog Note Date Prog Note Date: 01/23/18 Prog Note Time: 09:22 - Subjective Pt reports feeling: No change Subjective: Earl complains of anterior mid chest pain that becomes worse with coughing or taking deep breaths. He denies dizziness, rashes, runny nose, increased shortness of breath or diarrhea. He admits to mild nausea. Current Medications - Current Medications Current Medications: Active Medications Acetaminophen (Tylenol) 650 mg PO Q4HR PRN PRN Reason: Pain 1 to 4 Last Admin: 01/22/18 14:42 Dose: 650 mg Hydrocodone Bitart/Acetaminophen ([place] 5/325) 1 tab PO Q4HR PRN PRN Reason: Pain 5 to 7 Last Admin: 01/23/18 06:26 Dose: 1 tab Albuterol/Ipratropium (Duoneb) 3 ml INH Q4HR PRN PRN Reason: Wheezing Azithromycin (Zithromax) 250 mg PO DAILY [facility] Last Admin: 01/23/18 09:00 Dose: 250 mg Benzonatate (Tessalon) 100 mg PO TID PRN PRN Reason: Cough Last Admin: 01/24/18 00:49 Dose: 100 mg Citalopram Hydrobromide (Celexa) 20 mg PO DAILY [facility] Last Admin: 01/23/18 08:59 Dose: 20 mg Ceftriaxone Sodium 2 gm/ (Sodium Chloride) 100 mls @ 200 mls/hr IV Q24H [facility] Last Infusion: 01/24/18 01:52 Dose: Infused Potassium Chloride/Sodium Chloride (Normal Saline 0.9% W/20 Meq Kcl) 1,000 mls @ 50 mls/hr IV .Q20H [facility] Last Admin: 01/23/18 10:57 Dose: 50 mls/hr Insulin Aspart (Novolog) 3 - 11 unit SUBQ 0800,1200,1700,2100 [facility]; Protocol Last Admin: 01/23/18 20:55 Dose: Not Given Insulin Glargine (Lantus Solostar) 5 unit SUBQ QDBREAKFAST [facility] Last Admin: 01/23/18 09:01 Dose: 5 unit Insulin Glargine (Lantus Solostar) 10 unit SUBQ QPM [facility] Last Admin: 01/23/18 20:55 Dose: 10 unit Metoprolol Succinate (Toprol Xl) 150 mg PO BID [facility] Last Admin: 01/23/18 20:55 Dose: 150 mg Nifedipine (Procardia Xl) 30 mg PO DAILY [facility] Last Admin: 01/23/18 09:00 Dose: 30 mg Ondansetron HCl (Zofran Inj) 4 mg IVP Q6HR PRN PRN Reason: Nausea / Vomiting Last Admin: 01/23/18 21:28 Dose: 4 mg Ondansetron HCl (Zofran Odt) 4 mg TL Q6HR PRN PRN Reason: Nausea / Vomiting Last Admin: 01/24/18 01:22 Dose: 4 mg Polyethylene Glycol (Miralax) 17 gm PO DAILY [facility] Last Admin: 01/23/18 09:00 Dose: Not Given Prochlorperazine Edisylate (Compazine Inj) 10 mg IVP Q6HR PRN PRN Reason: Nausea / Vomiting Last Admin: 01/24/18 03:47 Dose: 10 mg Sodium Chloride (Normal Saline Flush 0.9%) 10 ml IVP PRN PRN PRN Reason: NEEDED PER PROVIDER ORDERS Last Admin: 01/23/18 08:59 Dose: 10 ml Sodium Chloride (Normal Saline Flush 0.9%) 10 ml IVP 0100,0900,1700 [facility] Last Admin: 01/24/18 03:48 Dose: 10 ml Chlorthalidone 25 mg PO DAILY 01/21/18 Citalopram Hydrobromide [Celexa] 20 mg PO DAILY 01/21/18 Furosemide 40 mg PO DAILY 01/21/18 Insulin Aspart (Vial) [NovoLOG (VIAL FOR ED USE)] 21 units SUBQ DAILY 01/21/18 Metoprolol Succinate [Toprol Xl] 100 mg PO BID 01/21/18 NIFEdipine [Nifedipine ER] 30 mg PO QPM 01/21/18 Objective - Vital Signs/Intake & Output Reviewed Vital Signs: Yes Vital Signs: Vital Signs x48h Temp Pulse Resp BP Pulse Ox 01/23/18 07:53 37.1 C 79 14 156/86 H 93 Intake & Output: Intake & Output 01/20/18 01/21/18 01/22/18 01/23/18 23:59 23:59 23:59 23:59 Intake Total 10 4398.666 4421.667 568.333 Output Total 2100 800 Balance 10 2298.666 3621.667 568.333 - Objective General Appearance: positive: Alert, Moderate distress Eyes Bilateral: positive: Normal inspection ENT: positive: Pharynx nml, Dry mucous membranes Neck: positive: Thyroid nml, No JVD Respiratory: positive: No respiratory distress, Rhonchi Cardiovascular: positive: Regular rate & rhythm, No gallop Peripheral Pulses: 1+ Radial (R) Abdomen: positive: Nml bowel sounds Back: positive: Nml inspection Skin: positive: No rash, Warm, Dry Extremities: positive: Non-tender, Pedal edema, Joint swelling, Other Neurologic/Psychiatric: positive: Oriented x3, CN's nml (2-12), Motor nml, Sensation nml, Depressed mood/affect Reflexes: Bicep (R): 3+, Bicep (L): 3+ - Lab Results Fish Bones: 01/24/18 04:50 01/24/18 04:50 Other Labs: Lab Results x24hrs 01/23/18 01/23/18 01/23/18 Range/Units 07:52 04:45 04:45 WBC 6.2 (4.8-10.8) x10^3/uL RBC 2.98 L (4.70-6.10) 10^6/uL Hgb 9.3 L (14.0-18.0) g/dL Hct 28.3 L (42.0-52.0) % MCV 95.2 H (80.0-94.0) fL MCH 31.1 H (27.0-31.0) pg MCHC 32.7 (32.0-36.0) g/dL RDW 14.9 (12.0-15.0) % Plt Count 276 (130-450) 10^3/uL MPV 9.2 (7.4-11.4) fL Neut # (Auto) 4.3 (1.5-6.6) 10^3/uL Lymph # (Auto) 1.0 L (1.5-3.5) 10^3/uL [place] # (Auto) 0.5 (0.0-1.0) 10^3/uL Eos # (Auto) 0.4 (0.0-0.7) 10^3/uL Baso # (Auto) 0.0 (0.0-0.1) 10^3/uL Absolute Nucleated RBC 0.00 x10^3/uL Nucleated RBC % 0.0 /100WBC Sodium 136 (135-145) mmol/L Potassium 4.3 (3.5-5.0) mmol/L Chloride 107 (101-111) mmol/L Carbon Dioxide 17 L (21-32) mmol/L Anion Gap 12.0 (6-13) BUN 96 H* (6-20) mg/dL Creatinine 7.5 H* (0.6-1.2) mg/dL Estimated GFR (MDRD) 9 L (>89) Glucose 210 H (70-100) mg/dL POC Whole Bld Glucose 203 H (70 - 100) mg/dL Calcium 7.1 L (8.5-10.3) mg/dL 01/22/18 01/22/18 01/22/18 Range/Units 20:50 16:54 11:32 WBC (4.8-10.8) x10^3/uL RBC (4.70-6.10) 10^6/uL Hgb (14.0-18.0) g/dL Hct (42.0-52.0) % MCV (80.0-94.0) fL MCH (27.0-31.0) pg MCHC (32.0-36.0) g/dL RDW (12.0-15.0) % Plt Count (130-450) 10^3/uL MPV (7.4-11.4) fL Neut # (Auto) (1.5-6.6) 10^3/uL Lymph # (Auto) (1.5-3.5) 10^3/uL [place] # (Auto) (0.0-1.0) 10^3/uL Eos # (Auto) (0.0-0.7) 10^3/uL Baso # (Auto) (0.0-0.1) 10^3/uL Absolute Nucleated RBC x10^3/uL Nucleated RBC % /100WBC Sodium (135-145) mmol/L Potassium (3.5-5.0) mmol/L Chloride (101-111) mmol/L Carbon Dioxide (21-32) mmol/L Anion Gap (6-13) BUN (6-20) mg/dL Creatinine (0.6-1.2) mg/dL Estimated GFR (MDRD) (>89) Glucose (70-100) mg/dL POC Whole Bld Glucose 248 H 216 H 211 H (70 - 100) mg/dL Calcium (8.5-10.3) mg/dL - Diagnostic Imaging Diagnostic Imaging Results: positive: Final report reviewed Diagnostic Imaging Comments: EXAM: CHEST RADIOGRAPHY EXAM DATE: 01/21/2018 12:04 AM. IMPRESSION: 1. Patchy upper lobe infiltrates, right worse than left, with trace pleural effusions. Suspect pneumonia. 2. Recommend radiographic follow-up to show resolution. ABX Reporting Has patient been on IV antibiotics over the past 48 hours?: Yes Sepsis Event Note (H) - Evaluation Current Stage of Sepsis: Ruled out Assessment/Plan - Problem List (1) Bilateral pneumonia Impression: Imaging on admission showed a bilateral pneumonia with patchy infiltrates. Toda y on exam, the patient states that he has worsening chest pain that also goes into his throat when he coughs. He admits to a more "congested chest". Plan: continue treatment with Rocephin and Azithromycin, and Duo-nebs for shortness of breath. (2) Chest pain Impression: The patient states that today he has chest pain located in his mid chest, and this becomes worse with coughing or by inspiration. He states that his chest just feels tight. He denies ever having a MO. Plan: Serial troponins, EKG, continue to treat pneumonia, and obtain a sputum sample today. (3) Acute renal failure superimposed on stage 5 chronic kidney disease, not on chronic dialysis Impression: The patient recently had a fistula procedure to his left upper, inner arm. This is in the event of eventual dialysis. His creatinine today was 7.5, improved from the time of admission when it was ~8.0. He has BLE edema, and abdominal edema. Plan: Continue gentle IV fluids, control sugars and avoid nephrotoxins. (4) Type 1 diabetes mellitus with chronic kidney disease and hypertension Impression: The patient is no longer wearing his home units and his early AM sugar was 210 today. He has ranged fro 203-134 today and remains on 15 units of lantus daily, SSI and scheduled mealtime doses. He had a HgA1C of 11.7% on 01/21/18, showing poor control at home. Plan: continue BS checks, SSI, and lantus. (5) Anemia Impression: The patient had a very low hemoglobin of 6.7, and got 2 units of PRBCs. He has improved to ~9 today. He has no obvious signs of bleeding. This anemia is likely a consequence of his chronic kidney failure. Plan: continue daily labs. Qualifiers: Anemia type: due to chronic kidney disease
[2018-01-23] MEDS ORDERED: NS W/20 MEQ KCL 1,000 ML IV SCH (10:36)
[2018-01-23] MEDS ORDERED: IPRATROPIUM/ALBUTEROL 3 ML NEB INH PRN (23:13)
[2018-01-24] MEDS: BENZONATATE 100 MG CAPSULE PO PRN (00:49)
[2018-01-24] MEDS: SODIUM CHLORIDE FLUSH 0.9% 10 ML SYRINGE IVP SCH ×2 (01:09→03:48)
[2018-01-24] MEDS: ONDANSETRON ODT 4 MG TABLET TL PRN (01:22)
[2018-01-24] MEDS: cefTRIAXone 2 GM in SODIUM CHLORIDE 0.9% MINIBAG 100 ML IV SCH (01:22)
[2018-01-24 05:07] LABS: BASOPHILS # (AUTO) 0.1 10^3/uL (0.0-0.1); BASOPHILS % (AUTO) 1.3 %; EOSINOPHILS # (AUTO) 0.3 10^3/uL (0.0-0.7); EOSINOPHILS % (AUTO) 4.1 %; HGB - HEMOGLOBIN 9.2 g/dL (14.0-18.0); LYMPHOCYTES # (AUTO) 0.6 10^3/uL (1.5-3.5); LYMPHOCYTES % (AUTO) 9.7 %; MEAN CORPUSCULAR HEMOGLOBIN 31.3 pg (27.0-31.0); MEAN CORPUSCULAR HGB CONC 32.9 g/dL (32.0-36.0); MEAN CORPUSCULAR VOLUME 95.3 fL (80.0-94.0); MEAN PLATELET VOLUME 9.2 fL (7.4-11.4); MONOCYTES # (AUTO) 0.3 10^3/uL (0.0-1.0); MONOCYTES % (AUTO) 5.1 %; NEUTROPHILS # (AUTO) 5.4 10^3/uL (1.5-6.6); NEUTROPHILS % (AUTO) 79.8 %; PLT - PLATELET COUNT 275 10^3/uL (130-450); RED BLOOD COUNT 2.92 10^6/uL (4.70-6.10); RED CELL DISTRIBUTION WIDTH 14.8 % (12.0-15.0); WHITE BLOOD COUNT 6.7 x10^3/uL (4.8-10.8)
[2018-01-24 05:40] LABS: ALBUMIN 2.3 g/dL (3.2-5.5); ALBUMIN/GLOBULIN RATIO 0.6 (1.0-2.2); BILIRUBIN,TOTAL 0.6 mg/dL (0.2-1.0); CALCIUM 7.5 mg/dL (8.5-10.3); CREATININE 7.4 mg/dL (0.6-1.2); PHOSPHORUS 7.8 mg/dL (2.5-4.6); TOTAL PROTEIN 5.9 g/dL (6.7-8.2)
[2018-01-24] MEDS: POLYETHYLENE GLYCOL 3350 17 GM PACKET PO SCH (07:30)
[2018-01-24] MEDS: INSULIN ASPART 300 UNIT/3 ML PEN SUBQ SCH ×2 (08:30→12:15)
[2018-01-24] MEDS: NIFEdipine ER 30 MG TABLET PO SCH (08:32)
[2018-01-24] MEDS: AZITHROMYCIN 250 MG TABLET PO SCH (08:32)
[2018-01-24] MEDS: INSULIN GLARGINE 300 UNIT/3 ML PEN SUBQ SCH (08:32)
[2018-01-24] MEDS: METOPROLOL SUCCINATE 50 MG TABLET PO SCH (08:33)
[2018-01-24] MEDS: CITALOPRAM 10 MG TABLET PO SCH (08:33)
--- NOTE | 2018-01-24 08:35 | PROVIDER PROGRESS NOTE ---
Subjective - Prog Note Date Prog Note Date: 01/24/18 Prog Note Time: 08:31 - Subjective Pt reports feeling: No change Objective - Vital Signs/Intake & Output Vital Signs: Vital Signs x48h Temp Pulse Resp BP Pulse Ox 01/24/18 00:36 36.7 C 74 18 145/81 H 96 Intake & Output: Intake & Output 01/21/18 01/22/18 01/23/18 01/24/18 23:59 23:59 23:59 23:59 Intake Total 4398.666 4421.667 2258.333 100 Output Total 2100 800 2075 2 Balance 2298.666 3621.667 183.333 98 - Lab Results Fish Bones: 01/24/18 04:50 01/24/18 04:50 Other Labs: Lab Results x24hrs 01/24/18 01/24/18 01/24/18 Range/Units 07:51 04:50 04:50 WBC (4.8-10.8) x10^3/uL RBC (4.70-6.10) 10^6/uL Hgb (14.0-18.0) g/dL Hct (42.0-52.0) % MCV (80.0-94.0) fL MCH (27.0-31.0) pg MCHC (32.0-36.0) g/dL RDW (12.0-15.0) % Plt Count (130-450) 10^3/uL MPV (7.4-11.4) fL Neut # (Auto) (1.5-6.6) 10^3/uL Lymph # (Auto) (1.5-3.5) 10^3/uL Marion # (Auto) (0.0-1.0) 10^3/uL Eos # (Auto) (0.0-0.7) 10^3/uL Baso # (Auto) (0.0-0.1) 10^3/uL Absolute Nucleated RBC x10^3/uL Nucleated RBC % /100WBC Sodium (135-145) mmol/L Potassium (3.5-5.0) mmol/L Chloride (101-111) mmol/L Carbon Dioxide (21-32) mmol/L Anion Gap (6-13) BUN (6-20) mg/dL Creatinine (0.6-1.2) mg/dL Estimated GFR (MDRD) (>89) Glucose (70-100) mg/dL POC Whole Bld Glucose 211 H (70 - 100) mg/dL Lactic Acid 0.8 (0.5-2.2) mmol/L Calcium (8.5-10.3) mg/dL Phosphorus (2.5-4.6) mg/dL Magnesium (1.7-2.8) mg/dL Total Bilirubin (0.2-1.0) mg/dL AST (10-42) IU/L ALT (10-60) IU/L Alkaline Phosphatase (42-121) IU/L Troponin I (<0.49) ng/mL B-Natriuretic Peptide 1625 H (5-100) pg/mL Total Protein (6.7-8.2) g/dL Albumin (3.2-5.5) g/dL Globulin (2.1-4.2) g/dL Albumin/Globulin Ratio (1.0-2.2) 01/24/18 01/24/18 01/23/18 Range/Units 04:50 04:50 20:50 WBC 6.7 (4.8-10.8) x10^3/uL RBC 2.92 L (4.70-6.10) 10^6/uL Hgb 9.2 L (14.0-18.0) g/dL Hct 27.8 L (42.0-52.0) % MCV 95.3 H (80.0-94.0) fL MCH 31.3 H (27.0-31.0) pg MCHC 32.9 (32.0-36.0) g/dL RDW 14.8 (12.0-15.0) % Plt Count 275 (130-450) 10^3/uL MPV 9.2 (7.4-11.4) fL Neut # (Auto) 5.4 (1.5-6.6) 10^3/uL Lymph # (Auto) 0.6 L (1.5-3.5) 10^3/uL Marion # (Auto) 0.3 (0.0-1.0) 10^3/uL Eos # (Auto) 0.3 (0.0-0.7) 10^3/uL Baso # (Auto) 0.1 (0.0-0.1) 10^3/uL Absolute Nucleated RBC 0.00 x10^3/uL Nucleated RBC % 0.0 /100WBC Sodium 139 (135-145) mmol/L Potassium 4.9 (3.5-5.0) mmol/L Chloride 109 (101-111) mmol/L Carbon Dioxide 16 L (21-32) mmol/L Anion Gap 14.0 H (6-13) BUN 94 H* (6-20) mg/dL Creatinine 7.4 H* (0.6-1.2) mg/dL Estimated GFR (MDRD) 9 L (>89) Glucose 224 H (70-100) mg/dL POC Whole Bld Glucose (70 - 100) mg/dL Lactic Acid (0.5-2.2) mmol/L Calcium 7.5 L (8.5-10.3) mg/dL Phosphorus 7.8 H (2.5-4.6) mg/dL Magnesium 2.0 (1.7-2.8) mg/dL Total Bilirubin 0.6 (0.2-1.0) mg/dL AST 13 (10-42) IU/L ALT 17 (10-60) IU/L Alkaline Phosphatase 75 (42-121) IU/L Troponin I < 0.04 (<0.49) ng/mL B-Natriuretic Peptide (5-100) pg/mL Total Protein 5.9 L (6.7-8.2) g/dL Albumin 2.3 L (3.2-5.5) g/dL Globulin 3.6 (2.1-4.2) g/dL Albumin/Globulin Ratio 0.6 L (1.0-2.2) 01/23/18 01/23/18 01/23/18 Range/Units 20:45 16:55 15:08 WBC (4.8-10.8) x10^3/uL RBC (4.70-6.10) 10^6/uL Hgb (14.0-18.0) g/dL Hct (42.0-52.0) % MCV (80.0-94.0) fL MCH (27.0-31.0) pg MCHC (32.0-36.0) g/dL RDW (12.0-15.0) % Plt Count (130-450) 10^3/uL MPV (7.4-11.4) fL Neut # (Auto) (1.5-6.6) 10^3/uL Lymph # (Auto) (1.5-3.5) 10^3/uL Marion # (Auto) (0.0-1.0) 10^3/uL Eos # (Auto) (0.0-0.7) 10^3/uL Baso # (Auto) (0.0-0.1) 10^3/uL Absolute Nucleated RBC x10^3/uL Nucleated RBC % /100WBC Sodium (135-145) mmol/L Potassium (3.5-5.0) mmol/L Chloride (101-111) mmol/L Carbon Dioxide (21-32) mmol/L Anion Gap (6-13) BUN (6-20) mg/dL Creatinine (0.6-1.2) mg/dL Estimated GFR (MDRD) (>89) Glucose (70-100) mg/dL POC Whole Bld Glucose 134 H 156 H (70 - 100) mg/dL Lactic Acid (0.5-2.2) mmol/L Calcium (8.5-10.3) mg/dL Phosphorus (2.5-4.6) mg/dL Magnesium (1.7-2.8) mg/dL Total Bilirubin (0.2-1.0) mg/dL AST (10-42) IU/L ALT (10-60) IU/L Alkaline Phosphatase (42-121) IU/L Troponin I < 0.04 (<0.49) ng/mL B-Natriuretic Peptide (5-100) pg/mL Total Protein (6.7-8.2) g/dL Albumin (3.2-5.5) g/dL Globulin (2.1-4.2) g/dL Albumin/Globulin Ratio (1.0-2.2) 01/23/18 01/23/18 01/23/18 Range/Units 12:17 09:05 09:05 WBC (4.8-10.8) x10^3/uL RBC (4.70-6.10) 10^6/uL Hgb (14.0-18.0) g/dL Hct (42.0-52.0) % MCV (80.0-94.0) fL MCH (27.0-31.0) pg MCHC (32.0-36.0) g/dL RDW (12.0-15.0) % Plt Count (130-450) 10^3/uL MPV (7.4-11.4) fL Neut # (Auto) (1.5-6.6) 10^3/uL Lymph # (Auto) (1.5-3.5) 10^3/uL Marion # (Auto) (0.0-1.0) 10^3/uL Eos # (Auto) (0.0-0.7) 10^3/uL Baso # (Auto) (0.0-0.1) 10^3/uL Absolute Nucleated RBC x10^3/uL Nucleated RBC % /100WBC Sodium (135-145) mmol/L Potassium (3.5-5.0) mmol/L Chloride (101-111) mmol/L Carbon Dioxide (21-32) mmol/L Anion Gap (6-13) BUN (6-20) mg/dL Creatinine (0.6-1.2) mg/dL Estimated GFR (MDRD) (>89) Glucose (70-100) mg/dL POC Whole Bld Glucose 171 H (70 - 100) mg/dL Lactic Acid (0.5-2.2) mmol/L Calcium (8.5-10.3) mg/dL Phosphorus 7.8 H (2.5-4.6) mg/dL Magnesium (1.7-2.8) mg/dL Total Bilirubin (0.2-1.0) mg/dL AST (10-42) IU/L ALT (10-60) IU/L Alkaline Phosphatase (42-121) IU/L Troponin I < 0.04 (<0.49) ng/mL B-Natriuretic Peptide (5-100) pg/mL Total Protein (6.7-8.2) g/dL Albumin (3.2-5.5) g/dL Globulin (2.1-4.2) g/dL Albumin/Globulin Ratio (1.0-2.2) Sepsis Event Note (H) - Evaluation Current Stage of Sepsis: Ruled out Assessment/Plan - Problem List (3) Acute renal failure superimposed on stage 5 chronic kidney disease, not on chronic dialysis Impression: I spoke to the patient's primary kidney/transplant provider, Dr. Cristiane Sauceda regarding his patient and next steps in care. He states that his baseline creatinine is typically 5.5, so with his creatinine being 7.4 today, this is much above his baseline. He states that is nausea and vomiting is likely a consequence of his previous DKA episodes, gastroparesis. He believes that there is no urgent need for hemodialysis today, but if his K+ continues to elevate, this may change. Plan: Stop fluids, hold diuretics, monitor daily labs. (5) Anemia Qualifiers: Anemia type: due to chronic kidney disease
[2018-01-24] MEDS: METOCLOPRAMIDE 10 MG/2 ML VIAL IVP SCH ×2 (09:25→15:25)
[2018-01-24] MEDS: HYDROcod/ACETAM 5/325 MG TABLET PO PRN (12:57)
[2018-01-24] MEDS ORDERED: FUROSEMIDE 40 MG TABLET PO SCH (13:10)
[2018-01-24] MEDS ORDERED: LORazepam 0.5 MG TABLET PO PRN (13:13)
[2018-01-24] MEDS: SODIUM CHLORIDE FLUSH 0.9% 10 ML SYRINGE IVP PRN (15:25)
--- NOTE | 2018-01-24 15:34 | Discharge Plan ---
Discharge Plan Disposition: Home, Self Care Condition: Good Prescriptions: Metoclopramide [Reglan] 10 mg PO Q6H #30 tablet Moxifloxacin [Avelox] 400 mg PO DAILY #7 tablet Saccharomyces Boulardii [Florastor] 250 mg PO BID #60 capsule Diet: Diabetic Activity Restrictions: No Restrictions Shower Restrictions: No Weight Bearing: Full Weight Instruction Topics: Saccharomyces boulardii Florastor oral dosage forms, Moxifloxacin tablets Additional Instructions or Follow Up instructions: You were admitted for bilateral pneumonia and treated with IV antibiotics. You should continue this treatment at home for the next 7 days. Please also take a probiotic for the next month as these antibiotics can be hard on your bowels. Please plan to follow up with your nephrology team, Dr. Sauceda in early February. He would like to talk to you more about hemodialysis as an out patient while you await your possible kidney transplant. You received 2 units of blood while here, since your blood counts were very low. You are treated for your anemia at Dr. Sauceda's office with a monthly injection. Your hemoglobin A1C was elevated at 11.7% on 01/21/18, but this may be a little inaccurate with your blood counts being so low. Please keep in good contact with your diabetic nurse and resume your previous insulin scheduled at home. Please see your PCP within one week for labs and to ensure the pneumonia has cleared. Follow-Up Care: [facility] - Diabetes Ed No Smoking: If you smoke, Please STOP! Call for help. Follow-up with: Yolande Craig ARNP [Primary Care Provider] -
--- NOTE | 2018-01-24 15:42 | DISCHARGE SUMMARY ---
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 Acute renal failure superimposed on stage 5 chronic kidney disease, not on chronic dialysis (N17.9) chronic, stable. Type 1 diabetes mellitus with chronic kidney disease and hypertension (E10.22) chronic, stable. Anemia of chronic disease (D63.8) chronic, stable. Chest pain (R07.9) improved, stable. - HPI History of Present Illness: Earl Stark is a 32-year old male with an extensive history including stage V CKD from uncontrolled DM, toe/foot amputation, HTN and is about to get a fistula to prepare for the near inevitability of dialysis. He was last admitted 03/2017 bc of cough but was found to only have a URI. But his gluocse was uncontrolled and his creat was sharply elevated. He was also noted to have anemia of chronic disease and needed transfusion for a hgb of 6. Since then, there have a few encounters in the ER for nausea. Tonight he came in because he thought his leg was broken. He had fallen 5-6 days ago and hurt his fight tib fib area and it is painful to weight bear. His pain is from the groin and down to the foot. If he stays off of it with RICE it improves, but once he's, up it hurts. So he came to the ER for evaluation and was found not to have a fracture, but his glucose was in the 500's, and his creat was now 8. Dr. Aly spoke to his nephrology online advertising manager and they feel he can be treated here for his glucose and the pneumonia we see on CXR (ROS is negative for cough, fever, chills, chest congestion). If his creatinine rises further tomorrow, they request he be transferred then. He has retinopathy, neuropathy but denies any chronic lung disease or heart disease. He was admitted for inpatient care. - HOSPITAL COURSE Hospital Course: I spoke to the patient's primary kidney/transplant provider, Dr. Cristiane Sauceda regarding his patient and next steps in care. He states that his baseline creatinine is typically 5.5, so with his creatinine being 7.4 today, this is much above his baseline. He states that is nausea and vomiting is likely a consequence of his previous DKA episodes, gastroparesis. He believes that there is no urgent need for hemodialysis today, but if his K+ continues to elevate, this may change. The patient was medically stable at the time of discharge and had Thanksgiving plans including riding to the [place]. I sent prescriptions to a [facility] pharmacy to accommodate his travel plans. He should come in on MondayJanuary 25 to check labs to ensure that his K+ is stable as this would necessitate the need for more urgent dialysis. - ALLERGIES Allergies/Adverse Reactions: Allergies Allergy/AdvReac Type Severity Reaction Status Date / Time clindamycin Allergy Rash Verified 01/20/18 22:49 vancomycin Allergy Rash Verified 01/20/18 22:49 hydralazine AdvReac Emesis Verified 01/20/18 22:49 - MEDICATIONS Home Medications: Ambulatory Orders Medication Instructions Recorded Confirmed Chlorthalidone 25 mg PO DAILY 01/21/18 01/21/18 Citalopram Hydrobromide [Celexa] 20 mg PO DAILY 01/21/18 01/21/18 Furosemide 40 mg PO DAILY 01/21/18 01/21/18 Insulin Aspart (Vial) [NovoLOG 21 units SUBQ DAILY 01/21/18 01/21/18 (VIAL FOR ED USE)] Metoprolol Succinate [Toprol Xl] 100 mg PO BID 01/21/18 01/21/18 NIFEdipine [Nifedipine ER] 30 mg PO QPM 01/21/18 01/21/18 Metoclopramide [Reglan] 10 mg PO Q6H #30 tablet 01/24/18 Moxifloxacin [Avelox] 400 mg PO DAILY #7 tablet 01/24/18 Saccharomyces Boulardii [Florastor] 250 mg PO BID #60 capsule 01/24/18 - PHYSICAL EXAM AT DISCHARGE General Appearance: positive: No acute distress, Alert Eyes Bilateral: positive: PERRL ENT: positive: Pharynx nml, No signs of dehydration Neck: positive: Thyroid nml, No JVD, Trachea midline, Lymphadenopathy (R), Lymphadenopathy (L) Respiratory: positive: Chest non-tender, Rhonchi Cardiovascular: positive: Regular rate & rhythm, Systolic murmur, Decreased pulse(s) Peripheral Pulses: positive: 1+ Abdomen: positive: Non-tender, Nml bowel sounds, Other (rounded, full, soft) Back: positive: Nml inspection Skin: positive: No rash, Warm, Dry, Pallor Extremities: positive: Non-tender, Pedal edema (pitting, chronic, dependent.), Joint swelling Neurologic/Psychiatric: positive: Oriented x3, CN's nml (2-12), Motor nml, Sensation nml, Depressed mood/affect Reflexes: Bicep (R): 2+, Bicep (L): 2+ - LABS Result Diagrams: 01/24/18 04:50 01/24/18 04:50 - DIAGNOSTIC IMAGING Diagnostic Imaging Results: Final report reviewed Diagnostic Imaging Results Comments: EXAM: CHEST RADIOGRAPHY EXAM DATE: 01/21/2018 12:04 AM. IMPRESSION: 1. Patchy upper lobe infiltrates, right worse than left, with trace pleural effusions. Suspect pneumonia. 2. Recommend radiographic follow-up to show resolution. - SEPSIS Current Stage of Sepsis: Ruled out - FOLLOW UP Follow Up: Disposition: 01 Home, Self Care Prescriptions: Metoclopramide [Reglan] 10 mg PO Q6H #30 tablet Moxifloxacin [Avelox] 400 mg PO DAILY #7 tablet Saccharomyces Boulardii [Florastor] 250 mg PO BID #60 capsule Diet: Diabetic Instruction Topics: Saccharomyces boulardii Florastor oral dosage forms, Moxifloxacin tablets Additional Instructions or Follow Up instructions: You were admitted for bilateral pneumonia and treated with IV antibiotics. You should continue this treatment at home for the next 7 days. Please also take a probiotic for the next month as these antibiotics can be hard on your bowels. Please plan to follow up with your nephrology team, Dr. Sauceda in early February. He would like to talk to you more about hemodialysis as an out patient while you await your possible kidney transplant. You received 2 units of blood while here, since your blood counts were very low. You are treated for your anemia at Dr. Sauceda's office with a monthly injection. Your hemoglobin A1C was elevated at 11.7% on 01/21/18, but this may be a little inaccurate with your blood counts being so low. Please keep in good contact with your diabetic nurse and resume your previous insulin scheduled at home. Please see your PCP within one week for labs and to ensure the pneumonia has cleared. - TIME SPENT Time Spent in Discharge (Minutes): 65
[2018-01-24 16:02] VITALS: BP 126/77
[2018-01-24] MEDS ORDERED: METOPROLOL SUCCINATE 50 MG TABLET PO SCH (17:00)
[2018-01-24] MEDS ORDERED: NIFEDIPINE 30 MG PO SCH (21:00)
[2018-01-25] MEDS ORDERED: FUROSEMIDE 40 MG TABLET PO SCH (09:00)
== END 2018-01-24 15:40 | disposition home or self-care (01) | DRG 682 ==
LOC: ED 22:37 → MS3 01-21 03:01
PROVIDERS: ADMIT Specialist; ATTEND Nurse Practitioner
PROC: 30233N1 Transfusion of Nonautologous Red Blood Cells into Peripheral Vein, Percutaneous Approach (ICD-10-PCS; principal; 2018-01-21)
DX: N17.9 Acute kidney failure, unspecified (principal); J18.9 Pneumonia, unspecified organism; I12.0 Hypertensive chronic kidney disease with stage 5 chronic kidney disease or end stage renal disease; N18.5 Chronic kidney disease, stage 5; E10.22 Type 1 diabetes mellitus with diabetic chronic kidney disease; E10.65 Type 1 diabetes mellitus with hyperglycemia; E10.319 Type 1 diabetes mellitus with unspecified diabetic retinopathy without macular edema; E10.40 Type 1 diabetes mellitus with diabetic neuropathy, unspecified; E10.43 Type 1 diabetes mellitus with diabetic autonomic (poly)neuropathy; K31.84 Gastroparesis; E10.51 Type 1 diabetes mellitus with diabetic peripheral angiopathy without gangrene; R07.9 Chest pain, unspecified; M79.604 Pain in right leg; D63.1 Anemia in chronic kidney disease; F32.9 Major depressive disorder, single episode, unspecified; F41.9 Anxiety disorder, unspecified; Z89.432 Acquired absence of left foot; Z91.81 History of falling
CPT/HCPCS: 36415; 71046; 80048; 80053; 81001; 81003; 82009; 82803; 83036; 83605; 83690; 83735; 83880; 84100; 84484; 85014; 85018; 85025; 86850; 86900; 86901; 86920; 87040; 87086; 93005; 96361; 96365; 96375; 99284; 99285

== ENCOUNTER 2018-01-28 15:42 | Emergency (ER) | payer OTHER ==
--- NOTE | 2018-01-28 16:02 | ED Physician Documentation ---
PD HPI CHEST PAIN - Stated complaint Stated Complaint: CHEST PX - Chief complaint Chief Complaint: Abd Pain - History obtained from History obtained from: Patient, Family (dad) - History of Present Illness Timing - onset: Other (32-year-old gentleman with long-standing diabetes and chronic renal insufficiency being prepared for dialysis. He has a mature fistula in the left upper extremity. He presents with 2 days of central chest pain radiating to the upper abdomen but not the back. Over the last 8 or 10 hours it has been severe with decreased urine output. Much of the history is from the father, the patient is restless. He will not say much to me other than "I need pain medication.") Review of Systems Unable to obtain: Uncooperative PD PAST MEDICAL HISTORY - Past Medical History Cardiovascular: Hypertension Respiratory: None Neuro: Peripheral neuropathy Endocrine/Autoimmune: Type 1 diabetes GI: None : Renal insuffiency HEENT: Chronic vision loss Psych: Anxiety Musculoskeletal: Other (s/p partial amputation of left foot for PVD) Derm: None - Past Surgical History Past Surgical History: Yes Ortho: Amputation - Present Medications Home Medications: Ambulatory Orders Medication Instructions Recorded Confirmed Chlorthalidone 25 mg PO DAILY 01/21/18 01/21/18 Citalopram Hydrobromide [Celexa] 20 mg PO DAILY 01/21/18 01/21/18 Furosemide 40 mg PO DAILY 01/21/18 01/21/18 Insulin Aspart (Vial) [NovoLOG 21 units SUBQ DAILY 01/21/18 01/21/18 (VIAL FOR ED USE)] Metoprolol Succinate [Toprol Xl] 100 mg PO BID 01/21/18 01/21/18 NIFEdipine [Nifedipine ER] 30 mg PO QPM 01/21/18 01/21/18 Moxifloxacin [Avelox] 400 mg PO DAILY #7 tablet 01/24/18 Metoclopramide [Reglan] 10 mg PO Q6H #25 tablet 01/27/18 Promethazine Sup [Phenergan Supp] 12.5 mg MN Q8H #15 supp 01/27/18 Saccharomyces Boulardii [Florastor] 250 mg PO BID #60 capsule 01/27/18 - Allergies Allergies/Adverse Reactions: Allergies Allergy/AdvReac Type Severity Reaction Status Date / Time clindamycin Allergy Rash Verified 01/28/18 15:52 vancomycin Allergy Rash Verified 01/28/18 15:52 hydralazine AdvReac Emesis Verified 01/28/18 15:52 - Social History Does the pt smoke?: No Smoking Status: Former smoker Does the pt drink ETOH?: No Does the pt have substance abuse?: No - Immunizations Immunizations are current?: Yes - POLST Patient has POLST: No POLST Status: Full Code PD ED PE NORMAL - Vitals Vital signs reviewed: Yes - General General: Other (He is alert, keeping his eyes closed and moaning in pain. He is relatively uncooperative.) - HEENT HEENT: PERRL, EOMI - Neck Neck: Supple, no meningeal sign, No bony TTP - Cardiac Cardiac: RRR, No murmur - Respiratory Respiratory: No respiratory distress, Clear bilaterally - Abdomen Abdomen: Normal bowel sounds, Soft, Non tender - Back Back: No CVA TTP, No spinal TTP - Derm Derm: Normal color, Warm and dry - Extremities Extremities: No edema, No calf tenderness / cord Results - Vitals Vitals: Vital Signs - 24 hr 01/28/18 01/28/18 01/28/18 15:50 17:05 17:14 Temperature 36.7 C Heart Rate 90 81 82 Respiratory 20 21 12 Rate Blood Pressure 170/87 H 148/83 H 144/84 H O2 Saturation 100 100 98 01/28/18 19:01 Temperature Heart Rate 75 Respiratory 11 L Rate Blood Pressure 142/79 H O2 Saturation 93 Oxygen O2 Source Nasal cannula Oxygen Flow Rate 2 - EKG (time done) 1556 Rate: Rate (enter#) (92) Rhythm: NSR Kake: Normal Intervals: Normal MN, Prolonged QT QRS: Normal Ischemia: Normal ST segments Computer interpretation: Agree with computer - Labs Labs: Laboratory Tests 01/28/18 01/28/18 01/28/18 16:15 16:15 16:15 WBC 13.0 H RBC 2.95 L Hgb 9.0 L Hct 27.1 L MCV 92.0 MCH 30.6 MCHC 33.3 RDW 14.3 Plt Count 337 MPV 8.5 Neut # (Auto) 11.1 H Lymph # (Auto) 1.0 L Miner # (Auto) 0.6 Eos # (Auto) 0.1 Baso # (Auto) 0.1 Absolute Nucleated RBC 0.00 Nucleated RBC % 0.0 VBG pH VBG pCO2 VBG pO2 VBG HCO3 VBG Total CO2 VBG O2 Saturation VBG Base Excess Sodium 141 Potassium 3.9 Chloride 108 Carbon Dioxide 16 L Anion Gap 17.0 H BUN 92 H* Creatinine 8.3 H* Estimated GFR (MDRD) 8 L Glucose 250 H Calcium 8.3 L Total Bilirubin 0.6 AST 35 ALT 25 Alkaline Phosphatase 76 Troponin I 0.09 Total Protein 6.7 Albumin 3.0 L Globulin 3.7 Albumin/Globulin Ratio 0.8 L Lipase 21 L Serum Ketones 01/28/18 01/28/18 01/28/18 16:15 16:15 18:00 WBC RBC Hgb Hct MCV MCH MCHC RDW Plt Count MPV Neut # (Auto) Lymph # (Auto) Miner # (Auto) Eos # (Auto) Baso # (Auto) Absolute Nucleated RBC Nucleated RBC % VBG pH 7.562 H VBG pCO2 20.4 L VBG pO2 61.0 H VBG HCO3 17.9 L VBG Total CO2 18.6 L VBG O2 Saturation 93.6 H VBG Base Excess -2.9 L Sodium Potassium Chloride Carbon Dioxide Anion Gap BUN Creatinine Estimated GFR (MDRD) Glucose Calcium Total Bilirubin AST ALT Alkaline Phosphatase Troponin I 0.08 Total Protein Albumin Globulin Albumin/Globulin Ratio Lipase Serum Ketones SMALL H - Rads (name of study) 1v chest Radiology: EMP read contemporaneously (Interval resolution of right upper lobe infiltrate, new mild patchy airspace disease in the right base with persistent trace right pleural effusion) PD MEDICAL DECISION MAKING - ED course ED course: This is a 32-year-old gentleman with long-standing type 1 diabetes and worsening renal failure with anasarca and anuria now associated with chest pain. His EKG is unremarkable but now he has an indeterminate troponin which he did not on the last admission at which time all of his troponins were undetectable. After some IV Dilaudid and some nitroglycerin his pain was much better. Workup demonstrates worsening renal function, acidosis, anion gap. Metabolic alkalosis with respiratory compensation. Troponin was borderline, repeated after 2 hours and slightly lower/stable. Talked with [facility] for transfer given the fact that he will probably need transfer to a facility capable of both dialysis and cardiology consultation. Dr. Gutierrez there says that he can go to the [facility] and we can contact them directly. Spoke with Dr Chung at [facility]- they do not have beds and do not anticipate an opening in the next few days. [facility] was consulted again and Dr. Gutierrez there arranged for a bed at [facility] under the care of Dr. Marium Barajas. [place] were completed. He is stable for transfer and transfer is necessary to a higher level of care, again with cardiology and nephrology consultation and inpatient dialysis capability. Departure - Departure Disposition: 02 Transfer Acute Care Hosp Clinical Impression: Anemia in chronic kidney disease Qualifiers: Chronic kidney disease stage: stage 5, not on chronic dialysis Qualified Code(s): N18.5 - Chronic kidney disease, stage 5 HTN (hypertension) Qualifiers: Hypertension type: essential hypertension Qualified Code(s): I10 - Essential (primary) hypertension Chest pain Qualifiers: Chest pain type: intercostal pain Qualified Code(s): R07.82 - Intercostal pain Acute renal failure superimposed on stage 5 chronic kidney disease, not on chronic dialysis Qualifiers: Acute renal failure type: unspecified Qualified Code(s): N17.9 - Acute kidney failure, unspecified Type 1 diabetes mellitus Qualifiers: Diabetes mellitus complication status: with hyperglycemia Qualified Code(s): E10.65 - Type 1 diabetes mellitus with hyperglycemia Condition: Serious
[2018-01-28] MEDS ORDERED: HYDROmorphone 1 MG/ML CARPUJECT IVP STA (16:06)
[2018-01-28 16:24] LABS: BASOPHILS # (AUTO) 0.1 10^3/uL (0.0-0.1); BASOPHILS % (AUTO) 1.1 %; EOSINOPHILS # (AUTO) 0.1 10^3/uL (0.0-0.7); EOSINOPHILS % (AUTO) 0.4 %; LYMPHOCYTES % (AUTO) 7.8 %; MEAN CORPUSCULAR HEMOGLOBIN 30.6 pg (27.0-31.0); MEAN CORPUSCULAR HGB CONC 33.3 g/dL (32.0-36.0); MEAN PLATELET VOLUME 8.5 fL (7.4-11.4); MONOCYTES # (AUTO) 0.6 10^3/uL (0.0-1.0); MONOCYTES % (AUTO) 4.6 %; NEUTROPHILS # (AUTO) 11.1 10^3/uL (1.5-6.6); NEUTROPHILS % (AUTO) 86.1 %; PLT - PLATELET COUNT 337 10^3/uL (130-450); RED BLOOD COUNT 2.95 10^6/uL (4.70-6.10); RED CELL DISTRIBUTION WIDTH 14.3 % (12.0-15.0)
[2018-01-28 16:25] LABS: VBG BASE EXCESS -2.9 mmol/L (-2 - +2); VBG PCO2 20.4 mmHg (41-51); VBG PH 7.562 (7.31-7.41); VBG TOTAL CO2 18.6 mmol/L (24-29)
[2018-01-28 16:39] LABS: ALBUMIN/GLOBULIN RATIO 0.8 (1.0-2.2); BILIRUBIN,TOTAL 0.6 mg/dL (0.2-1.0); CALCIUM 8.3 mg/dL (8.5-10.3); TOTAL PROTEIN 6.7 g/dL (6.7-8.2)
[2018-01-28 16:41] LABS: CREATININE 8.3 mg/dL (0.6-1.2)
[2018-01-28] MEDS ORDERED: ASPIRIN CHEW 81 MG TABLET PO STA (16:56)
[2018-01-28] MEDS ORDERED: METOPROLOL 5 MG/5 ML VIAL IVP STA (16:56)
[2018-01-28] MEDS ORDERED: NITROGLYCERIN 50 MG/250 ML 50 MG/250 ML BOTTLE IV STA (16:56)
[2018-01-28] MEDS ORDERED: PROMETHAZINE INJ 25 MG in SODIUM CHLORIDE 0.9% 50 ML IV STA (17:10)
[2018-01-28] MEDS ORDERED: HYDROmorphone 2 MG/ML VIAL IVP STA (17:10)
--- NOTE | 2018-01-28 17:46 | XRAY Report ---
Reason: chest pain Procedure Date: 01/28/2018 Accession Number: [id number] / [id number] Procedure: XR - Chest 1 View X-Ray CPT Code: 72788 FULL RESULT: EXAM: CHEST RADIOGRAPHY EXAM DATE: 01/28/2018 05:21 PM. CLINICAL HISTORY: Chest pain today. Fever and vomiting x4 days. COMPARISON: CHEST 2 VIEW 01/21/2018 12:04 AM CHEST 2 VIEW 04/20/2017 7:56 PM XR CHEST 1 VIEW AP/PA 11/11/2017 8:42 AM. TECHNIQUE: 1 view. FINDINGS: Lungs/Pleura: Interval resolution of previously demonstrated subtle right upper lobe infiltrate. Patchy airspace opacity in the medial right base. Persistent trace right pleural effusion. No pneumothorax Mediastinum: No focal consolidation or evidence of edema. No pleural effusion or pneumothorax. Other: The bones are unremarkable. IMPRESSION: 1. Interval resolution of previously demonstrated subtle right upper lobe infiltrate. 2. New mild patchy airspace opacity in the medial right base, which could represent infection or aspiration given history of vomiting. 3. Persistent trace right pleural effusion. RADIA
[2018-01-28] MEDS ORDERED: NITROGLYCERIN 2% PASTE TOP STA (19:13)
[2018-01-28 21:08] VITALS: BP 134/82
== END 2018-01-28 22:20 | disposition short-term general hospital (02) ==
LOC: ED 15:42
DX: I13.11 Hypertensive heart and chronic kidney disease without heart failure, with stage 5 chronic kidney disease, or end stage renal disease (principal); E10.22 Type 1 diabetes mellitus with diabetic chronic kidney disease; N18.5 Chronic kidney disease, stage 5; N17.9 Acute kidney failure, unspecified; Z99.2 Dependence on renal dialysis; R07.82 Intercostal pain; E10.42 Type 1 diabetes mellitus with diabetic polyneuropathy; I45.81 Long QT syndrome; E10.65 Type 1 diabetes mellitus with hyperglycemia; Z89.432 Acquired absence of left foot
CPT/HCPCS: 36415; 71045; 80053; 82009; 82803; 83690; 84484; 85025; 93005; 96365; 96375; 99284; 99285; A9270; J1170; J7040

== ENCOUNTER 2018-03-02 23:18 | Emergency (ER) | payer OTHER ==
[2018-03-02 23:40] VITALS: BP 160/84
[2018-03-02] MEDS ORDERED: ACETAMINOPHEN 500 MG TABLET PO STA (23:55)
[2018-03-03] MEDS ORDERED: DEXAMETHASONE 10 MG/ML VIAL PO STA (01:17)
[2018-03-03] MEDS ORDERED: ALBUTEROL NEB 2.5 MG/3 ML INH STA (01:17)
[2018-03-03] MEDS ORDERED: AZITHROMYCIN 250 MG TABLET PO STA (01:17)
[2018-03-03] MEDS ORDERED: BENZONATATE 100 MG CAPSULE PO STA (01:17)
--- NOTE | 2018-03-03 01:41 | XRAY Report ---
Reason: cough and fever Procedure Date: 03/03/2018 Accession Number: [id number] / [id number] Procedure: XR - Chest 2 View X-Ray CPT Code: 98677 FULL RESULT: EXAM: CHEST RADIOGRAPHY EXAM DATE: 03/03/2018 01:36 AM. CLINICAL HISTORY: Cough and fever. COMPARISON: 01/29/2018 1:52 AM. TECHNIQUE: 2 views. FINDINGS: Lungs/Pleura: Small right effusion. No focal infiltrate or pneumothorax. Mediastinum: Heart and mediastinal contours are unremarkable. Other: None. IMPRESSION: Small right effusion. RADIA
--- NOTE | 2018-03-03 01:59 | ED Physician Documentation ---
PD HPI URI - Stated complaint Stated Complaint: COUGH - Chief complaint Chief Complaint: General - History obtained from History obtained from: Patient - History of Present Illness Timing - onset: How many weeks ago (1) Timing duration: Weeks (1) Timing details: Gradual onset, Still present (worse cough and higher fever the past couple of days.) Contributing factors: COPD / asthma. No: Sick contact, Travel, Immunocompromised, Unimmunized Similar symptoms before: No diagnosis Recently seen: Not recently seen Review of Systems Constitutional: denies: Fever, Chills Nose: reports: Congestion. denies: Rhinorrhea / runny nose Throat: denies: Sore throat Cardiac: reports: Chest pain / pressure (with coughing). denies: Palpitations, Pedal edema, Calf pain Respiratory: reports: Dyspnea, Cough GI: denies: Nausea, Vomiting, Diarrhea Skin: denies: Rash, Lesions PD PAST MEDICAL HISTORY - Past Medical History Past Medical History: Yes Cardiovascular: Hypertension Respiratory: None Neuro: Peripheral neuropathy Endocrine/Autoimmune: Type 1 diabetes GI: None : Renal insuffiency HEENT: Chronic vision loss Psych: Anxiety Musculoskeletal: Other Derm: None Other Past Medical History: DIALYSIS PATIENT... - Past Surgical History Past Surgical History: Yes Ortho: Amputation - Present Medications Home Medications: Ambulatory Orders Medication Instructions Recorded Confirmed Chlorthalidone 25 mg PO DAILY 01/21/18 01/21/18 Citalopram Hydrobromide [Celexa] 20 mg PO DAILY 01/21/18 01/21/18 Furosemide 40 mg PO DAILY 01/21/18 01/21/18 Insulin Aspart (Vial) [NovoLOG 21 units SUBQ DAILY 01/21/18 01/21/18 (VIAL FOR ED USE)] Metoprolol Succinate [Toprol Xl] 100 mg PO BID 01/21/18 01/21/18 NIFEdipine [Nifedipine ER] 30 mg PO QPM 01/21/18 01/21/18 Moxifloxacin [Avelox] 400 mg PO DAILY #7 tablet 01/24/18 Metoclopramide [Reglan] 10 mg PO Q6H #25 tablet 01/27/18 Promethazine Sup [Phenergan Supp] 12.5 mg DE Q8H #15 supp 01/27/18 Saccharomyces Boulardii [Florastor] 250 mg PO BID #60 capsule 11/24/18 Albuterol Sulf [Ventolin Hfa 2 puffs INH Q4HR PRN #1 inhaler 03/03/18 Inhaler] Azithromycin [Zithromax] 0 mg PO DAILY #4 tablet 03/03/18 Benzonatate [Tessalon Perle] 100 mg PO TID PRN #30 capsule 03/03/18 Dexamethasone [Decadron] 4 mg PO DAILY #5 tablet 03/03/18 - Allergies Allergies/Adverse Reactions: Allergies Allergy/AdvReac Type Severity Reaction Status Date / Time clindamycin Allergy Rash Verified 03/02/18 23:40 vancomycin Allergy Rash Verified 03/02/18 23:40 hydralazine AdvReac Emesis Verified 03/02/18 23:40 - Social History Does the pt smoke?: No Smoking Status: Never smoker Does the pt drink ETOH?: No Does the pt have substance abuse?: No - Immunizations Immunizations are current?: Yes - POLST Patient has POLST: No POLST Status: Full Code PD ED PE NORMAL - Vitals Vital signs reviewed: Yes - General General: Alert and oriented X 3, No acute distress, Well developed/nourished - HEENT HEENT: Pharynx benign - Neck Neck: Supple, no meningeal sign, No adenopathy - Cardiac Cardiac: No murmur. No: RRR (regular but tachycardic) - Respiratory Respiratory: No: Clear bilaterally (wheezing and decreased tidal volume. No coarse sounds. ) - Abdomen Abdomen: Soft, Non tender - Back Back: No CVA TTP - Derm Derm: Normal color, Warm and dry, No rash - Extremities Extremities: No tenderness to palpate, Normal ROM s pain, No edema, No calf tenderness / cord - Neuro Neuro: Alert and oriented X 3, No motor deficit, Normal speech Results - Vitals Vitals: Oxygen O2 Source Room air - Rads (name of study) chest xray Radiology: Prelim report reviewed (small right effusion. no infiltrates. ), See rad report PD MEDICAL DECISION MAKING - ED course Complexity details: considered differential (He has had prolonged cough and symptoms consistent with upper respiratory infection and now having worsening cough with sputum production and fevers. There is no infiltrate on x-ray but we will treated as a bacterial bronchitis especially in lieu of his underlying diabetes.), d/w patient Departure - Departure Disposition: 01 Home, Self Care Clinical Impression: Upper respiratory infection Qualifiers: URI type: unspecified URI Qualified Code(s): J06.9 - Acute upper respiratory infection, unspecified Bronchitis, acute Qualifiers: Bronchitis organism: unspecified organism Qualified Code(s): J20.9 - Acute bronchitis, unspecified Condition: Stable Record reviewed to determine appropriate education?: Yes Instructions: ED Upper Resp Infec Abx Tx Prescriptions: Albuterol Sulf [Ventolin Hfa Inhaler] 2 puffs INH Q4HR PRN #1 inhaler PRN Reason: Shortness Of Air/Wheezing Azithromycin [Zithromax] 0 mg PO DAILY #4 tablet Benzonatate [Tessalon Perle] 100 mg PO TID PRN #30 capsule PRN Reason: Cough Dexamethasone [Decadron] 4 mg PO DAILY #5 tablet Comments: Your chest x-ray appears normal without any signs of pneumonia right now. We would be concerned for bacterial bronchitis and so we will treat this with azithromycin antibiotic as well as an albuterol inhaler 2 puffs 4 times a day for the next week or 2. Also use Decadron steroid anti-inflammatory daily for 5 more days to help reduce throat and bronchial irritation. Tessalon if needed for cough. Recheck if not improving over the next few days. Discharge Date/Time: 03/03/18 02:12
== END 2018-03-03 02:12 | disposition home or self-care (01) ==
LOC: ED 23:18
DX: J20.9 Acute bronchitis, unspecified (principal); J06.9 Acute upper respiratory infection, unspecified; J90 Pleural effusion, not elsewhere classified; E10.42 Type 1 diabetes mellitus with diabetic polyneuropathy; Z79.4 Long term (current) use of insulin; I10 Essential (primary) hypertension
CPT/HCPCS: 71046; 94640; 94664; 99283; A9270

== ENCOUNTER 2018-05-28 05:41 | Outpatient (CLI) | payer OTHER | END 2018-05-28 05:42 | disposition critical access hospital (66) | LOC: EMS 05:41 | PROVIDERS: ATTEND Surgery | DX: I46.9 Cardiac arrest, cause unspecified (principal) | CPT/HCPCS: A0425; A0433 ==

== ENCOUNTER 2018-05-28 05:51 | Emergency (ER) | payer OTHER ==
[2018-05-28] MEDS ORDERED: EPINEPHrine ABBOJECT 1 MG/10 ML SYRINGE IVP ONE ×5 (05:52→07:11)
[2018-05-28] MEDS ORDERED: CALCIUM CHLORIDE ABBOJECT 1000MG/10 ML SYRINGE IVP ONE (05:52)
[2018-05-28] MEDS ORDERED: NALOXONE 0.4 MG/1 ML 10 ML MDV IV ONE (05:52)
[2018-05-28] MEDS ORDERED: SODIUM BICARBONATE ABBOJECT 50 MEQ/50 ML SYRINGE IVP ONE (05:52)
[2018-05-28] MEDS ORDERED: AMIODARONE 150 MG/3 ML VIAL IV ONE (05:52)
[2018-05-28] MEDS ORDERED: PROCAINAMIDE 1,000 MG/10 ML SYRINGE IVP ONE (05:52)
[2018-05-28] MEDS ORDERED: SODIUM CHLORIDE 0.9% 1,000 ML IV ONE ×3 (06:11→06:51)
[2018-05-28 06:25] VITALS: BP 114/62
[2018-05-28 06:25] LABS: BASOPHILS # (AUTO) 0.1 10^3/uL (0.0-0.1); BASOPHILS % (AUTO) 0.8 %; EOSINOPHILS # (AUTO) 0.1 10^3/uL (0.0-0.7); EOSINOPHILS % (AUTO) 0.3 %; LYMPHOCYTES # (AUTO) 2.1 10^3/uL (1.5-3.5); LYMPHOCYTES % (AUTO) 11.8 %; MEAN CORPUSCULAR HEMOGLOBIN 32.5 pg (27.0-31.0); MEAN CORPUSCULAR HGB CONC 28.1 g/dL (32.0-36.0); MEAN CORPUSCULAR VOLUME 115.8 fL (80.0-94.0); MEAN PLATELET VOLUME 9.7 fL (7.4-11.4); MONOCYTES # (AUTO) 1.1 10^3/uL (0.0-1.0); MONOCYTES % (AUTO) 6.2 %; NEUTROPHILS # (AUTO) 14.2 10^3/uL (1.5-6.6); NEUTROPHILS % (AUTO) 80.9 %; PLT - PLATELET COUNT 159 10^3/uL (130-450); RED BLOOD COUNT 2.47 10^6/uL (4.70-6.10); RED CELL DISTRIBUTION WIDTH 19.5 % (12.0-15.0); WHITE BLOOD COUNT 17.5 x10^3/uL (4.8-10.8)
[2018-05-28] MEDS ORDERED: AMIODARONE 360 MG/200 ML 200 ML IV ONE ×2 (06:33→07:19)
[2018-05-28 06:41] LABS: MUDS CUTOFF CONCENTRATIONS CUTOFF CONC BELOW:
[2018-05-28] MEDS ORDERED: EPINEPHrine 1 MG/ML AMP ONE (06:46)
[2018-05-28 06:47] LABS: BILIRUBIN,URINE NEGATIVE (NEGATIVE); GLUCOSE, URINE (UA) 500 mg/dL (NEGATIVE); KETONES,URINE (UA) NEGATIVE (NEGATIVE); LEUKOCYTE ESTERASE, URINE NEGATIVE (NEGATIVE); NITRITE,URINE NEGATIVE (NEGATIVE); OCCULT BLOOD,URINE SMALL (NEGATIVE); PH,URINE 7.5 PH (5.0-7.5); PROTEIN,URINE >=300 mg/dL (NEGATIVE); UROBILINOGEN,URINE 0.2 (NORMAL) E.U./dL (NORMAL)
--- NOTE | 2018-05-28 06:47 | ED Physician Documentation ---
PD HPI CPR - Stated complaint Stated Complaint: CPR - Chief complaint Chief Complaint: Cardiac - History obtained from History obtained from: EMS - History of Present Illness Timing - onset: How many hours ago (1 hr ago patient was found down, unknown downtime. CPR started. 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: CPR, Intubated, Epi Review of Systems Unable to obtain: Unresponsive, Intubated PD PAST MEDICAL HISTORY - Past Medical History Cardiovascular: Hypertension Respiratory: None Neuro: Peripheral neuropathy Endocrine/Autoimmune: Type 1 diabetes GI: None : Renal insuffiency HEENT: Chronic vision loss Psych: Anxiety Musculoskeletal: Other Derm: None - Past Surgical History Past Surgical History: Yes Ortho: Amputation - Present Medications Home Medications: Ambulatory Orders Medication Instructions Recorded Confirmed Chlorthalidone 25 mg PO DAILY 01/21/18 01/21/18 Citalopram Hydrobromide [Celexa] 20 mg PO DAILY 01/21/18 01/21/18 Furosemide 40 mg PO DAILY 01/21/18 01/21/18 Insulin Aspart (Vial) [NovoLOG 21 units SUBQ DAILY 01/21/18 01/21/18 (VIAL FOR ED USE)] Metoprolol Succinate [Toprol Xl] 100 mg PO BID 01/21/18 01/21/18 NIFEdipine [Nifedipine ER] 30 mg PO QPM 01/21/18 01/21/18 Moxifloxacin [Avelox] 400 mg PO DAILY #7 tablet 01/24/18 Metoclopramide [Reglan] 10 mg PO Q6H #25 tablet 01/27/18 Promethazine Sup [Phenergan Supp] 12.5 mg [place] Q8H #15 supp 01/27/18 Saccharomyces Boulardii [Florastor] 250 mg PO BID #60 capsule 01/27/18 Albuterol Sulf [Ventolin Hfa 2 puffs INH Q4HR PRN #1 inhaler 03/03/18 Inhaler] Azithromycin [Zithromax] 0 mg PO DAILY #4 tablet 03/03/18 Benzonatate [Tessalon Perle] 100 mg PO TID PRN #30 capsule 03/03/18 Dexamethasone [Decadron] 4 mg PO DAILY #5 tablet 03/03/18 - Allergies Allergies/Adverse Reactions: Allergies Allergy/AdvReac Type Severity Reaction Status Date / Time clindamycin Allergy Rash Verified 03/02/18 23:40 vancomycin Allergy Rash Verified 03/02/18 23:40 hydralazine AdvReac Emesis Verified 03/02/18 23:40 - Living Situation Living Situation: reports: With family Living Arrangement: reports: At home - Social History Does the pt smoke?: No Smoking Status: Never smoker Does the pt drink ETOH?: No Does the pt have substance abuse?: No - Family History Family history: reports: Other (Reviewed and not pertinent) - Immunizations Immunizations are current?: Yes - POLST Patient has POLST: No POLST Status: Full Code PD ED PE NORMAL - Vitals Vital signs reviewed: Yes - General General: Other (CPR in progress) - HEENT HEENT: Other (pupils fixed, no sign of trauma) - Neck Neck: No JVD - Cardiac Cardiac: Other (CPR in progress) - Respiratory Respiratory: Other (crackles bilaterally) - Abdomen Abdomen: Other (distended) - Back Back: Other (no deformity) - Derm Derm: Other (pale) - Extremities Extremities: No deformity - Neuro Neuro: Other (intubated, GCS 3 w no sedation) Results - Vitals Vitals: Vital Signs - 24 hr 05/28/18 06:10 Heart Rate 71 Respiratory 24 Rate Blood Pressure 114/62 O2 Saturation 96 Oxygen O2 Source Ambu bag Oxygen Flow Rate 15 - Labs Labs: Laboratory Tests 05/28/18 05/28/18 05/28/18 06:09 06:12 06:12 WBC 17.5 H RBC 2.47 L Hgb 8.0 L Hct 28.6 L MCV 115.8 H MCH 32.5 H MCHC 28.1 L RDW 19.5 H Plt Count 159 MPV 9.7 Manual Slide Review Indicated Troponin I 0.17 Urine Color YELLOW Urine Clarity CLEAR Urine pH 7.5 Ur Specific [place] 1.020 Urine Protein >=300 Urine Glucose (UA) 500 H Urine Ketones NEGATIVE Urine Occult Blood SMALL H Urine Nitrite NEGATIVE Urine Bilirubin NEGATIVE Urine Urobilinogen 0.2 (NORMAL) Ur Leukocyte Esterase NEGATIVE Ur Microscopic Review INDICATED Urine Culture Comments Not Reportable PD MEDICAL DECISION MAKING - ED course Complexity details: reviewed results, re-evaluated patient, considered d ifferential, d/w family ED course: 33-year-old male with history of end-stage renal disease with an greater than 1 hour of CPR. Patient briefly regained pulses after CPR including double sequential defibrillation, epi, calcium, bicarb, Narcan. During second round of CPR patient received double sequential defibrillation, magnesium, amiodarone. Efforts were ceased at the point of medical futility. - Critical Care Time(min): 30 Time Includes: Direct patient care, Review records, Reassess patient, Document care, Coordinate care, Family consult for tx dec Data interpretation: Labs, Pulse ox, See progress note Procedures included in critical care time: See progress note Procedures excluded from critical care time: See progress note Departure - Departure Disposition: 20 Clinical Impression: Cardiac arrest Condition: Stable
[2018-05-28 06:50] LABS: CLARITY,URINE CLEAR (CLEAR)
[2018-05-28 06:57] LABS: AMPHETAMINE SCREEN,URINE NEGATIVE (NEGATIVE); BENZODIAZEPINES SCREEN, URINE NEGATIVE (NEGATIVE); COCAINE SCREEN URINE NEGATIVE (NEGATIVE); METHADONE SCREEN, URINE NEGATIVE (NEGATIVE); METHAMPHETAMINES SCREEN, URINE NEGATIVE (NEGATIVE); OPIATE SCREEN, URINE NEGATIVE (NEGATIVE); OXYCODONE SCREEN, URINE NEGATIVE (NEGATIVE); PROPOXYPHENE SCREEN, URINE NEGATIVE (NEGATIVE); TRICYCLIC ANTIDEPRESSANT,URINE NEGATIVE (NEGATIVE)
[2018-05-28 07:01] LABS: BACTERIA,URINE Few /HPF (None Seen); RBC,URINE 0-5 /HPF (0-5); SQUAMOUS EPITHELIAL CELL,UR NONE SEEN (<= Few)
[2018-05-28] MEDS ORDERED: EPINEPHrine 1 MG/1 ML 30 ML MDV IVP STA (07:05)
[2018-05-28] MEDS ORDERED: EPINEPHrine ABBOJECT 1 MG/10 ML SYRINGE IVP STA (07:07)
[2018-05-28 07:11] LABS: RBC MORPHOLOGY (MULTIPLE) 4+ ANISOCYTOSIS (NORMAL)
[2018-05-28] MEDS ORDERED: NALOXONE 0.4 MG/ML VIAL IVP STA ×3 (07:12→07:14)
[2018-05-28] MEDS ORDERED: SODIUM BICARBONATE ABBOJECT 50 MEQ/50 ML SYRINGE IVP STA ×2 (07:15)
[2018-05-28] MEDS ORDERED: MAGNESIUM SULFATE 2 GRAM 2 GM/50 ML BAG IV ONE (07:16)
[2018-05-28 07:17] LABS: ALBUMIN 2.2 g/dL (3.2-5.5); ALBUMIN/GLOBULIN RATIO 0.7 (1.0-2.2); ALKALINE PHOSPHATASE 145 IU/L (42-121); ALT ALANINE AMINOTRANSFERASE 220 IU/L (10-60); AST ASPARTATE AMINOTRANSFERASE 283 IU/L (10-42); BILIRUBIN,TOTAL 1.6 mg/dL (0.2-1.0); BUN - BLOOD UREA NITROGEN 76 mg/dL (6-20); CALCIUM 8.3 mg/dL (8.5-10.3); CHLORIDE 96 mmol/L (101-111); CK- CREATINE KINASE 401 IU/L (22-269); GFR - MDRD 9 (>89); GLUCOSE 492 mg/dL (70-100); LIPASE 32 U/L (22-51); SODIUM 134 mmol/L (135-145); TOTAL PROTEIN 5.5 g/dL (6.7-8.2)
[2018-05-28 07:18] LABS: CARBON DIOXIDE - CO2 11 mmol/L (21-32)
[2018-05-28] MEDS ORDERED: AMIODARONE 150 MG/3 ML VIAL IVP STA (07:18)
[2018-05-28 07:19] LABS: CREATININE 7.1 mg/dL (0.6-1.2)
[2018-05-28] MEDS ORDERED: CALCIUM CHLORIDE ABBOJECT 1000MG/10 ML SYRINGE IVP STA ×2 (07:21)
== END 2018-05-28 10:25 | disposition expired ==
LOC: EDUNIT# → ED 05:51
DX: I46.9 Cardiac arrest, cause unspecified (principal); E10.65 Type 1 diabetes mellitus with hyperglycemia; I12.0 Hypertensive chronic kidney disease with stage 5 chronic kidney disease or end stage renal disease; E10.22 Type 1 diabetes mellitus with diabetic chronic kidney disease; N18.6 End stage renal disease
CPT/HCPCS: 36415; 51702; 80053; 80306; 80320; 81001; 82550; 83605; 83690; 84484; 85025; 92950; 93005; 94770; 99291; J0282; J2690; 81003; 85610; 87040; 87086; 99285